=== PATIENT | male | born 1950 | race African-American/Black ===

== ENCOUNTER 2018-10-28 11:03 | Emergency (ER) | payer MEDICARE, BC, MEDICAID ==
[2018-10-28 11:58] LABS: #Basophils 0.1 thou/uL (0.0-0.2); #Eosinphils 0.1 thou/uL (0.0-0.7); #Lymphocytes 2.2 thou/uL (1.20-3.40); #Monocytes 0.4 thou/uL (0.11-0.59); #Neutrophils 2.5 thou/uL (1.40-6.50); %Basophils 1.1 % (0.0-1.0); %Lymphocytes 41.9 % (21.0-51.0); %Monocytes 8.1 % (0.0-10.0); %Neutrophils 46.8 % (42.0-75.0); Hemoglobin 15.1 g/dL (14.0-18.0); Mean Corpuscular HGB CONC 31.4 g/dL (32.0-36.0); Mean Corpuscular Hemoglobin 28.8 pg (27.0-31.0); Mean Corpuscular Volume 91.7 fL (78.0-98.0); Mean Platelet Volume 10.7 fL (7.4-10.4); Platelet Count 100 thou/uL (130-400); RBC Distribution Width 14.4 % (11.5-14.5); Red Blood Cell (RBC) Count 5.25 mill/uL (4.70-6.10); White Blood Cell (WBC) Count 5.3 thou/uL (4.8-10.8)
[2018-10-28 12:16] LABS: Blood, Urine Large (Negative); Glucose, Urine (Dipstick) Negative (Negative); Leukocyte Negative (Negative); Protein, Urine (Dipstick) > or equal to 300 mg/dL (Neg-Trace)
[2018-10-28 12:19] LABS: Bilirubin Unable to Interpret (Negative); Clarity Turbid (Clear); Nitrite Unable to Interpret (Negative); Urobilinogen UNABLE TO INTERPRET mg/dL (Less than 2)
[2018-10-28 12:21] LABS: ALT (SGPT) Less than 7 U/L (8-55); AST (SGOT) 11 U/L (5-34); Alkaline Phosphatase 90 U/L (40-150); Anion Gap 10 mmol/L (10-20); BUN (Urea Nitrogen) 12 mg/dL (8.4-25.7); Bilirubin, Total 0.5 mg/dL (0.2-1.2); Calc. Creatinine Clearance 0 mL/min (70-130); Calcium 8.4 mg/dL (7.8-10.44); Carbon Dioxide 25 mmol/L (23-31); Chloride 106 mmol/L (98-107); Estimated GFR-MDRD Greater than 90; Globulin 4.2 g/dL (2.4-3.5); Glucose 90 mg/dL (80-115); Potassium 3.5 mmol/L (3.5-5.1); Protein, Total 7.2 g/dL (5.8-8.1); Sodium 137 mmol/L (136-145)
[2018-10-28 12:37] LABS: Bacteria/HPF None Seen HPF (None Seen); RBC/HPF Greater than 50 HPF (0-3); Squamous Epithelial None Seen HPF (0-3)
== END 2018-10-28 15:00 | disposition home or self-care (01) ==
LOC: ERS 11:03
DX: R31.9 Hematuria, unspecified (principal); I48.91 Unspecified atrial fibrillation; I10 Essential (primary) hypertension; Z86.73 Personal history of transient ischemic attack (TIA), and cerebral infarction without residual deficits
CPT/HCPCS: 36415; 80053; 81003; 81015; 83605; 85025; 87077; 87086; 87186; 99283

== ENCOUNTER 2019-03-07 01:57 | Emergency (ER) | payer MEDICARE, BC, MEDICAID ==
--- NOTE | 2019-03-07 08:08 | RAD ---
CHEST 1 VIEW: INDICATION: Difficulty breathing. IMPRESSION: There is cardiomegaly and pulmonary vascular congestion. There is left infrahilar airspace edema. T here is a small left pleural effusion. Tracheostomy tube is in place. No pneumothorax is evident. POS: [facility]
== END 2019-03-07 04:37 | disposition home or self-care (01) ==
LOC: ERS 01:57
DX: J95.09 Other tracheostomy complication (principal); R06.02 Shortness of breath
CPT/HCPCS: 31502; 71045

== ENCOUNTER 2020-04-22 09:35 | Inpatient (IN) | payer MEDICARE, BC, MEDICAID ==
--- NOTE | 2020-04-22 10:57 | RAD ---
XR Chest 1 View Portable History: Dyspnea Comparison: Radiograph March 2020 Findings: Tracheostomy tube tip at the clavicular level. Moderate pleural effusions. Mild compressive atelectasis. Pulmonary arteries are enlarged. Aortic contour is ectatic. Impression: 1. Cardiomegaly and large pleural effusions. 2. Pulmonary hypertension and aortic ectasia.
[2020-04-22 11:09] LABS: ALT (SGPT) 11 U/L (8-55); AST (SGOT) 15 U/L (5-34); Albumin 3.3 g/dL (3.4-4.8); Alkaline Phosphatase 85 U/L (40-110); Anion Gap 23 mmol/L (10-20); BUN (Urea Nitrogen) 31 mg/dL (8.4-25.7); Bilirubin, Total 0.9 mg/dL (0.2-1.2); CK (CPK) 105 U/L (30-200); Calc. Creatinine Clearance 0 mL/min (70-130); Calcium 7.8 mg/dL (7.8-10.44); Carbon Dioxide 22 mmol/L (23-31); Chloride 96 mmol/L (98-107); Globulin 3.9 g/dL (2.4-3.5); Glucose 79 mg/dL (80-115); Lipase 30 U/L (8-78); Potassium 4.8 mmol/L (3.5-5.1); Protein, Total 7.2 g/dL (5.8-8.1); Sodium 136 mmol/L (136-145)
--- NOTE | 2020-04-22 11:45 | CT ---
CT Chest WO Con History: Shortness of breath Comparison: Chest radiograph same day Findings: Moderate left and small-moderate right pleural effusion. No pneumothorax. Heart size is enl arged. No significant pericardial effusion. Renal calculi on the left. Incomplete evaluation with appears to be a mass along the pancreatic tail measuring up to 3.8 cm. Moderate third spacing of fluid. No acute displaced rib fracture. Impression: 1. Moderate left and small-moderate right pleural effusions. 2. Moderate cardiomegaly with right atrial and right ventricular dilatation. 3. Pulmonary hypertension. 4. Left-sided renal calculi. 5. 3.8 cm mass centered at the pancreatic tail concerning for malignancy. Dedicated pancreatic protoc ol CT or MRI is recommended if renal function allows. 6. Cholel[address]iasis. Dr. Stephenson notified of findings via telephone at 11:40 AM.
[2020-04-22] MEDS ORDERED: Azithromycin 500 MG VIAL ONE (11:55)
[2020-04-22] MEDS ORDERED: Dexamethasone 10 MG/ML VIAL ONE (11:55)
--- NOTE | 2020-04-22 12:31 | PDOC.HHP ---
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 Patient also appears to have a history of chronic atrial fibrillation and fairly severe pulmonary hypertension. He is in chronic hypoxic respiratory failure requiring ventilator support 8 hours/day (according to Dr. Ang his banking services advisor) via a chronic trach. Patient reports that he saw Dr. Ang his banking services advisor a couple of days ago. He said since that time he has had worsening shortness of breath and ultimately presented to the emergency department. He does report that he has had some cough. Denies having any fever. Patient's only other concerns is that he says he has been having some difficulty urinating. When pressed he says he basically has not been peeing. Does not n ecessarily have dysuria or urgency. ED Course: Patient's initial chest x-ray appeared to show cardiomegaly with bilateral pleural effusions. ED physician was concerned that the patient had Covid. He gave him a dose of 10 mg of IV Decadron and azithromycin. He also received 1 L of IV fluids. Of note the patient presented initially normotensive but is subsequently been in the upper 80s systolic. Hospitalist ROS - Review of Systems Constitutional: denies: fever, chills Respiratory: reports: cough, shortness of breath. denies: pleuritic pain Cardiovascular: denies: chest pain, palpitations Gastrointestinal: denies: nausea, vomiting, abdominal pain Genitourinary: reports: other (Reduced urine output). denies: dysuria, frequency All other systems reviewed; all pertinent +/- noted in HPI/Subj - Medication Medications: Patient does not know his medications. He appears to be taking warfarin, Lasix, diltiazem, Lipitor, carvedilol Hospitalist History - Past Medical History Source: patient, old records Cardiac: reports: AFIB, HTN, Hyperlipidemia Pulmonary: reports: Other (Pulmonary hypertension) TECHNICAL SUPERVISOR: reports: Other (Incomplete quadriplegia) - Past Surgical History Other Surgical History: Cervical spinal fusion 1996 Lumbar spine surgery x2 Knee surgery Tracheostomy - Family History Family History: reports: no pertinent history - Social History Smoking Status: Never smoker Alcohol: reports: None Living Situation: With Family Other Social History: Patient lives with his who appears to be taking excellent care of him. He is full code. - Exam General Appearance: NAD General - other findings: Trach with trach collar. Slightly lethargic at times Eye: PERRL Heart: no murmur, no gallops, no rubs, irregular Respiratory: no ronchi, rales (Diffuse), wheezes (Occasional, mild.) Respiratory - other findings: Very diminished in general. Gastrointestinal: soft, non-tender, non-distended, normal bowel sounds, no palpable masses Extremities - other findings: Trace edema. Significant atrophy of the lower extremities. Skin: normal turgor Neurological - other findings: Quadriplegia Musculoskeletal: diffuse muscle atrophy Psychiatric: normal affect, lethargic Hospitalist Results - Labs Result Diagrams: 04/22/20 10:34 Lab results: Sodium 136 mmol/L (136-145) 04/22/20 10:34 Potassium 4.8 mmol/L (3.5-5.1) 04/22/20 10:34 Chloride 96 mmol/L (98-107) L 04/22/20 10:34 Carbon Dioxide 22 mmol/L (23-31) L 04/22/20 10:34 BUN 31 mg/dL (8.4-25.7) H 04/22/20 10:34 Creatinine 2.98 mg/dL (0.7-1.3) H 04/22/20 10:34 Glucose 79 mg/dL (80-115) L 04/22/20 10:34 Lactic Acid 2.0 mmol/L (0.5-2.2) 04/22/20 10:34 Calcium 7.8 mg/dL (7.8-10.44) 04/22/20 10:34 Total Bilirubin 0.9 mg/dL (0.2-1.2) 04/22/20 10:34 AST 15 U/L (5-34) 04/22/20 10:34 ALT 11 U/L (8-55) 04/22/20 10:34 Alkaline Phosphatase 85 U/L (40-110) 04/22/20 10:34 Creatine Kinase 105 U/L (30-200) 04/22/20 10:34 Troponin I 0.023 ng/mL (< 0.028) 04/22/20 10:34 B-Natriuretic Peptide 667.5 pg/mL (0-100) H 04/22/20 10:34 Serum Total Protein 7.2 g/dL (5.8-8.1) 04/22/20 10:34 Albumin 3.3 g/dL (3.4-4.8) L 04/22/20 10:34 Lipase 30 U/L (8-78) 04/22/20 10:34 - EKG Interpretation EKG: Atrial fibrillation with good rate control, left bundle branch block. - Radiology Interpretation Chest x-ray Status: image reviewed by me (Pleural effusions with significant cardiomegaly), report reviewed by me CT scan - chest Status: image reviewed by me, report reviewed by me Additional Comment: Impression: 1. Moderate left and small-moderate right pleural effusions. 2. Moderate cardiomegaly with right atrial and right ventricular dilatation. 3. Pulmonary hypertension. 4. Left-sided renal calculi. 5. 3.8 cm mass centered at the pancreatic tail concerning for malignancy. Dedicated pancreatic protocol CT or MRI is recommended if renal function allows. 6. Cholelithiasis. Hospitalist H&P A/P - Problem (1) SOB (shortness of breath) Code(s): R06.02 - SHORTNESS OF BREATH Status: Acute (2) SWETHA (acute kidney injury) Code(s): N17.9 - ACUTE KIDNEY FAILURE, UNSPECIFIED Status: Acute (3) Pulmonary hypertension Code(s): I27.20 - PULMONARY HYPERTENSION, UNSPECIFIED Status: Acute (4) Quadriplegia Code(s): G82.50 - QUADRIPLEGIA, UNSPECIFIED Status: Acute (5) Pancreatic mass Status: Acute (6) Atrial fibrillation Code(s): I48.91 - UNSPECIFIED ATRIAL FIBRILLATION Status: Acute (7) Chronic diastolic (congestive) heart failure Code(s): I50.32 - CHRONIC DIASTOLIC (CONGESTIVE) HEART FAILURE Status: Acute (8) Pleural effusion Code(s): J90 - PLEURAL EFFUSION, NOT ELSEWHERE CLASSIFIED Status: Acute - Plan Plan: Patient is a 69-year-old male with a history of quadriplegia with a trach and chronic daily ventilator support. Patient presented to the emergency department with worsening shortness of breath. In the emergency department the patient was initially found to be mildly hypotensive at 84/45 with a heart rate ranging from 70-110. He was felt to possibly have Covid pneumonia and was given Decadron and azithromycin in the emergency department. Chest x-ray confirmed bilateral pleural effusions and cardiomegaly. CT of the chest was not consistent with Covid pneumonia but did reveal pleural effusions and a 3.8 cm mass in the tail of the pancreas. Shortness of breath: Patient has a history of severe pulmonary hypertension. Patient also has a history of mucous plugging. Has bilateral pleural effusions. Some history of prior effusions concerning for congestive heart failure with elevated BNP. Patient appears slightly encephalopathic at times. Discussed with Dr. Ang. We will try to get the patient back on a ventilator here in the emergency department. Bronchodilators as needed. Covid test is pending. Patient does have an elevated D-dimer although it is not severe. May need to consider pulmonary embolus. Patient cannot receive contrast to his acute kidney injury. Unsure a VQ scan would be helpful in light of his pleural effusions. Patient appears to be on anticoagulation already. Checking INR. Pancreatic mass: Patient has a new finding of a 3.8 cm mass in the tail of the pancreas concerning for possible malignancy. Patient needs dedicated imaging however his renal function precludes any contrast at this time. Will consider reimaging once we attempt to get his renal function improved. Acute kidney injury: Patient's normal GFR has been around 90. Currently it is at 25. We will obtain renal ultrasound. Consult nephrology. Patient reported some decreased urine output but bladder catheterization today revealed 200 cc of urine. Patient reports she has been taking what he believes is adequate amounts of oral intake. Patient is on diuretics and may be dehydrated but he has good skin turgor. His renal indices do not appear to be prerenal in nature. Will gently hydrate. Chronic congestive heart failure: Not entirely clear if this is systolic or diastolic. Appeared to have preserved ejection fraction on his last echo in 2012. Diastolic function could not be fully assessed because of his atrial fibrillation. Currently holding diuretics due to his acute kidney injury. Repeat echocardiogram. Patient's BNP is elevated but it is not significantly different than his previous baselines. Atrial fibrillation: Appears to be permanent: Patient appears to be on calcium channel chad, beta-chad, warfarin. Obtain INR. Holding his diltiazem in light of his blood pressure: Continue with the carvedilol. Chronic hypoxic respiratory failure: Likely secondary to severe pulmonary hypertension. We will attempt to get the patient back on some ventilator support here in the emergency department. Consult Dr. Ang. Pleural effusions: Patient has small to moderate pleural effusions: Possibly related to chronic heart failure. Appear to be more chronic in nature based on his previous imaging.
[2020-04-22 13:19] LABS: Bacteria/HPF 4+ HPF (None Seen); Bilirubin 1+ (Negative); Blood, Urine 1+ (Negative); Clarity Turbid (Clear); Glucose, Urine (Dipstick) Normal (Negative); Ketone, Urine Negative (Negative); Leukocyte 500 Leu/uL (Negative); Nitrite Negative (Negative); Protein, Urine (Dipstick) 70 mg/dL (Neg-Trace); Squamous Epithelial 0-3 HPF (0-3); WBC/HPF Greater than 50 HPF (0-3)
[2020-04-22 13:24] LABS: INR-International Normal Ratio 1.7; PTT 40.2 sec (22.9-36.1); Prothrombin Time 20.3 sec (12.0-14.7)
[2020-04-22 13:49] LABS: Hemoglobin 15.4 g/dL (14.0-18.0); Mean Corpuscular HGB CONC 32.3 g/dL (32.0-36.0); Mean Corpuscular Hemoglobin 30.5 pg (27.0-31.0); Mean Corpuscular Volume 94.3 fL (78.0-98.0); Platelet Count 109 thou/uL (130-400); RBC Distribution Width 15.5 % (11.5-14.5); Red Blood Cell (RBC) Count 5.04 mill/uL (4.70-6.10); White Blood Cell (WBC) Count 6.2 thou/uL (4.8-10.8)
[2020-04-22 13:52] LABS: Band 8 % (5-11); Eosinophils 1 % (0-10); Large Platelets SLIGHT; Lymphocytes 8 % (21-51); MDiff Complete? YES; Monocytes 6 % (0-10); Neutrophil 68 % (42-75); Platelet Morphology Comment Appears Decreased; Polychromasia SLIGHT = 2-3 cells (100X) (0-2/hpf); Reactive Lymphocytes 9 % (0-10); Target Cells SLIGHT = 2-5 cells (100X) (0-1/hpf)
[2020-04-22 13:56] LABS: SARS-CoV-2 NAA Rapid Test Not Detected (NotDetected)
[2020-04-22] MEDS: Sodium Chloride 0.9% 1,000 ML IV SCH (15:02)
[2020-04-22] MEDS ORDERED: Piperacillin/Tazobactam 3.375 GM VIAL ONE (17:00)
[2020-04-22] MEDS: Piperacillin/Tazobactam 3.375 GM in Sodium Chloride 0.9% 100 ML IVPB SCH ×2 (17:00→22:25)
--- NOTE | 2020-04-22 17:23 | CON ---
DATE OF CONSULTATION: 04/22/2020 CONSULTING PHYSICIAN: Irvin Wong MD. REASON FOR CONSULTATION: Respiratory failure. HISTORY OF PRESENT ILLNESS: Mr. Lam is a 69-year-old male whom I know from office visits in the past. He has a history of quadriplegia, requiring nocturnal ventilation via trach. He has been having increasing difficulty with shortness of breath over the last month. He has come to the office twice. His takes excellent care of him and changes out the tracheostomy. He receives most of his care through [facility]. I am not sure what the events were led to him coming to the hospital today. His was not here when I arrived in the emergency room. It looks like he was having difficulty ventilating through his trach. I was able to obtain a bronchoscope and looked in the trach and found a huge mucus plug at the distal portion of the trach, which I was able to remove. The patient is saying that his might have COVID. PAST MEDICAL HISTORY: See above. Additionally, the patient has atrial fibrillation, hypertension, and hyperlipidemia. PAST SURGICAL HISTORY: Cervical spinal fusion, lumbar spine surgery, knee surgery, and tracheostomy. SOCIAL HISTORY: Does not smoke. Does not consume alcohol. Does not use illicit drugs. REVIEW OF SYSTEMS: He has had some weight loss, difficulty coughing last several months. PHYSICAL EXAMINATION: VITAL SIGNS: Heart rate in the 80s, blood pressure 130/70, respiratory rate 18, O2 saturation 91% on mechanical ventilation. GENERAL: He is a chronically ill-appearing male, in no acute distress. HEENT: Pupils are reactive. Sclerae anicteric. Oropharynx clear. NECK: Trach in good position. LUNGS: Poor air movement. CARDIOVASCULAR: S1 and S2. Regular. ABDOMEN: Soft and nontender. EXTREMITIES: Severe muscle wasting. LABORATORY DATA: White blood cell count 6.2, hematocrit 47.5, and platelet count 109. INR is 1.7, PTT 40.2. Sodium 136, potassium 4.8, chloride 96, CO2 of 22, BUN 31, creatinine 2.9, glucose 79. BNP 667. Urinalysis shows proteinuria. His COVID test is negative. CT of the chest was obtained and demonstrates bilateral small pleural effusions. He has cardiomegaly. He has pulmonary events, pulmonary hypertension. He has a 3.8-cm mass in the tail of pancreas, concerning for malignancy. ASSESSMENT: 1. Acute respiratory failure - probably from congestive heart failure, probably exacerbated by mucus plugging distally in his trach. 2. Quadriplegia. 3. Pancreatic mass. PLAN: He will be placed in the ICU on mechanical ventilation. I will start antibiotics and steroids. His heart failure is being addressed by the Hospitalist Service. Further disposition to follow. Job ID: [id number]
[2020-04-22] MEDS: Warfarin Sodium 5 MG TAB PO SCH (18:51)
[2020-04-22] MEDS: methylPREDNISolone Sod Succ 40 MG VIAL IVP SCH (18:52)
--- NOTE | 2020-04-22 19:29 | OP ---
DATE OF PROCEDURE: 04/22/2020 PROCEDURE PERFORMED: Bronchoscopy. PREOPERATIVE DIAGNOSIS: Possible tracheal obstruction. POSTOPERATIVE DIAGNOSIS: Distal tracheal mucous plugging. ANESTHESIA: None. DESCRIPTION OF PROCEDURE: This was done with the patient's verbal consent. The patient had the procedure performed at bedside in the ER. His alarms on the ventilator were showing high peak pressure prior to the procedure. Using an adapter, the bronchoscope was placed into the tracheostomy tube while on volume-cycled ventilation. The patient had a huge mucus plug just distally in the trachea. I had removed this with a large suction catheter. I inspected the rest of the airways and of concern was swelling in the left mainstem bronchus, which could be suction trauma, but also malignancy would have to be in the differential. This will have to be surveyed again later. Job ID: [id number]
[2020-04-22] MEDS: Carvedilol 3.125 MG TAB PO SCH (20:42)
[2020-04-22] MEDS: Atorvastatin Calcium 20 MG TAB PO SCH (20:43)
[2020-04-22] MEDS ORDERED: Famotidine/PF 20 mg/2ml Vial SLOW IVP SCH (21:00)
[2020-04-23] MEDS: methylPREDNISolone Sod Succ 40 MG VIAL IVP SCH ×4 (00:05→17:10)
--- NOTE | 2020-04-23 03:50 | PDOC.BPN ---
- Brief Progress Note Encounter Date: 04/23/20 I was informed of patient being anuric in spite of having IV fluids running. He has history of heart failure and pleural effusion noted on imaging earlier. Echocardiogram ordered for this morning. Given oxygen saturation currently decreasing and given his history of heart failure and severe oliguria with will hold IV fluids. Stat chest x-ray to assess for pulmonary edema
[2020-04-23] MEDS: Sodium Chloride 0.9% 1,000 ML IV SCH ×2 (03:54→16:35)
[2020-04-23 04:13] LABS: INR-International Normal Ratio 2.3; PTT 43.5 sec (22.9-36.1); Prothrombin Time 25.9 sec (12.0-14.7)
[2020-04-23] MEDS: Piperacillin/Tazobactam 3.375 GM in Sodium Chloride 0.9% 100 ML IVPB SCH (04:19)
[2020-04-23 04:20] LABS: Anion Gap 21 mmol/L (10-20); BUN (Urea Nitrogen) 38 mg/dL (8.4-25.7); Calc. Creatinine Clearance 36 mL/min (70-130); Carbon Dioxide 21 mmol/L (23-31); Chloride 99 mmol/L (98-107); Potassium 4.3 mmol/L (3.5-5.1); Sodium 137 mmol/L (136-145)
[2020-04-23 04:21] LABS: Calcium 7.3 mg/dL (7.8-10.44); Glucose 109 mg/dL (80-115)
[2020-04-23 05:48] LABS: Hemoglobin 14.5 g/dL (14.0-18.0); Mean Corpuscular HGB CONC 32.3 g/dL (32.0-36.0); Mean Corpuscular Hemoglobin 30.2 pg (27.0-31.0); Mean Corpuscular Volume 93.4 fL (78.0-98.0); Mean Platelet Volume 11.7 fL (7.4-10.4); Platelet Count 112 thou/uL (130-400); RBC Distribution Width 15.6 % (11.5-14.5); Red Blood Cell (RBC) Count 4.79 mill/uL (4.70-6.10); White Blood Cell (WBC) Count 4.3 thou/uL (4.8-10.8)
[2020-04-23 05:52] LABS: #Monocytes 0.1 thou/uL (0.11-0.59); %Basophils 0.2 % (0.0-1.0); %Eosinophils 0.2 % (0.0-10.0); %Lymphocytes 28.1 % (21.0-51.0); %Monocytes 1.9 % (0.0-10.0); %Neutrophils 69.6 % (42.0-75.0)
[2020-04-23 05:53] LABS: Burr Cells SLIGHT = 2-5 cells (100X) (0-1/hpf); MDiff Complete? YES; Platelet Morphology Comment Appears Decreased; Target Cells SLIGHT = 2-5 cells (100X) (0-1/hpf)
[2020-04-23] MEDS ORDERED: Sodium Chloride 0.9% 500 ML IV SCH (07:45)
--- NOTE | 2020-04-23 08:12 | PRG ---
DATE OF SERVICE: 04/23/2020 Thirty five minutes critical care time. SUBJECTIVE: The patient remains on mechanical ventilation through a tracheostomy. Main issue last night was diminished urine output. I was not called about that. OBJECTIVE: VITAL SIGNS: Temperature 98.6, pulse 115, blood pressure 105/75, O2 saturation 92%. He is on SIMV rate 18, tidal volume 400, PEEP 5, pressure support 20, FiO2 of 60%. 24-hour intake 1446, output 70. HEENT: Unremarkable. NECK: No adenopathy or JVD. LUNGS: Coarse breath sounds. He is leaking air around his tracheostomy tube. ABDOMEN: Soft and nontender. I cannot palpate the bladder. EXTREMITIES: No clubbing, cyanosis, or edema. LABORATORY DATA: White blood cell count 4.3, hematocrit 44.8, and platelet count 112. INR 2.3. Sodium 137, potassium 4.3, chloride 99, CO2 of 21, BUN 38, creatinine 3.2, glucose 109. COVID test was negative. Chest x-ray shows that he turned mostly to the right side, he has bilateral effusions. ASSESSMENT: 1. Chronic respiratory failure requiring mechanical ventilation. 2. Diminished urine output, indicating possible problem with heart failure versus acute renal dysfunction. 3. Pancreatic mass. 4. Spastic quadriplegia. PLAN: 1. We will bladder scan and probably give a fluid challenge. 2. Continue antibiotics, but need to be adjusted for his diminished renal function. 3. Follow culture results. 4. We will continue steroids for now. 5. We will speak with this patient's . Job ID: [id number]
--- NOTE | 2020-04-23 08:59 | RAD ---
CHEST 1 VIEW: HISTORY: Pneumonia. COMPARISON: Radiograph prior day. FINDINGS: Heart size is enlarged. Pleural effusions are present. Tracheostomy is in place with tip in a similar location. No acute osseous abnormality. IMPRESSION: Given the extensive rightward patient rotation, similar examination of the chest with moderate left a nd small to moderate pleural effusion and passive atelectasis. POS: [facility]
[2020-04-23] MEDS ORDERED: Famotidine/PF 20 mg/2ml Vial SLOW IVP SCH (09:00)
[2020-04-23] MEDS: Carvedilol 3.125 MG TAB PO SCH ×2 (10:10→20:03)
[2020-04-23] MEDS: Aspirin Chewable 81 MG TAB PO SCH (10:10)
--- NOTE | 2020-04-23 12:00 | PDOC.HOSPP ---
- Subjective Encounter Date: 04/23/20 Subjective: Patient is more encephalopathic today. He is not able to effectively verbalize. - Objective Vital Signs & Weight: Vital Signs (12 hours) Temp Pulse Resp BP Pulse Ox 04/23/20 11:15 105 H 04/23/20 09:00 21 H 04/23/20 08:00 100.2 F H 21 H 04/23/20 07:20 106 H 105/75 04/23/20 07:00 32 H 04/23/20 05:00 22 H 04/23/20 04:00 98.6 F 109 H 21 H 90 L 04/23/20 03:00 23 H 04/23/20 02:40 113 H 90/69 04/23/20 01:00 24 H 04/23/20 00:00 98.1 F 23 H 95 Weight Admit Weight 265 lb 14.04 oz Weight 265 lb 14.04 oz Most Recent Monitor Data Heart Rate from ECG 113 NIBP 131/80 NIBP BP-Mean 97 Respiration from ECG 2 SpO2 97 I&O: 04/22/20 04/23/20 04/24/20 06:59 06:59 06:59 Intake Total 1446 500 Output Total 70 70 Balance 1376 430 Result Diagrams: 04/23/20 03:50 04/23/20 03:50 Hospitalist ROS - Medication Medications: Active Medications Generic Name Dose Route Start Last Admin Trade Name Freq PRN Reason Stop Dose Admin Aspirin 81 mg 04/23/20 09:00 04/23/20 10:10 Aspirin Chewable 81 Mg Tab PO 81 mg DAILY CHAPARRITA Administration Atorvastatin Calcium 20 mg 04/22/20 21:00 04/22/20 20:43 Atorvastatin Calcium 20 Mg Tab PO 20 mg HS CHAPARRITA Administration Carvedilol 3.125 mg 04/22/20 21:00 04/23/20 10:10 Carvedilol 3.125 Mg Tab PO 3.125 mg BID CHAPARRITA Administration Famotidine 20 mg 04/23/20 09:00 04/23/20 10:10 Famotidine/Pf 20 Mg/2ml Vial SLOW IVP 20 mg DAILY CHAPARRITA Administration Sodium Chloride 1,000 mls @ 75 mls/hr 04/22/20 12:30 04/23/20 03:54 Normal Saline 0.9% IV Not Given .[id number] CHAPARRITA Methylprednisolone Sodium Succinate 20 mg 04/22/20 18:00 04/23/20 06:12 Methylprednisolone Sod Succ 40 Mg Vial IVP 20 mg Q6HR CHAPARRITA Administration Warfarin Sodium 5 mg 04/22/20 17:00 04/22/20 18:51 Warfarin Sodium 5 Mg Tab PO 5 mg 1700 CHAPARRITA Administration - Exam General - other findings: Appears encephalopathic, lethargic. Ventilated via trach. Neck - other findings: Healthy appearing tracheostomy. Heart: RRR, no murmur, no gallops, no rubs, normal peripheral pulses Respiratory: no wheezes, no ronchi Respiratory - other findings: Very diminished at bases. Scattered rales. Gastrointestinal: soft, non-tender, non-distended, normal bowel sounds, no hepatomegaly, no splenomegaly Extremities: no cyanosis, no clubbing Extremities - other findings: Trace edema Skin: normal turgor Neurological - other findings: Incomplete quadriplegia with some proximal muscle movement of the UEs Musculoskeletal: diffuse muscle atrophy Psychiatric: somnolent, lethargic Hosp A/P (1) SOB (shortness of breath) Code(s): R06.02 - SHORTNESS OF BREATH Status: Acute (2) SWETHA (acute kidney injury) Code(s): N17.9 - ACUTE KIDNEY FAILURE, UNSPECIFIED Status: Acute (3) Pulmonary hypertension Code(s): I27.20 - PULMONARY HYPERTENSION, UNSPECIFIED Status: Acute (4) Quadriplegia Code(s): G82.50 - QUADRIPLEGIA, UNSPECIFIED Status: Acute (5) Pancreatic mass Status: Acute (6) Atrial fibrillation Code(s): I48.91 - UNSPECIFIED ATRIAL FIBRILLATION Status: Acute (7) Chronic diastolic (congestive) heart failure Code(s): I50.32 - CHRONIC DIASTOLIC (CONGESTIVE) HEART FAILURE Status: Acute (8) Pleural effusion Code(s): J90 - PLEURAL EFFUSION, NOT ELSEWHERE CLASSIFIED Status: Acute (9) Acute metabolic encephalopathy Code(s): G93.41 - METABOLIC ENCEPHALOPATHY Status: Acute - Plan Patient is a 69-year-old male with a history of quadriplegia with a trach and chronic daily ventilator support. Patient presented to the emergency department with worsening shortness of breath. In the emergency department the patient was initially found to be mildly hypotensive at 84/45 with a heart rate ranging from 70-110. He was felt to possibly have Covid pneumonia and was given Decadron and azithromycin in the emergency department. Chest x-ray confirmed bilateral pleural effusions and cardiomegaly. CT of the chest was not consistent with Covid pneumonia but did reveal pleural effusions and a 3.8 cm mass in the tail of the pancreas. Shortness of breath: Patient has a history of severe pulmonary hypertension. Patient also has a history of mucous plugging. Has bilateral pleural effusions. Some history of prior effusions concerning for congestive heart failure with elevated BNP. Discussed with Dr. Ang. Patient was placed back on the ventilator in the emergency department. Dr. Ang did an initial exam via scope and found a large mucous plug just distal to the trach. This was evacuated. He also noted some inflammatory changes distal to that area. Bronchodilators as needed. Covid test is negative. Patient does have an elevated D-dimer although it is not severe. May need to consider pulmonary embolus. Patient cannot receive contrast to his acute kidney injury. Unsure a VQ scan would be helpful in light of his pleural effusions. Patient appears to be on anticoagulation already. INR is therapeutic Pancreatic mass: Patient has a new finding of a 3.8 cm mass in the tail of the pancreas concerning for possible malignancy. Patient needs dedicated imaging, however his renal function precludes any contrast at this time. Will consider re-imaging once we attempt to get his renal function improved. Acute kidney injury: Patient's normal GFR has been around 90. Currently it is at 23, down from 25 at admission. He has been extremely oliguric. We will obtain renal ultrasound. Consult nephrology. Discussed with Dr. Jimenez. Patient reported some decreased urine output but bladder catheterization in the emergency department revealed 200 cc of urine. Patient reports she has been taking what he believes is adequate amounts of oral intake. Patient is on diuretics and may be dehydrated but he has good skin turgor. His renal indices do not appear to be prerenal in nature. Will gently hydrate. Chronic congestive heart failure: Not entirely clear if this is systolic or diastolic. Appeared to have preserved ejection fraction on his last echo in 2012. Diastolic function could not be fully assessed because of his atrial fibrillation. Currently holding diuretics due to his acute kidney injury. Repeat echocardiogram. Patient's BNP is elevated but it is not significantly different than his previous baselines. Atrial fibrillation: Appears to be permanent: Patient appears to be on calcium channel chad, beta-chad, warfarin. INR was therapeutic Holding his diltiazem in light of his blood pressure: Continue with the carvedilol. Chronic hypoxic respiratory failure: Likely secondary to severe pulmonary hypertension. We will attempt to get the patient back on some ventilator support here in the emergency department. Consult from Dr. Ang appreciated. Pleural effusions: Patient has small to moderate pleural effusions: Possibly related to chronic heart failure. Appear to be more chronic in nature based on his previous imaging. Acute metabolic encephalopathy: Patient appeared slightly encephalopathic on admission. He appears more encephalopathic on 04/23/2020. Etiology is unclear. Would be unlikely that he would have CO2 retention being back on the ventilator. ABGs are in very short supply therefore holding off on obtaining 1 of those now. We will obtain an ammonia level. BUN is not such that you would suspect uremia. May need head CT.
--- NOTE | 2020-04-23 13:24 | CT ---
CT BRAIN WITHOUT CONTRAST: Date: 04/23/2020 HISTORY: Acute encephalopathy. Change in mental status. COMPARISON: 08/12/2011 and 08/28/2010. FINDINGS: No evidence of acute infarct, hemorrhage, midline shift, or abnormal extra-axial fluid collections ar e seen. The ventricular size is normal and the basilar cisterns are patent. Changes of mild chronic s mall vessel ischemic disease are present. The bony calvarium is intact. There is mucosal disease in t he left sphenoid sinus. 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 IMPRESSION: No CT evidence of acute intracranial process. POS: [facility]
--- NOTE | 2020-04-23 13:55 | ULT ---
ADRENAL ULTRASOUND: HISTORY: Acute renal insufficiency with severe oliguria. FINDINGS: The patient is unresponsive and cannot move to be able to see and evaluate the right kidney. The left kidney measures 11.2 cm in length without definite mass or hydronephrosis. There is a Garcia catheter in the urinary bladder which is not satisfactorily distended. IMPRESSION: Limited exam. POS: [facility]
[2020-04-23] MEDS: Albumin 25% 25 GM/100 ML BOT IVPB SCH ×2 (14:15→20:03)
[2020-04-23] MEDS: Warfarin Sodium 5 MG TAB PO SCH (16:35)
[2020-04-23] MEDS: Piperacillin/Tazobactam 2.25 GM in Sodium Chloride 0.9% 100 ML IVPB SCH (16:35)
--- NOTE | 2020-04-23 19:41 | CON ---
DATE OF CONSULTATION: 04/23/2020 CONSULTING PHYSICIAN: Irvin Wong MD REASON FOR CONSULTATION: Acute kidney injury. REASON FOR ADMISSION: Shortness of breath, altered mentation. HISTORY OF PRESENT ILLNESS: A 69-year-old male with history of quadriplegia, AFib, severe pulmonary hypertension, chronic hypoxic respiratory failure, came to the hospital with shortness of breath and was found to have elevated creatinine. His baseline creatinine is around 0.9 and the last one was on 10/28/2018. Per the records here, but he was found to have creatinine of 2.9 and up to 3.2 this morning. Nephrology consulted. The patient got progressively worse with his mentation and this morning he was having altered mentation, not able to give a good history and is being titrated in ICU. He also had a mucus plug, which was cleared by Pulmonology earlier. He is on for chronic follow with Pulmonology. PAST MEDICAL HISTORY: Positive for AFib, hypertension, hyperlipidemia, chronic respiratory failure, pulmonary hypertension. PAST SURGICAL HISTORY: Cervical surgery, lumbar spine surgery, knee surgery, tracheostomy. HOME MEDICATIONS: Reviewed. ALLERGIES: NO KNOWN DRUG ALLERGIES. SOCIAL HISTORY: No smoking, alcohol, or illicit drugs. FAMILY HISTORY: No history of kidney disease. REVIEW OF SYSTEMS: Could not be obtained. PHYSICAL EXAMINATION: GENERAL: Well-built male is unknown and with altered mentation. VITAL SIGNS: Temperature 98.9, pulse 101, respiratory rate 18, blood pressure 134/93. HEENT: Atraumatic and normocephalic. NECK: With trach. CVS: S1, S2 heard. RESPIRATORY: Clear. GI: Abdomen is obese. MUSCULOSKELETAL: 1+ edema. NEUROLOGIC: With altered mentation not oriented. LABORATORY DATA: Potassium 4.3, BUN is 38, creatinine is 3.2. ASSESSMENT AND PLAN: 1. Acute kidney injury, seems to be hypovolemic. But the presentation is complex, given his history of pulmonary hypertension. Plan is to give gentle hydration with albumin if tolerated and monitor renal function, monitor urine output. The patient remains oligoanuric, which is concerning. Plan is to maintain fine fluid balance. 2. No acute indication for dialysis. 3. Acidosis. 4. Cardiorenal syndrome. 5. History of pulmonary hypertension. 6. Chronic hypoxic respiratory failure. 7. Altered mentation. 8. Hypovolemia. 9. Obesity. 10. Prognosis is guarded. Plan is to have gentle hydration as tolerated with close monitor and renal function. Continue supportive care including antibiotics. We will follow the case along with you. Job ID: [id number] MTDD
[2020-04-23] MEDS ORDERED: Vancomycin 1.5 GRAM/300 ML BAG 1.5 GM in Premix Bag 1 BAG IVPB SCH (20:00)
[2020-04-23] MEDS: Atorvastatin Calcium 20 MG TAB PO SCH (20:03)
[2020-04-24] MEDS: methylPREDNISolone Sod Succ 40 MG VIAL IVP SCH ×4 (01:04→17:42)
[2020-04-24] MEDS: Albumin 25% 25 GM/100 ML BOT IVPB SCH ×2 (02:23→08:39)
[2020-04-24] MEDS: Piperacillin/Tazobactam 2.25 GM in Sodium Chloride 0.9% 100 ML IVPB SCH ×2 (04:09→17:42)
[2020-04-24] MEDS: Sodium Chloride 0.9% 1,000 ML IV SCH (04:15)
--- NOTE | 2020-04-24 07:52 | PRG ---
DATE OF SERVICE: 04/24/2020 35 minutes of critical care time. SUBJECTIVE: The patient remains on mechanical ventilation through a tracheostomy. He is more verbal than yesterday. OBJECTIVE: VITAL SIGNS: His temperature is 98.6, pulse 109, blood pressure 136/86, O2 saturation 97%. 24-hour intake 1555, output 635. HEENT: Unremarkable. Trach in good position. LUNGS: Fairly clear anteriorly. CARDIOVASCULAR: S1, S2. Regular. ABDOMEN: Slightly distended. Bowel sounds diminished. EXTREMITIES: Edematous. LABORATORY DATA: Chemistry and CBC are pending. Chest x-ray shows a turned patient probably bilateral small effusions. ASSESSMENT: 1. Acute hypoxic respiratory failure requiring mechanical ventilation. 2. Chronic respiratory failure requiring daily nighttime ventilation. 3. Acute renal failure. 4. Quadriplegia. 5. History of atrial fibrillation. PLAN: 1. Await today's labs to make a further decision about whether to restrict fluids or continue fluids. 2. I have turned down the respiratory rate on his ventilator as well as his FiO2. Job ID: [id number]
[2020-04-24 07:55] LABS: #Lymphocytes 0.8 thou/uL (1.20-3.40); #Monocytes 0.3 thou/uL (0.11-0.59); #Neutrophils 4.9 thou/uL (1.40-6.50); %Basophils 0.3 % (0.0-1.0); %Eosinophils 0.1 % (0.0-10.0); %Lymphocytes 13.2 % (21.0-51.0); %Monocytes 5.7 % (0.0-10.0); %Neutrophils 80.6 % (42.0-75.0); Hemoglobin 14.1 g/dL (14.0-18.0); Mean Corpuscular HGB CONC 32.5 g/dL (32.0-36.0); Mean Corpuscular Volume 92.5 fL (78.0-98.0); Mean Platelet Volume 10.5 fL (7.4-10.4); Platelet Count 102 thou/uL (130-400); RBC Distribution Width 15.2 % (11.5-14.5); Red Blood Cell (RBC) Count 4.68 mill/uL (4.70-6.10)
[2020-04-24 08:10] LABS: Anion Gap 24 mmol/L (10-20); BUN (Urea Nitrogen) 47 mg/dL (8.4-25.7); Calc. Creatinine Clearance 32 mL/min (70-130); Calcium 7.6 mg/dL (7.8-10.44); Carbon Dioxide 18 mmol/L (23-31); Chloride 100 mmol/L (98-107); Glucose 121 mg/dL (80-115); Potassium 4.4 mmol/L (3.5-5.1); Sodium 138 mmol/L (136-145)
--- NOTE | 2020-04-24 08:10 | RAD ---
Portable frontal chest radiograph: 04/24/2020 COMPARISON: 04/23/2020 HISTORY: Pneumonia FINDINGS: Stable tracheostomy tube. The patient is rotated to the right. Cardiac silhouette is marked ly enlarged and deviated to the right. There is dense opacity in the perihilar regions and both lung bases suggesting bibasilar consolidation/collapse and bilateral pleural effusions. The lung base s are not fully imaged on this exam. IMPRESSION: No significant interval change.
[2020-04-24 08:12] LABS: INR-International Normal Ratio 4.7
[2020-04-24] MEDS: Pantoprazole 40 MG VIAL IVP SCH (08:39)
[2020-04-24] MEDS: Aspirin Chewable 81 MG TAB PO SCH (08:39)
[2020-04-24] MEDS: Carvedilol 3.125 MG TAB PO SCH ×2 (08:39→19:52)
--- NOTE | 2020-04-24 10:09 | PDOC.HOSPP ---
- Subjective Encounter Date: 04/24/20 Encounter Time: 08:45 Subjective: awake, is on vent via trach moves upper extremities left upper better than right upper, not much of his lower extr - Objective Vital Signs & Weight: Vital Signs (12 hours) Temp Pulse Resp BP Pulse Ox 04/24/20 09:00 97.9 F 04/24/20 08:00 19 04/24/20 07:30 99 04/24/20 07:00 18 04/24/20 05:00 18 04/24/20 03:00 18 04/24/20 02:13 100 04/24/20 01:00 18 04/24/20 00:38 98.6 F 98 18 147/74 H 97 04/23/20 23:00 18 04/23/20 22:16 112 H Weight Admit Weight 265 lb 14.04 oz Weight 265 lb 14.04 oz Most Recent Monitor Data Heart Rate from ECG 103 NIBP 118/85 NIBP BP-Mean 96 Respiration from ECG 1 SpO2 91 I&O: 04/23/20 04/24/20 04/25/20 06:59 06:59 06:59 Intake Total 1446 1555 315 Output Total 70 635 175 Balance 1376 920 140 Result Diagrams: 04/24/20 07:39 04/24/20 07:39 Additional Labs: Accuchecks 04/23/20 12:12 POC Glucose 115 H Hospitalist ROS - Medication Medications: Active Medications Generic Name Dose Route Start Last Admin Trade Name Freq PRN Reason Stop Dose Admin Aspirin 81 mg 04/23/20 09:00 04/24/20 08:39 Aspirin Chewable 81 Mg Tab PO 81 mg DAILY CHAPARRITA Administration Atorvastatin Calcium 20 mg 04/22/20 21:00 04/23/20 20:03 Atorvastatin Calcium 20 Mg Tab PO 20 mg HS CHAPARRITA Administration Carvedilol 3.125 mg 04/22/20 21:00 04/24/20 08:39 Carvedilol 3.125 Mg Tab PO 3.125 mg BID CHAPARRITA Administration Sodium Chloride 1,000 mls @ 75 mls/hr 04/22/20 12:30 04/24/20 04:15 Normal Saline 0.9% IV Not Given .[id number] CHAPARRITA Piperacillin Sod/Tazobactam 100 mls @ 200 mls/hr 04/23/20 16:00 04/24/20 04:09 Sod 2.25 gm/ Sodium Chloride IVPB 100 mls 0400,1600 CHAPARRITA Administration Methylprednisolone Sodium Succinate 20 mg 04/22/20 18:00 04/24/20 06:45 Methylprednisolone Sod Succ 40 Mg Vial IVP 20 mg Q6HR CHAPARRITA Administration Pantoprazole Sodium 40 mg 04/24/20 09:00 04/24/20 08:39 Pantoprazole 40 Mg Vial IVP 40 mg DAILY CHAPARRITA Administration - Exam General Appearance: ill appearing Eye: PERRL, anicteric sclera ENT: no oropharyngeal lesions, moist mucosa Neck: no JVD Neck - other findings: trach+ Heart: RRR, no murmur Respiratory: no wheezes, rales, rhonchi Gastrointestinal: soft, non-tender, non-distended, normal bowel sounds Extremities: no cyanosis, 2+ LE edema Neurological - other findings: quadriparesis, dense paraplegia of LE Hosp A/P (1) Acute and chronic respiratory failure with hypoxia Code(s): J96.21 - ACUTE AND CHRONIC RESPIRATORY FAILURE WITH HYPOXIA Status: Acute (2) SWETHA (acute kidney injury) Code(s): N17.9 - ACUTE KIDNEY FAILURE, UNSPECIFIED Status: Acute (3) Acute metabolic encephalopathy Code(s): G93.41 - METABOLIC ENCEPHALOPATHY Status: Acute (4) Atrial fibrillation Code(s): I48.91 - UNSPECIFIED ATRIAL FIBRILLATION Status: Chronic Qualifiers: Atrial fibrillation type: paroxysmal Qualified Code(s): I48.0 - Paroxysmal atrial fibrillation (5) Chronic diastolic (congestive) heart failure Code(s): I50.32 - CHRONIC DIASTOLIC (CONGESTIVE) HEART FAILURE Status: Acute (6) Pancreatic mass Status: Acute (7) Pulmonary hypertension Code(s): I27.20 - PULMONARY HYPERTENSION, UNSPECIFIED Status: Chronic (8) Quadriplegia Code(s): G82.50 - QUADRIPLEGIA, UNSPECIFIED Status: Chronic - Plan has severe ansarca with fluid retention worse in lower extremities needs diuresis but has low intravascular volume, is on alb infusions, renal function is getting worse, may have to start HD continue asp, lipitor, coreg, steroids, zosyn. Hold coumadin inr is >4 today prognosis guarded weaning per pulm advice
[2020-04-24] MEDS ORDERED: Sodium Chloride 0.9% 1,000 ML IV SCH (12:32)
[2020-04-24] MEDS ORDERED: Warfarin Sodium 5 MG TAB PO SCH (17:00)
--- NOTE | 2020-04-24 17:51 | PRG ---
DATE OF SERVICE: 04/24/2020 SUBJECTIVE: The patient was seen and examined at bedside, son was at the bedside too. The patient is more alert today, but still not able to have good conversation. OBJECTIVE: GENERAL: An elderly obese male, in no apparent distress. VITAL SIGNS: Temperature 98.8, pulse 94, respiratory rate 18, and blood pressure 124/81. HEENT: Atraumatic and normocephalic. NECK: Trach present. CV: S1 and S2 heard. RESPIRATORY: Clear. GI: Abdomen is obese. MUSCULOSKELETAL: 1+ edema. NEUROLOGIC: Awake. LABORATORY DATA: Potassium is 4.4, BUN is 47, and creatinine is 3.7. ASSESSMENT AND PLAN: 1. Acute kidney injury on chronic kidney disease stage 3. Renal function getting worse. a. But urine output seems to be getting better. We will reduce IV fluids to 50 mL/h and monitor. Monitor cardiorespiratory status. 2. Chronic hypoxic respiratory failure. 3. Cardiorenal syndrome. 4. History of severe pulmonary hypertension. 5. Acidosis. 6. Altered mentation. 7. Obesity. Plan to reduce IV fluids to 50 mL/h. Continue on albumin with close monitor of cardiorespiratory status. Urine output seems to be slightly better. We will follow. Job ID: [id number]
[2020-04-24] MEDS: Atorvastatin Calcium 20 MG TAB PO SCH (19:52)
[2020-04-25] MEDS: methylPREDNISolone Sod Succ 40 MG VIAL IVP SCH ×3 (01:10→21:27)
[2020-04-25 04:09] LABS: Prothrombin Time 39.8 sec (12.0-14.7)
[2020-04-25] MEDS ORDERED: Furosemide 40 MG/4 ML VIAL ONE (04:50)
[2020-04-25] MEDS ORDERED: Furosemide 40 MG/4 ML VIAL SLOW IVP SCH (05:00)
[2020-04-25 05:06] LABS: Anion Gap 16 mmol/L (10-20); BUN (Urea Nitrogen) 51 mg/dL (8.4-25.7); Calc. Creatinine Clearance 33 mL/min (70-130); Calcium 7.5 mg/dL (7.8-10.44); Carbon Dioxide 22 mmol/L (23-31); Chloride 103 mmol/L (98-107); Glucose 191 mg/dL (80-115); Potassium 4.4 mmol/L (3.5-5.1); Sodium 137 mmol/L (136-145)
[2020-04-25 05:08] LABS: Band 6 % (5-11); Hemoglobin 14.4 g/dL (14.0-18.0); Lymphocytes 9 % (21-51); MDiff Complete? YES; Mean Corpuscular HGB CONC 31.7 g/dL (32.0-36.0); Mean Corpuscular Hemoglobin 28.8 pg (27.0-31.0); Mean Corpuscular Volume 90.7 fL (78.0-98.0); Mean Platelet Volume 10.9 fL (7.4-10.4); Monocytes 1 % (0-10); Neutrophil 83 % (42-75); Platelet Count 111 thou/uL (130-400); Platelet Morphology Comment Appears Decreased; RBC Distribution Width 15.2 % (11.5-14.5); Reactive Lymphocytes 1 % (0-10); Red Blood Cell (RBC) Count 5.02 mill/uL (4.70-6.10); Target Cells SLIGHT = 2-5 cells (100X) (0-1/hpf); White Blood Cell (WBC) Count 7.3 thou/uL (4.8-10.8)
[2020-04-25] MEDS: Piperacillin/Tazobactam 2.25 GM in Sodium Chloride 0.9% 100 ML IVPB SCH ×2 (07:17→15:59)
--- NOTE | 2020-04-25 07:51 | PRG ---
DATE OF SERVICE: 04/25/2020 30 minutes of critical care time. SUBJECTIVE: The patient remains on mechanical ventilation through a tracheostomy. He indicates that he feels better today. OBJECTIVE: VITAL SIGNS: His temperature is 98.6, pulse 128, blood pressure 131/107, O2 saturation 93%. Total intake 1211, output 1435. HEENT: Unremarkable. NECK: No adenopathy or JVD. LUNGS: Diminished breath sounds anteriorly bilaterally. CARDIAC: S1, S2. Regular. ABDOMEN: Soft, nontender. EXTREMITIES: Edematous throughout. LABORATORY DATA: Sodium 137, potassium 4.4, chloride 103, CO2 of 22, BUN 51, creatinine 3.5, glucose 191. White blood cell count 7.3, hematocrit 45.5, platelet count 111. His cultures are negative today. ASSESSMENT: 1. Chronic respiratory failure requiring mechanical ventilation. 2. Acute renal failure. 3. History of quadriplegia. 4. History of atrial fibrillation. 5. Over anticoagulation. PLAN: 1. Anticoagulation is being held. 2. Continue antibiotics. 3. Decrease steroid dose. 4. Try him on CPAP pressure support mode and slowly wean pressure support as tolerated. The patient ordinarily does not need mechanical ventilation during the day at home. 5. The patient got a dose of diuretics last night. Job ID: [id number]
--- NOTE | 2020-04-25 08:45 | RAD ---
PORTABLE CHEST: INDICATION: Pneumonia. CCU followup. COMPARISON: 04/24/2020. FINDINGS/IMPRESSION: The patient is rotated starting in the chest. Bibasilar opacification is again seen consistent with bilateral effusions and bibasilar infiltrates and atelectasis. Chest findings do not appear signific antly changed from yesterday. POS: [facility]
[2020-04-25] MEDS: Aspirin Chewable 81 MG TAB PO SCH (10:24)
[2020-04-25] MEDS: Carvedilol 3.125 MG TAB PO SCH ×2 (10:25→21:27)
[2020-04-25] MEDS: Pantoprazole 40 MG VIAL IVP SCH (10:32)
--- NOTE | 2020-04-25 12:21 | PRG ---
DATE OF SERVICE: 04/25/2020 SUBJECTIVE: Patient was seen and examined at bedside. More awake today. was at the bedside. OBJECTIVE: General: This is an obese male, in no apparent distress. Vital Signs: Temperature 99.2, pulse 113, , blood pressure 157/108. HEENT: Atraumatic, normocephalic. Neck: Trach present. Cardiovascular: S1, S2 heard. Respiratory: Clear. Gastrointestinal: Abdomen is soft. Musculoskeletal: 2+ edema. Neurologic: Awake. Psychiatric: Mood and affect normal. LABORATORY DATA: Potassium 4.4, BUN is 51, creatinine 3.5. ASSESSMENT AND PLAN: 1. Acute kidney injury on chronic kidney disease. Labs are slightly stable. Creatinine is stable. BUN went up. He was given a dose of Lasix for pink frothy sputum overnight. 2. Chronic hypoxic respiratory failure. 3. Cardiorenal syndrome. 4. Severe pulmonary hypertension. 5. Acidosis. 6. Altered mentation, better. 7. Obesity. Labs are stable. Making more urine. Okay with using Lasix p.r.n. with close monitoring of labs. We will follow. Prognosis is poor. Discussed findings with at bedside and the patient. Job ID: [id number]
--- NOTE | 2020-04-25 14:26 | PDOC.HOSPP ---
- Subjective Encounter Date: 04/25/20 Subjective: Patient report he is feeling a bit better. He was able to eat some lunch. Denies any specific complaints. His did clarify that he was actually taking Eliquis at home rather than warfarin. - Objective Vital Signs & Weight: Vital Signs (12 hours) Temp Pulse Resp Pulse Ox 04/25/20 11:18 102 H 04/25/20 09:00 20 04/25/20 08:00 99.2 F 95 04/25/20 07:07 113 H 04/25/20 07:00 20 04/25/20 05:00 20 04/25/20 04:00 20 95 04/25/20 03:00 20 Weight Admit Weight 265 lb 14.04 oz Weight 265 lb 14.04 oz Most Recent Monitor Data Heart Rate from ECG 113 NIBP 157/108 NIBP BP-Mean 124 Respiration from ECG 22 SpO2 96 I&O: 04/24/20 04/25/20 04/26/20 06:59 06:59 06:59 Intake Total 1555 1211 240 Output Total 607 9953 920 Balance 920 -224 -162 Result Diagrams: 04/25/20 03:55 04/25/20 03:55 Hospitalist ROS - Medication Medications: Active Medications Generic Name Dose Route Start Last Admin Trade Name Freq PRN Reason Stop Dose Admin Aspirin 81 mg 04/23/20 09:00 04/25/20 10:24 Aspirin Chewable 81 Mg Tab PO 81 mg DAILY CHAPARRITA Administration Atorvastatin Calcium 20 mg 04/22/20 21:00 04/24/20 19:52 Atorvastatin Calcium 20 Mg Tab PO 20 mg HS CHAPARRITA Administration Carvedilol 3.125 mg 04/22/20 21:00 04/25/20 10:25 Carvedilol 3.125 Mg Tab PO 3.125 mg BID CHAPARRITA Administration Piperacillin Sod/Tazobactam 100 mls @ 200 mls/hr 04/23/20 16:00 04/25/20 07:17 Sod 2.25 gm/ Sodium Chloride IVPB Not Given 0400,1600 CHAPARRITA Pantoprazole Sodium 40 mg 04/24/20 09:00 04/25/20 10:32 Pantoprazole 40 Mg Vial IVP 40 mg DAILY CHAPARRITA Administration - Exam General Appearance: NAD General - other findings: Much more awake and alert. Heart: RRR, no murmur, no gallops, no rubs, normal peripheral pulses Respiratory: no wheezes, no ronchi, rales (Mild scattered rales) Gastrointestinal: soft, non-tender, non-distended, normal bowel sounds Extremities: 2+ LE edema Skin: normal turgor Neurological: no focal deficits Musculoskeletal - other findings: Incomplete quadriplegia with some modest movement of the upper extremities Psychiatric: flat affect Hosp A/P (1) SOB (shortness of breath) Code(s): R06.02 - SHORTNESS OF BREATH Status: Acute (2) SWETHA (acute kidney injury) Code(s): N17.9 - ACUTE KIDNEY FAILURE, UNSPECIFIED Status: Acute (3) Pulmonary hypertension Code(s): I27.20 - PULMONARY HYPERTENSION, UNSPECIFIED Status: Chronic (4) Quadriplegia Code(s): G82.50 - QUADRIPLEGIA, UNSPECIFIED Status: Chronic (5) Pancreatic mass Status: Acute (6) Atrial fibrillation Code(s): I48.91 - UNSPECIFIED ATRIAL FIBRILLATION Status: Chronic Qualifiers: Atrial fibrillation type: paroxysmal Qualified Code(s): I48.0 - Paroxysmal atrial fibrillation (7) Chronic diastolic (congestive) heart failure Code(s): I50.32 - CHRONIC DIASTOLIC (CONGESTIVE) HEART FAILURE Status: Acute (8) Pleural effusion Code(s): J90 - PLEURAL EFFUSION, NOT ELSEWHERE CLASSIFIED Status: Acute (9) Acute metabolic encephalopathy Code(s): G93.41 - METABOLIC ENCEPHALOPATHY Status: Acute - Plan Patient is a 69-year-old male with a history of quadriplegia with a trach and chronic daily ventilator support. Patient presented to the emergency department with worsening shortness of breath. In the emergency department the patient was initially found to be mildly hypotensive at 84/45 with a heart rate ranging from 70-110. He was felt to possibly have Covid pneumonia and was given Decadron and azithromycin in the emergency department. Chest x-ray confirmed bilateral pleural effusions and cardiomegaly. CT of the chest was not consistent with Covid pneumonia but did reveal pleural effusions and a 3.8 cm mass in the tail of the pancreas. Shortness of breath: Patient has a history of severe pulmonary hypertension. Patient also has a history of mucous plugging. Has bilateral pleural effusions. Some history of prior effusions concerning for congestive heart failure with elevated BNP. Discussed with Dr. Ang. Patient was placed back on the ventilator in the emergency department. Dr. Ang did an initial exam via scope and found a large mucous plug just distal to the trach. This was evacuated. He also noted some inflammatory changes distal to that area. Bronchodilators as needed. Covid test is negative. Continues with ventilator support under the care of pulmonology. Attempting to wean as tolerated. Seems to be slightly better after some diuresis on the evening of 04/24/2020. Pancreatic mass: Patient has a new finding of a 3.8 cm mass in the tail of the pancreas concerning for possible malignancy. Patient needs dedicated imaging, however his renal function precludes any contrast at this time. Will consider re-imaging once we attempt to get his renal function improved. Acute kidney injury: Patient's normal GFR has been around 90. Presented with a GFR of 23 and severe oliguria. Renal ultrasound has not been adequate to fully assess the kidneys because of positioning. Consulted nephrology. No indications for acute dialysis. Patient reported some decreased urine output but bladder catheterization in the emergency department revealed 200 cc of urine. His renal indices did not appear to be prerenal in nature. Hydrated. Ultimately patient appeared to have some volume overload but responded well to Lasix. Has had decent urine output since that time. Chronic congestive heart failure: Not entirely clear if this is systolic or diastolic. Appeared to have preserved ejection fraction on his last echo in 2012. Diastolic function could not be fully assessed because of his atrial fibrillation. Currently holding diuretics due to his acute kidney injury. Repeat echocardiogram. Patient's BNP is elevated but it is not significantly different than his previous baselines. Did have some pink frothy sputum noted on 04/24/2020. He received a dose of Lasix and had significant urine output and improvement of his respiratory status. Atrial fibrillation: Appears to be permanent: Patient appears to be on calcium channel chad, beta-chad, warfarin. INR was therapeutic Holding his diltiazem in light of his blood pressure: Continue with the carvedilol. 04/25/2020 patient's reported the patient was not actually on warfarin but was taking Eliquis at home. On that date his INR continued to be elevated at 4.0. We will continue to monitor. If it should come down to a subtherapeutic range would consider his renal function at that time to make a decision regarding the treatment Chronic hypoxic respiratory failure: Likely secondary to severe pulmonary hypertension. We will attempt to get the patient back on some ventilator support here in the emergency department. Consult from Dr. Ang appreciated. Pleural effusions: Patient has small to moderate pleural effusions: Possibly related to chronic heart failure. Appear to be more chronic in nature based on his previous imaging. Acute metabolic encephalopathy: Patient appeared slightly encephalopathic on admission. He appears more encephalopathic on 04/23/2020. Had a normal ammonia level. CT head was negative. Subsequently improved with the patient was essentially back to his baseline mental status on 04/25/2020.
[2020-04-25] MEDS: Atorvastatin Calcium 20 MG TAB PO SCH (21:27)
[2020-04-26 04:11] LABS: INR-International Normal Ratio 2.6; Prothrombin Time 28.1 sec (12.0-14.7)
[2020-04-26] MEDS: Piperacillin/Tazobactam 2.25 GM in Sodium Chloride 0.9% 100 ML IVPB SCH ×2 (04:15→17:15)
[2020-04-26 04:35] LABS: Anion Gap 16 mmol/L (10-20); BUN (Urea Nitrogen) 53 mg/dL (8.4-25.7); Calc. Creatinine Clearance 41 mL/min (70-130); Calcium 7.4 mg/dL (7.8-10.44); Carbon Dioxide 22 mmol/L (23-31); Chloride 104 mmol/L (98-107); Glucose 160 mg/dL (80-115); Sodium 138 mmol/L (136-145)
[2020-04-26 06:43] LABS: Hemoglobin 15.5 g/dL (14.0-18.0); Mean Corpuscular HGB CONC 32.3 g/dL (32.0-36.0); Mean Corpuscular Hemoglobin 29.3 pg (27.0-31.0); Mean Corpuscular Volume 90.7 fL (78.0-98.0); Mean Platelet Volume 11.1 fL (7.4-10.4); Platelet Count 126 thou/uL (130-400); RBC Distribution Width 15.6 % (11.5-14.5); Red Blood Cell (RBC) Count 5.28 mill/uL (4.70-6.10); White Blood Cell (WBC) Count 9.5 thou/uL (4.8-10.8)
[2020-04-26] MEDS ORDERED: Furosemide 40 MG/4 ML VIAL SLOW IVP SCH (08:00)
[2020-04-26 08:14] LABS: Band 8 % (5-11); Lymphocytes 2 % (21-51); MDiff Complete? YES; Monocytes 2 % (0-10); Neutrophil 77 % (42-75); Nucleated RBC 1 % (0); Platelet Morphology Comment Appears Decreased; Polychromasia SLIGHT = 2-3 cells (100X) (0-2/hpf); Reactive Lymphocytes 11 % (0-10)
--- NOTE | 2020-04-26 08:17 | RAD ---
Exam: Chest one view HISTORY:Pneumonia. Follow-up exam. Comparison: 04/25/2020 FINDINGS: Lines and tubes: Stable tracheostomy Cardiac silhouette:Persistent cardiomegaly Aorta: Unremarkable Pulmonary vessels: Normal Costophrenic angles: Worsening bilateral pleural effusions. LUNGS: Worsening opacification of the lung parenchyma. Pneumothorax: No obvious pneumothorax. Patient positioning limits evaluation. Osseous abnormalities: None IMPRESSION: Worsening pleural and parenchymal changes. Worsening multi lobar pneumonia. Component of congestive heart failure cannot be excluded given marked cardiomegaly.
--- NOTE | 2020-04-26 08:25 | PRG ---
DATE OF SERVICE: 04/26/2020 SUBJECTIVE: The patient remains on mechanical ventilation through tracheostomy. There have been no acute changes overnight. OBJECTIVE: VITAL SIGNS: Temperature is 99.1, pulse 120, blood pressure 98/74, O2 saturation in the mid 90s. 24-hour intake 1060, output 2325. HEENT: Unremarkable. NECK: No adenopathy or JVD. LUNGS: Fairly clear anteriorly. CARDIAC: S1 and S2. Regular. ABDOMEN: Slightly distended. EXTREMITIES: Trace edema. DIAGNOSTIC STUDIES: Chest x-ray demonstrates grossly rotated patient probable layering of pleural effusions, difficult to tell what was going on the right side. LABORATORY DATA: White blood cell count 9.5, hematocrit 47.9, and platelet count 126. INR 2.6. Sodium 138, potassium 4, chloride 104, CO2 of 22, BUN 53, creatinine 2.8, and glucose 160. ASSESSMENT: 1. Chronic respiratory failure requiring mechanical ventilation. 2. History of quadriplegia. 3. Acute renal failure with slightly improved BUN and creatinine. 4. Atrial fibrillation. 5. Better PT and INR. PLAN: 1. Restart anticoagulation at a lower dose. 2. Continue steroids and antibiotics. 3. Trial trach collar during the day as he does this at home. 4. Given the appearance of his x-ray, I will give him another dose of diuretic today. Job ID: [id number]
[2020-04-26] MEDS: methylPREDNISolone Sod Succ 40 MG VIAL IVP SCH ×2 (09:00→20:04)
[2020-04-26] MEDS: Aspirin Chewable 81 MG TAB PO SCH (09:13)
[2020-04-26] MEDS: Carvedilol 3.125 MG TAB PO SCH ×2 (09:13→20:03)
[2020-04-26] MEDS: Pantoprazole 40 MG VIAL IVP SCH (09:14)
--- NOTE | 2020-04-26 12:04 | PRG ---
DATE OF SERVICE: 04/26/2020 SUBJECTIVE: Patient was seen and examined at bedside and overnight events noted. Patient denies any shortness of breath or chest pain or palpitation. No history of nausea or vomiting or diarrhea or fever or chills or cramps. OBJECTIVE: General: This is a well-built male, in no apparent distress Vital Signs: Temperature 98.7. Heart Rate 118. Respiratory rate 15. Blood pressure 107/79. HEENT: Atraumatic, normocephalic. Oral mucosa is moist. Neck: Trach present. Cardiovascular: S1, S2 heard. Rate and rhythm regular. Respiratory: Clear to auscultation. Gastrointestinal: Abdomen is soft. Musculoskeletal: No tenderness. No edema. Dermatologic: No skin rash. Neurologic: Alert and awake and oriented x3. No focal neurologic deficits. Moving all the extremities. Psychiatric: Mood and affect normal. LABORATORY DATA: Potassium 4.0, BUN is 53, creatinine is 2.8. ASSESSMENT AND PLAN: 1. Acute kidney injury on chronic kidney disease stage 3. Renal function with improvement despite the use of diuretics, most likely cardiorenal syndrome. 2. Cardiorenal syndrome, responding to diuretics and creatinine getting better. 3. Chronic hypoxic respiratory failure. 4. Severe pulmonary hypertension and acidosis. 5. Altered mentation. 6. Obesity. The patient is responding to Lasix with good urine output and improvement in renal labs. Continue current management with close monitoring of labs. We will follow. Job ID: [id number]
--- NOTE | 2020-04-26 12:17 | PDOC.HOSPP ---
- Subjective Encounter Date: 04/26/20 Subjective: Feels well. Says he is breathing comfortably. Request and mask for his eyes - Objective Vital Signs & Weight: Vital Signs (12 hours) Temp Pulse Resp BP 04/26/20 08:00 98.7 F 04/26/20 07:24 112 H 132/86 04/26/20 05:00 20 04/26/20 03:00 20 04/26/20 02:20 128 H 04/26/20 01:00 20 Weight Admit Weight 265 lb 14.04 oz Weight 265 lb 14.04 oz Most Recent Monitor Data Heart Rate from ECG 123 NIBP 101/57 NIBP BP-Mean 71 Respiration from ECG 15 SpO2 82 I&O: 04/25/20 04/26/20 04/27/20 06:59 06:59 06:59 Intake Total 1211 1060 Output Total 7189 0351 289 Balance -224 -1265 -235 Result Diagrams: 04/26/20 05:33 04/26/20 03:47 Hospitalist ROS - Medication Medications: Active Medications Generic Name Dose Route Start Last Admin Trade Name Freq PRN Reason Stop Dose Admin Aspirin 81 mg 04/23/20 09:00 04/26/20 09:13 Aspirin Chewable 81 Mg Tab PO 81 mg DAILY CHAPARRITA Administration Atorvastatin Calcium 20 mg 04/22/20 21:00 04/25/20 21:27 Atorvastatin Calcium 20 Mg Tab PO 20 mg HS CHAPARRITA Administration Carvedilol 3.125 mg 04/22/20 21:00 04/26/20 09:13 Carvedilol 3.125 Mg Tab PO 3.125 mg BID CHAPARRITA Administration Piperacillin Sod/Tazobactam 100 mls @ 200 mls/hr 04/23/20 16:00 04/26/20 04:15 Sod 2.25 gm/ Sodium Chloride IVPB 100 mls 0400,1600 CHAPARRITA Administration Methylprednisolone Sodium Succinate 20 mg 04/25/20 21:00 04/26/20 09:00 Methylprednisolone Sod Succ 40 Mg Vial IVP 20 mg Q12HR CHAPARRITA Administration Pantoprazole Sodium 40 mg 04/24/20 09:00 04/26/20 09:14 Pantoprazole 40 Mg Vial IVP 40 mg DAILY CHAPARRITA Administration - Exam General Appearance: NAD, awake alert Heart: RRR, no murmur, no gallops, no rubs, normal peripheral pulses Respiratory: no wheezes, no ronchi, normal chest expansion, no tachypnea, normal percussion, rales (Diffuse, scattered) Gastrointestinal: soft, non-tender, non-distended, normal bowel sounds Extremities: 1+ LE edema Neurological - other findings: Incomplete quadriplegia with some movement of the UEs Psychiatric: normal affect, normal behavior Hosp A/P (1) SOB (shortness of breath) Code(s): R06.02 - SHORTNESS OF BREATH Status: Acute (2) SWETHA (acute kidney injury) Code(s): N17.9 - ACUTE KIDNEY FAILURE, UNSPECIFIED Status: Acute (3) Pulmonary hypertension Code(s): I27.20 - PULMONARY HYPERTENSION, UNSPECIFIED Status: Chronic (4) Quadriplegia Code(s): G82.50 - QUADRIPLEGIA, UNSPECIFIED Status: Chronic (5) Pancreatic mass Status: Acute (6) Atrial fibrillation Code(s): I48.91 - UNSPECIFIED ATRIAL FIBRILLATION Status: Chronic Qualifiers: Atrial fibrillation type: paroxysmal Qualified Code(s): I48.0 - Paroxysmal atrial fibrillation (7) Chronic diastolic (congestive) heart failure Code(s): I50.32 - CHRONIC DIASTOLIC (CONGESTIVE) HEART FAILURE Status: Acute (8) Pleural effusion Code(s): J90 - PLEURAL EFFUSION, NOT ELSEWHERE CLASSIFIED Status: Acute (9) Acute metabolic encephalopathy Code(s): G93.41 - METABOLIC ENCEPHALOPATHY Status: Acute - Plan Patient is a 69-year-old male with a history of quadriplegia with a trach and chronic daily ventilator support. Patient presented to the emergency department with worsening shortness of breath. In the emergency department the patient was initially found to be mildly hypotensive at 84/45 with a heart rate ranging from 70-110. He was felt to possibly have Covid pneumonia and was given Decadron and azithromycin in the emergency department. Chest x-ray confirmed bilateral p leural effusions and cardiomegaly. CT of the chest was not consistent with Covid pneumonia but did reveal pleural effusions and a 3.8 cm mass in the tail of the pancreas. Shortness of breath: Patient has a history of severe pulmonary hypertension. Patient also has a history of mucous plugging. Has bilateral pleural effusions. Some history of prior effusions concerning for congestive heart failure with elevated BNP. Discussed with Dr. Ang. Patient was placed back on the ventilator in the emergency department. Dr. Ang did an initial exam via scope and found a large mucous plug just distal to the trach. This was evacuated. He also noted some inflammatory changes distal to that area. Bronchodilators as needed. Covid test is negative. Continues with ventilator support under the care of pulmonology. Attempting to wean as tolerated. On some persistent evidence of pulmonary edema and required ongoing diuresis. Pancreatic mass: Patient has a new finding of a 3.8 cm mass in the tail of the pancreas concerning for possible malignancy. Patient needs dedicated imaging, however his renal function precludes any contrast at this time. He needs a biopsy. Currently his renal function does not appear to be on track to substantially improve. May need to consider alternative modes of imaging or biopsy. Acute kidney injury: Patient's normal GFR has been around 90. Presented with a GFR of 23 and severe oliguria. Renal ultrasound has not been adequate to fully assess the kidneys because of positioning. Consulted nephrology. No indications for acute dialysis. Patient reported some decreased urine output but bladder catheterization in the emergency department revealed 200 cc of urine. His renal indices did not appear to be prerenal in nature. He was given some IV fluids. Ultimately patient appeared to have some volume overload but responded well to Lasix. Has had decent urine output since that time. Chronic congestive heart failure: Not entirely clear if this is systolic or diastolic. Appeared to have preserved ejection fraction on his last echo in 2012. Diastolic function could not be fully assessed because of his atrial fibrillation. Currently holding diuretics due to his acute kidney injury. Repeat echocardiogram could not give good information due to the inability to h ave the patient properly positioned. Patient's BNP is elevated but it is not significantly different than his previous baselines. Did have some pink frothy sputum noted on 04/24/2020. He received a dose of Lasix and had significant urine output and improvement of his respiratory status. Atrial fibrillation: Appears to be permanent: Patient appears to be on calcium channel chad, beta-chad, warfarin. INR was therapeutic Holding his diltiazem in light of his blood pressure: Continue with the carvedilol. 04/25/2020 patient's reported the patient was not actually on warfarin but was taking Eliquis at home. On that date his INR continued to be elevated at 4.0. We will continue to monitor. On 04/26/2020 his INR was back in the therapeutic range. We will reinitiate Eliquis on 04/27/2020 at a lower dose given his renal function. Chronic hypoxic respiratory failure: Likely secondary to severe pulmonary hypertension. We will attempt to get the patient back on some ventilator support here in the emergency department. Consult from Dr. Ang appreciated. Pleural effusions: Patient has small to moderate pleural effusions: Possibly related to chronic heart failure. Appear to be more chronic in nature based on his previous imaging. Acute metabolic encephalopathy: Patient appeared slightly encephalopathic on admission. He appears more encephalopathic on 04/23/2020. Had a normal ammonia level. CT head was negative. Subsequently improved with the patient was essentially back to his baseline mental status on 04/25/2020.
[2020-04-26] MEDS ORDERED: Warfarin Sodium 2.5 MG TAB PO SCH (17:00)
[2020-04-26] MEDS: Atorvastatin Calcium 20 MG TAB PO SCH (20:03)
[2020-04-27 04:15] LABS: INR-International Normal Ratio 1.8; Prothrombin Time 21.6 sec (12.0-14.7)
[2020-04-27 04:18] LABS: #Lymphocytes 0.9 thou/uL (1.20-3.40); #Monocytes 0.6 thou/uL (0.11-0.59); #Neutrophils 6.9 thou/uL (1.40-6.50); %Basophils 0.3 % (0.0-1.0); %Eosinophils 0.1 % (0.0-10.0); %Lymphocytes 11.1 % (21.0-51.0); %Neutrophils 81.6 % (42.0-75.0); Hemoglobin 15.8 g/dL (14.0-18.0); Mean Corpuscular HGB CONC 32.1 g/dL (32.0-36.0); Mean Corpuscular Hemoglobin 29.9 pg (27.0-31.0); Mean Corpuscular Volume 93.2 fL (78.0-98.0); Mean Platelet Volume 11.7 fL (7.4-10.4); Platelet Count 98 thou/uL (130-400); RBC Distribution Width 15.7 % (11.5-14.5); Red Blood Cell (RBC) Count 5.27 mill/uL (4.70-6.10); White Blood Cell (WBC) Count 8.5 thou/uL (4.8-10.8)
[2020-04-27 04:21] LABS: Anion Gap 15 mmol/L (10-20); BUN (Urea Nitrogen) 53 mg/dL (8.4-25.7); Calc. Creatinine Clearance 41 mL/min (70-130); Calcium 7.6 mg/dL (7.8-10.44); Carbon Dioxide 23 mmol/L (23-31); Chloride 104 mmol/L (98-107); Glucose 160 mg/dL (80-115); Sodium 138 mmol/L (136-145)
[2020-04-27] MEDS: Piperacillin/Tazobactam 2.25 GM in Sodium Chloride 0.9% 100 ML IVPB SCH ×2 (05:13→15:38)
--- NOTE | 2020-04-27 08:08 | RAD ---
EXAM: Single view of the chest HISTORY: Pneumonia COMPARISON: 04/26/2020 FINDINGS: Single view of the chest shows an enlarged cardiomediastinal silhouette. There appear to be bilateral pleural effusions with adjacent atelectasis versus infiltrates. The tracheostomy is unchanged in position. No acute osseous abnormality. IMPRESSION: Cardiomegaly and bilateral pleural effusions with adjacent atelectasis versus infiltrates .
[2020-04-27] MEDS: Apixaban 2.5 MG TAB PO SCH ×2 (09:54→19:51)
[2020-04-27] MEDS: Aspirin Chewable 81 MG TAB PO SCH (09:55)
[2020-04-27] MEDS: Carvedilol 3.125 MG TAB PO SCH ×2 (09:55→19:51)
[2020-04-27] MEDS: Pantoprazole 40 MG VIAL IVP SCH (09:58)
[2020-04-27] MEDS: methylPREDNISolone Sod Succ 40 MG VIAL IVP SCH ×2 (10:01→20:36)
[2020-04-27] MEDS: Albumin 25% 25 GM/100 ML BOT IVPB SCH ×3 (11:11→23:42)
--- NOTE | 2020-04-27 11:44 | PRG ---
DATE OF SERVICE: 04/27/2020 SUBJECTIVE: The patient is seen and examined at bedside. Family member at the bedside and no complaints reported. OBJECTIVE: GENERAL: This is a well-built male, in no apparent distress. VITAL SIGNS: Temperature 98.1, pulse 111, respiratory rate 18, blood pressure 110/66. HEENT: Atraumatic and normocephalic. CV: S1 and S2, heard. RESPIRATORY: Coarse breath sounds. GI: Abdomen is soft. MUSCULOSKELETAL: 2+ edema. DERMATOLOGIC: No skin rash. NEUROLOGIC: Awake. LABORATORY DATA: Potassium 4.0, BUN is 53, and creatinine is 2.85. ASSESSMENT AND PLAN: 1. Acute kidney injury on chronic kidney disease, stage 3. Labs are stable. The patient with some hypotension this morning. Agree with albumin. 2. Cardiorenal syndrome. 3. Chronic hypoxic respiratory failure. 4. Severe pulmonary hypertension and acidosis. 5. Altered mentation. 6. Obesity. No acute indication for dialysis. We will follow. Job ID: [id number]
--- NOTE | 2020-04-27 11:46 | PDOC.HOSPP ---
- Subjective Encounter Date: 04/27/20 Subjective: Patient reports he is feeling fine. Feels like he is breathing comfortably. - Objective Vital Signs & Weight: Vital Signs (12 hours) Temp Pulse Resp 04/27/20 06:00 21 H 04/27/20 04:00 98.1 F 15 04/27/20 02:05 112 H 04/27/20 02:00 11 L 04/27/20 00:00 97.8 F 10 L 04/26/20 23:45 106 H Weight Admit Weight 265 lb 14.04 oz Weight 265 lb 14.04 oz Most Recent Monitor Data Heart Rate from ECG 111 NIBP 110/66 NIBP BP-Mean 80 Respiration from ECG 13 SpO2 96 I&O: 04/26/20 04/27/20 04/28/20 06:59 06:59 06:59 Intake Total 1060 433.5 Output Total 2325 635 Balance -1265 -201.5 Result Diagrams: 04/27/20 03:46 04/27/20 03:46 Hospitalist ROS - Medication Medications: Active Medications Generic Name Dose Route Start Last Admin Trade Name Freq PRN Reason Stop Dose Admin Albumin Human 25 gm 04/27/20 12:00 04/27/20 11:11 Albumin 25% 25 Gm/100 Ml Bot IVPB 04/28/20 12:01 25 gm Q6HR CHAPARRITA Administration Apixaban 2.5 mg 04/27/20 09:00 04/27/20 09:54 Apixaban 2.5 Mg Tab PO 2.5 mg BID CHAPARRITA Administration Aspirin 81 mg 04/23/20 09:00 04/27/20 09:55 Aspirin Chewable 81 Mg Tab PO 81 mg DAILY CHAPARRITA Administration Atorvastatin Calcium 20 mg 04/22/20 21:00 04/26/20 20:03 Atorvastatin Calcium 20 Mg Tab PO 20 mg HS CHAPARRITA Administration Carvedilol 3.125 mg 04/22/20 21:00 04/27/20 09:55 Carvedilol 3.125 Mg Tab PO 3.125 mg BID CHAPARRITA Administration Piperacillin Sod/Tazobactam 100 mls @ 200 mls/hr 04/23/20 16:00 04/27/20 05:13 Sod 2.25 gm/ Sodium Chloride IVPB 100 mls 0400,1600 CHAPARRITA Administration Methylprednisolone Sodium Succinate 20 mg 04/25/20 21:00 04/27/20 10:01 Methylprednisolone Sod Succ 40 Mg Vial IVP 20 mg Q12HR CHAPARRITA Administration Pantoprazole Sodium 40 mg 04/24/20 09:00 04/27/20 09:58 Pantoprazole 40 Mg Vial IVP 40 mg DAILY CHAPARRITA Administration - Exam General Appearance: NAD, awake alert General - other findings: Trach collar. Obese. Heart: RRR, no murmur, no gallops, no rubs, normal peripheral pulses Heart - other findings: Tachycardia Respiratory: no wheezes, rales, rhonchi Gastrointestinal: soft, non-tender, non-distended, normal bowel sounds, no palpable masses, no hepatomegaly, no splenomegaly, no bruit Extremities: 1+ LE edema Neurological - other findings: Incomplete quadriplegia with some movement of the upper extremities Musculoskeletal: normal tone, normal strength Psychiatric: normal affect, normal behavior, A&O x 3 Hosp A/P (1) SOB (shortness of breath) Code(s): R06.02 - SHORTNESS OF BREATH Status: Acute (2) SWETHA (acute kidney injury) Code(s): N17.9 - ACUTE KIDNEY FAILURE, UNSPECIFIED Status: Acute (3) Pulmonary hypertension Code(s): I27.20 - PULMONARY HYPERTENSION, UNSPECIFIED Status: Chronic (4) Quadriplegia Code(s): G82.50 - QUADRIPLEGIA, UNSPECIFIED Status: Chronic (5) Pancreatic mass Status: Acute (6) Atrial fibrillation Code(s): I48.91 - UNSPECIFIED ATRIAL FIBRILLATION Status: Chronic Qualifiers: Atrial fibrillation type: paroxysmal Qualified Code(s): I48.0 - Paroxysmal atrial fibrillation (7) Chronic diastolic (congestive) heart failure Code(s): I50.32 - CHRONIC DIASTOLIC (CONGESTIVE) HEART FAILURE Status: Acute (8) Pleural effusion Code(s): J90 - PLEURAL EFFUSION, NOT ELSEWHERE CLASSIFIED Status: Acute (9) Acute metabolic encephalopathy Code(s): G93.41 - METABOLIC ENCEPHALOPATHY Status: Acute - Plan Patient is a 69-year-old male with a history of quadriplegia with a trach and chronic daily ventilator support. Patient presented to the emergency department with worsening shortness of breath. In the emergency department the patient was initially found to be mildly hypotensive at 84/45 with a heart rate ranging from 70-110. He was felt to possibly have Covid pneumonia and was given Decadron and azithromycin in the emergency department. Chest x-ray confirmed bilateral pleural effusions and cardiomegaly. CT of the chest was not consistent with Covid pneumonia but did reveal pleural effusions and a 3.8 cm mass in the tail of the pancreas. Shortness of breath, acute on chronic hypoxic respiratory failure: Patient has a history of severe pulmonary hypertension. Patient also has a history of mucous plugging. Combination of the severe pulmonary hypertension along with the mucous plugging is the likely source of his acute on chronic respiratory failure with hypoxia. Has bilateral pleural effusions. Some history of prior effusions concerning for congestive heart failure with elevated BNP. Discussed with Dr. Ang. Patient was placed back on the ventilator in the emergency department. Dr. Ang did an initial exam via scope and found a large mucous plug just distal to the trach. This was evacuated. He also noted some inflammatory changes distal to that area. Bronchodilators as needed. Covid test is negative. Continues with ventilator support under the care of pulmonology. Attempting to wean as tolerated. On some persistent evidence of pulmonary edema and required ongoing diuresis. Pancreatic mass: Patient has a new finding of a 3.8 cm mass in the tail of the pancreas concerning for possible malignancy. Patient needs dedicated imaging, however his renal function precludes any contrast at this time. He needs a biopsy. Currently his renal function does not appear to be on track to substantially improve. May need to consider alternative modes of imaging or biopsy. Acute kidney injury: Patient's normal GFR has been around 90. Presented with a GFR of 23 and severe oliguria. Renal ultrasound has not been adequate to fully assess the kidneys because of positioning. Consulted nephrology. No indications for acute dialysis. Patient reported some decreased urine output but bladder catheterization in the emergency department revealed 200 cc of urine. His renal indices did not appear to be prerenal in nature. He was given some IV fluids. Ultimately patient appeared to have some volume overload but responded well to Lasix. Has had decent urine output since that time. On 04/27/2020 the patient developed some hypotension and required some albumin infusion. Chronic congestive heart failure: Not entirely clear if this is systolic or diastolic. Appeared to have preserved ejection fraction on his last echo in 2012. Diastolic function could not be fully assessed because of his atrial fibrillation. Currently holding diuretics due to his acute kidney injury. Repeat echocardiogram could not give good information due to the inability to have the patient properly positioned. Patient's BNP is elevated but it is not significantly different than his previous baselines. Did have some pink frothy sputum noted on 04/24/2020. He received a dose of Lasix and had significant urine output and improvement of his respiratory status. Atrial fibrillation: Appears to be permanent: Patient appears to be on calcium channel chad, beta-chad, warfarin. INR was therapeutic Holding his diltiazem in light of his blood pressure: Continue with the carvedilol. 04/25/2020 patient's reported the patient was not actually on warfarin but was taking Eliquis at home. On that date his INR continued to be elevated at 4.0. We will continue to monitor. On 04/26/2020 his INR was back in the therapeutic range. We will reinitiate Eliquis on 04/27/2020 at a lower dose given his renal function. Chronic hypoxic respiratory failure: Likely secondary to severe pulmonary hypertension. We will attempt to get the patient back on some ventilator support here in the emergency department. Consult from Dr. Ang appreciated. Pleural effusions: Patient has small to moderate pleural effusions: Possibly related to chronic heart failure. Appear to be more chronic in nature based on his previous imaging. Acute metabolic encephalopathy: Patient appeared slightly encephalopathic on admission. He appears more encephalopathic on 04/23/2020. Had a normal ammonia level. CT head was negative. Subsequently improved with the patient was essentially back to his baseline mental status on 04/25/2020.
[2020-04-27] MEDS: Sodium Chloride 0.9% 1,000 ML IV SCH (16:47)
--- NOTE | 2020-04-27 17:31 | PRG ---
DATE OF SERVICE: 04/27/2020 SUBJECTIVE: Mr. Lam is stable and says that he is comfortable. He is able to talk around his tracheostomy as in the past. Heart rate is 102, respiratory rates in the teens, blood pressure is in the 80s to low 90s. He has been started on some albumin and we have actually given a little more IV fluids starting today. OBJECTIVE: LUNGS: Coarse and clear. HEART: Regular rhythm. ABDOMEN: Soft. VITAL SIGNS: Intake and output are negative 201, today. DIAGNOSTIC STUDIES: Chest x-ray suggestive of bilateral effusions. His ejection fraction on echocardiogram 2 days ago was felt to be normal. The quality of the echo was suboptimal. LABORATORY DATA: White count 8.5, hemoglobin 15.8, platelets 98,000. Electrolytes are normal. BUN 53, creatinine 2.85. Urinalysis on admission did not show significant amount of protein. IMPRESSION: 1. Acute on chronic respiratory failure with quadriplegia, tracheostomy. 2. Acute renal failure on top of chronic kidney disease. I suspect a lot of this is secondary to chronic intravascular volume depletion. 3. History of atrial fibrillation. 4. Probable normal systolic function. PLAN: Continue supportive care. Job ID: [id number]
[2020-04-27] MEDS: Atorvastatin Calcium 20 MG TAB PO SCH (19:51)
[2020-04-28 04:20] LABS: #Lymphocytes 0.8 thou/uL (1.20-3.40); #Monocytes 0.5 thou/uL (0.11-0.59); #Neutrophils 6.7 thou/uL (1.40-6.50); %Eosinophils 0.2 % (0.0-10.0); %Lymphocytes 9.9 % (21.0-51.0); %Monocytes 5.8 % (0.0-10.0); %Neutrophils 84.1 % (42.0-75.0); Hemoglobin 14.7 g/dL (14.0-18.0); Mean Corpuscular HGB CONC 32.4 g/dL (32.0-36.0); Mean Corpuscular Hemoglobin 30.5 pg (27.0-31.0); Mean Corpuscular Volume 94.2 fL (78.0-98.0); Mean Platelet Volume 11.5 fL (7.4-10.4); Platelet Count 78 thou/uL (130-400); RBC Distribution Width 15.6 % (11.5-14.5); Red Blood Cell (RBC) Count 4.83 mill/uL (4.70-6.10)
[2020-04-28] MEDS: Piperacillin/Tazobactam 2.25 GM in Sodium Chloride 0.9% 100 ML IVPB SCH ×2 (04:20→15:40)
[2020-04-28 04:21] LABS: INR-International Normal Ratio 1.9; Prothrombin Time 22.5 sec (12.0-14.7)
[2020-04-28 04:28] LABS: Anion Gap 15 mmol/L (10-20); BUN (Urea Nitrogen) 60 mg/dL (8.4-25.7); Calc. Creatinine Clearance 39 mL/min (70-130); Calcium 7.6 mg/dL (7.8-10.44); Carbon Dioxide 26 mmol/L (23-31); Chloride 104 mmol/L (98-107); Glucose 162 mg/dL (80-115); Potassium 4.1 mmol/L (3.5-5.1); Sodium 141 mmol/L (136-145)
[2020-04-28] MEDS: Albumin 25% 25 GM/100 ML BOT IVPB SCH ×2 (05:05→10:59)
--- NOTE | 2020-04-28 08:20 | RAD ---
Portable frontal chest radiograph: 04/28/2020 COMPARISON: 04/27/2020 HISTORY: Pneumonia FINDINGS: There is worsening opacification of the right hemithorax with now completely opacified righ t hemithorax, markedly worsened when compared to 04/27/2020 examination. The right mainstem bronchus is no longer visualized. Findings may be on the basis of mucous plugging within the right mainstem br onchus. There is a stable tracheostomy tube. There is persistent dense nonspecific opacification of the mid and lower third of the left hemithorax. IMPRESSION: Interval development of complete opacification of the right hemithorax. Findings are susp icious for possible mucous plugging. Follow-up advised.
[2020-04-28] MEDS: methylPREDNISolone Sod Succ 40 MG VIAL IVP SCH ×2 (09:56→20:09)
[2020-04-28] MEDS: Aspirin Chewable 81 MG TAB PO SCH (09:57)
[2020-04-28] MEDS: Pantoprazole 40 MG VIAL IVP SCH (09:57)
[2020-04-28] MEDS: Apixaban 2.5 MG TAB PO SCH ×2 (09:57→20:09)
[2020-04-28] MEDS: Carvedilol 3.125 MG TAB PO SCH ×2 (15:33→20:09)
[2020-04-28] MEDS: Sodium Chloride 0.9% 1,000 ML IV SCH (15:40)
--- NOTE | 2020-04-28 16:25 | PRG ---
DATE OF SERVICE: 04/28/2020 SUBJECTIVE: Mr. Lam says he is feeling well. OBJECTIVE: VITAL SIGNS: Heart rates in the 90s, blood pressure 103/78, oximetry is 95% on trach collar. LUNGS: Remarkable for equal breath sounds. HEART: Regular rhythm. ABDOMEN: Soft. EXTREMITIES: Without asymmetry. Chest x-ray suggestive of mucus plugging on the right. We will see if this improves with overnight ventilation. If not, he will need bronchoscopy tomorrow with therapeutic suctioning. Just change his nebulizer treatments to scheduled. Continue to follow. Job ID: [id number]
--- NOTE | 2020-04-28 16:56 | PDOC.HOSPP ---
- Subjective Encounter Date: 04/28/20 Encounter Time: 09:30 Subjective: Patient seen for follow-up regarding acute kidney injury. No complaints. - Objective Vital Signs & Weight: Vital Signs (12 hours) Temp Pulse Resp Pulse Ox 04/28/20 12:00 98.7 F 04/28/20 11:26 92 L 04/28/20 08:00 98.3 F 95 04/28/20 07:02 113 H 04/28/20 06:00 16 Weight Admit Weight 265 lb 14.04 oz Weight 265 lb 14.04 oz Most Recent Monitor Data Heart Rate from ECG 111 NIBP 121/88 NIBP BP-Mean 99 Respiration from ECG 0 SpO2 95 I&O: 04/27/20 04/28/20 04/29/20 06:59 06:59 06:59 Intake Total 433.5 2272.4 620 Output Total 635 302 190 Balance -201.5 1970.4 430 Result Diagrams: 04/28/20 03:51 04/28/20 03:51 Additional Labs: I reviewed patient's labs and MAR Hospitalist ROS - Review of Systems Constitutional: denies: fever, chills, sweats, weakness, malaise Cardiovascular: denies: chest pain, palpitations, orthopnea, paroxysmal noc. dyspnea, edema, light headedness - Medication Medications: Active Medications Generic Name Dose Route Start Last Admin Trade Name Freq PRN Reason Stop Dose Admin Apixaban 2.5 mg 04/27/20 09:00 04/28/20 09:57 Apixaban 2.5 Mg Tab PO 2.5 mg BID CHAPARRITA Administration Aspirin 81 mg 04/23/20 09:00 04/28/20 09:57 Aspirin Chewable 81 Mg Tab PO 81 mg DAILY CHAPARRITA Administration Atorvastatin Calcium 20 mg 04/22/20 21:00 04/27/20 19:51 Atorvastatin Calcium 20 Mg Tab PO 20 mg HS CHAPARRITA Administration Carvedilol 3.125 mg 04/22/20 21:00 04/28/20 15:33 Carvedilol 3.125 Mg Tab PO Not Given BID CHAPARRITA Piperacillin Sod/Tazobactam 100 mls @ 200 mls/hr 04/23/20 16:00 04/28/20 15:40 Sod 2.25 gm/ Sodium Chloride IVPB 100 mls 0400,1600 CHAPARRITA Administration Sodium Chloride 1,000 mls @ 50 mls/hr 04/27/20 16:00 04/28/20 15:40 Normal Saline 0.9% IV 1,000 mls .Q20H CHAPARRITA Administration Methylprednisolone Sodium Succinate 20 mg 04/25/20 21:00 04/28/20 09:56 Methylprednisolone Sod Succ 40 Mg Vial IVP 20 mg Q12HR CHAPARRITA Administration Pantoprazole Sodium 40 mg 04/24/20 09:00 04/28/20 09:57 Pantoprazole 40 Mg Vial IVP 40 mg DAILY CHAPARRITA Administration - Exam General Appearance: awake alert Eye: anicteric sclera Heart: irregular Respiratory: CTAB Gastrointestinal: soft, non-tender Psychiatric: normal affect Hosp A/P - Plan Hosp A/P (1) SWETHA (acute kidney injury) Code(s): N17.9 - ACUTE KIDNEY FAILURE, UNSPECIFIED Status: Acute (2) SOB (shortness of breath) Code(s): R06.02 - SHORTNESS OF BREATH Status: Acute (3) Pulmonary hypertension Code(s): I27.20 - PULMONARY HYPERTENSION, UNSPECIFIED Status: Chronic (4) Quadriplegia Code(s): G82.50 - QUADRIPLEGIA, UNSPECIFIED Status: Chronic (5) Pancreatic mass Status: Acute (6) Atrial fibrillation Code(s): I48.91 - UNSPECIFIED ATRIAL FIBRILLATION Status: Chronic Qualifiers: Atrial fibrillation type: paroxysmal Qualified Code(s): I48.0 - Paroxysmal atrial fibrillation (7) Chronic diastolic (congestive) heart failure Code(s): I50.32 - CHRONIC DIASTOLIC (CONGESTIVE) HEART FAILURE Status: Acute (8) Pleural effusion Code(s): J90 - PLEURAL EFFUSION, NOT ELSEWHERE CLASSIFIED Status: Acute (9) Acute metabolic encephalopathy Code(s): G93.41 - METABOLIC ENCEPHALOPATHY Status: Acute - Plan Patient is a 69-year-old male with a history of quadriplegia with a trach and chronic daily ventilator support. Patient presented to the emergency department with worsening shortness of breath. In the emergency department the patient was initially found to be mildly hypotensive at 84/45 with a heart rate ranging from 70-110. He was felt to possibly have Covid pneumonia and was given Decadron and azithromycin in the emergency department. Chest x-ray confirmed bilateral pleural effusions and cardiomegaly. CT of the chest was not consistent with Covid pneumonia but did reveal pleural effusions and a 3.8 cm mass in the tail of the pancreas. Acute kidney injury: Stabilizing, nephrology following. Shortness of breath, acute on chronic hypoxic respiratory failure: Patient has a history of severe pulmonary hypertension. Patient also has a history of mucous plugging. Combination of the severe pulmonary hypertension along with the mucous plugging is the likely source of his acute on chronic respiratory failure with hypoxia. Pancreatic mass: Patient has a new finding of a 3.8 cm mass in the tail of the pancreas concerning for possible malignancy. Patient needs dedicated imaging, however his renal function precludes any contrast at this time. Chronic congestive heart failure: Not entirely clear if this is systolic or diastolic. Appeared to have preserved ejection fraction on his last echo in 2012. Diastolic function could not be fully assessed because of his atrial fibrillation. Atrial fibrillation: continue Eliquis. Acute metabolic encephalopathy: Improved
[2020-04-28] MEDS ORDERED: Albumin 25% 25 GM/100 ML BOT IVPB SCH (18:00)
--- NOTE | 2020-04-28 18:59 | PRG ---
DATE OF SERVICE: 04/28/2020 SUBJECTIVE: Patient is seen and examined at bedside. No nausea or vomiting. No chest pain. OBJECTIVE: General: This is a well-built male, in no apparent distress. Vital Signs: Temperature 97, pulse 111, respirations 18, blood pressure 112/71. HEENT: Atraumatic, normocephalic. Neck: Supple. Cardiovascular: S1, S2 heard. Respiratory: Equal breath sounds. Gastrointestinal: Abdomen is soft. Musculoskeletal: No tenderness. No edema. Dermatologic: No skin rash. Neurologic: Awake. Psychiatric: Mood and affect normal. LABORATORY DATA: Potassium 4.1, BUN of 60, creatinine is 3.08. ASSESSMENT AND PLAN: 1. Acute kidney injury on chronic kidney disease, stage 3. Labs are stable. Urine output might be improving. Monitor urine output. Continue supportive care. 2. Cardiorenal syndrome. 3. Chronic hypoxic respiratory failure. 4. Severe pulmonary hypertension. 5. Acidosis. 6. Altered mentation. 7. Obesity. Overall, labs are stable. We will monitor. Monitor urine output. Job ID: [id number]
[2020-04-28] MEDS: Atorvastatin Calcium 20 MG TAB PO SCH (20:09)
[2020-04-29 03:51] LABS: INR-International Normal Ratio 1.6; Prothrombin Time 19.3 sec (12.0-14.7)
[2020-04-29 03:54] LABS: #Lymphocytes 0.9 thou/uL (1.20-3.40); #Monocytes 0.6 thou/uL (0.11-0.59); %Eosinophils 0.2 % (0.0-10.0); %Monocytes 5.9 % (0.0-10.0); %Neutrophils 84.9 % (42.0-75.0); Hemoglobin 15.7 g/dL (14.0-18.0); Mean Corpuscular HGB CONC 32.1 g/dL (32.0-36.0); Mean Corpuscular Hemoglobin 30.5 pg (27.0-31.0); Mean Corpuscular Volume 95.1 fL (78.0-98.0); Mean Platelet Volume 11.6 fL (7.4-10.4); Platelet Count 81 thou/uL (130-400); RBC Distribution Width 15.9 % (11.5-14.5); Red Blood Cell (RBC) Count 5.14 mill/uL (4.70-6.10); White Blood Cell (WBC) Count 9.4 thou/uL (4.8-10.8)
[2020-04-29 04:05] LABS: Anion Gap 14 mmol/L (10-20); BUN (Urea Nitrogen) 65 mg/dL (8.4-25.7); Calc. Creatinine Clearance 40 mL/min (70-130); Calcium 7.7 mg/dL (7.8-10.44); Carbon Dioxide 25 mmol/L (23-31); Chloride 103 mmol/L (98-107); Glucose 144 mg/dL (80-115); Sodium 138 mmol/L (136-145)
[2020-04-29] MEDS: Piperacillin/Tazobactam 2.25 GM in Sodium Chloride 0.9% 100 ML IVPB SCH ×2 (04:28→16:19)
[2020-04-29] MEDS ORDERED: Aspirin Chewable 81 MG TAB ONE (08:10)
[2020-04-29] MEDS ORDERED: Carvedilol 3.125 MG TAB ONE ×2 (08:10→20:59)
--- NOTE | 2020-04-29 09:06 | RAD ---
PORTABLE CHEST: 04/29/20 PROVIDED CLINICAL HISTORY: Pneumonia. COMPARISON: 04/28/2020 FINDINGS: Opacification of the entire right hemithorax with shift of the mediastinal contents rightward redemon strated, suggesting a component of lobar atelectasis. Tracheostomy appliance is again seen. No eviden ce for pneumothorax. Left basilar pleural parenchymal opacity appears similar. IMPRESSION: Similar radiographic appearance of the chest. POS: CAROLE
[2020-04-29] MEDS: Apixaban 2.5 MG TAB PO SCH ×2 (09:31→21:35)
[2020-04-29] MEDS: Aspirin Chewable 81 MG TAB PO SCH (09:31)
[2020-04-29] MEDS: Pantoprazole 40 MG VIAL IVP SCH (09:31)
[2020-04-29] MEDS: methylPREDNISolone Sod Succ 40 MG VIAL IVP SCH ×2 (09:31→21:35)
[2020-04-29] MEDS: Carvedilol 3.125 MG TAB PO SCH ×2 (09:31→21:35)
[2020-04-29] MEDS ORDERED: Mineral Oil ENEMA PR SCH (10:45)
--- NOTE | 2020-04-29 14:57 | PDOC.HOSPP ---
- Subjective Encounter Date: 04/29/20 Encounter Time: 10:00 Subjective: Patient seen for follow-up regarding acute renal failure. He reports constipation. - Objective Vital Signs & Weight: Vital Signs (12 hours) Temp Pulse Resp BP Pulse Ox 04/29/20 10:35 107 H 22 H 95 04/29/20 10:12 97.2 F L 04/29/20 09:00 95 04/29/20 08:14 97.0 F L 97 04/29/20 08:00 23 H 04/29/20 06:46 102 H 99/74 04/29/20 06:00 24 H 04/29/20 04:00 97.6 F 28 H 04/29/20 03:44 102 H Weight Admit Weight 265 lb 14.04 oz Weight 265 lb 14.04 oz Most Recent Monitor Data Heart Rate from ECG 110 NIBP 132/92 NIBP BP-Mean 105 Respiration from ECG 24 SpO2 94 I&O: 04/28/20 04/29/20 04/30/20 06:59 06:59 06:59 Intake Total 2272.4 1351 1010 Output Total 302 498 216 Balance 1970.4 853 794 Result Diagrams: 04/29/20 03:35 04/29/20 03:35 Additional Labs: Labs and MAR reviewed by in Hospitalist ROS - Review of Systems Cardiovascular: denies: chest pain, palpitations, orthopnea, paroxysmal noc. dyspnea, edema, light headedness Gastrointestinal: reports: constipation. denies: nausea, vomiting, abdominal pain, diarrhea, melena, hematochezia - Medication Medications: Active Medications Generic Name Dose Route Start Last Admin Trade Name Raulq PRN Reason Stop Dose Admin Albuterol/Ipratropium 3 ml 04/28/20 18:30 04/29/20 10:35 Ipratropium/Albuterol Sulfate 3 Ml Neb NEB 3 ml [id number] CHAPARRITA Administration Apixaban 2.5 mg 04/27/20 09:00 04/29/20 09:31 Apixaban 2.5 Mg Tab PO 2.5 mg BID CHAPARRITA Administration Aspirin 81 mg 04/23/20 09:00 04/29/20 09:31 Aspirin Chewable 81 Mg Tab PO 81 mg DAILY CHAPARRITA Administration Atorvastatin Calcium 20 mg 04/22/20 21:00 04/28/20 20:09 Atorvastatin Calcium 20 Mg Tab PO 20 mg HS CHAPARRITA Administration Carvedilol 3.125 mg 04/22/20 21:00 04/29/20 09:31 Carvedilol 3.125 Mg Tab PO 3.125 mg BID CHAPARRITA Administration Piperacillin Sod/Tazobactam 100 mls @ 200 mls/hr 04/23/20 16:00 04/29/20 04:28 Sod 2.25 gm/ Sodium Chloride IVPB 100 mls 0400,1600 CHAPARRITA Administration Sodium Chloride 1,000 mls @ 50 mls/hr 04/27/20 16:00 04/28/20 15:40 Normal Saline 0.9% IV 1,000 mls .Q20H CHAPARRITA Administration Methylprednisolone Sodium Succinate 20 mg 04/25/20 21:00 04/29/20 09:31 Methylprednisolone Sod Succ 40 Mg Vial IVP 20 mg Q12HR CHAPARRITA Administration Pantoprazole Sodium 40 mg 04/24/20 09:00 04/29/20 09:31 Pantoprazole 40 Mg Vial IVP 40 mg DAILY CHAPARRITA Administration - Exam General Appearance: awake alert ENT: moist mucosa ENT - other findings: Tracheostomy Neck: supple Heart: RRR Respiratory: CTAB Gastrointestinal: soft, non-tender Skin: no rashes Psychiatric: normal affect, normal behavior Hosp A/P - Plan Hosp A/P (1) SWETHA (acute kidney injury) Code(s): N17.9 - ACUTE KIDNEY FAILURE, UNSPECIFIED Status: Acute (2) SOB (shortness of breath) Code(s): R06.02 - SHORTNESS OF BREATH Status: Acute (3) Pulmonary hypertension Code(s): I27.20 - PULMONARY HYPERTENSION, UNSPECIFIED Status: Chronic (4) Quadriplegia Code(s): G82.50 - QUADRIPLEGIA, UNSPECIFIED Status: Chronic (5) Pancreatic mass Status: Acute (6) Atrial fibrillation Code(s): I48.91 - UNSPECIFIED ATRIAL FIBRILLATION Status: Chronic Qualifiers: Atrial fibrillation type: paroxysmal Qualified Code(s): I48.0 - Paroxysmal atrial fibrillation (7) Chronic diastolic (congestive) heart failure Code(s): I50.32 - CHRONIC DIASTOLIC (CONGESTIVE) HEART FAILURE Status: Acute (8) Pleural effusion Code(s): J90 - PLEURAL EFFUSION, NOT ELSEWHERE CLASSIFIED Status: Acute (9) Acute metabolic encephalopathy Code(s): G93.41 - METABOLIC ENCEPHALOPATHY Status: Acute - Plan Patient is a 69-year-old male with a history of quadriplegia with a trach and chronic daily ventilator support. Patient presented to the emergency department with worsening shortness of breath. In the emergency department the patient was initially found to be mildly hypotensive at 84/45 with a heart rate ranging from 70-110. He was felt to possibly have Covid pneumonia and was given Decadron and azithromycin in the emergency department. Chest x-ray confirmed bilateral pleural effusions and cardiomegaly. CT of the chest was not consistent with Covid pneumonia but did reveal pleural effusions and a 3.8 cm mass in the tail of the pancreas. Acute kidney injury: Mild improvement in creatinine to 2.96 today. Shortness of breath, acute on chronic hypoxic respiratory failure: Secondary to pulmonary hypertension and mucous plugging. Pancreatic mass: Patient has a new finding of a 3.8 cm mass in the tail of the pancreas concerning for possible malignancy. Patient needs dedicated imaging, however his renal function precludes any c ontrast at this time. Chronic congestive heart failure: Not entirely clear if this is systolic or diastolic. Appeared to have preserved ejection fraction on his last echo in 2012. Diastolic function could not be fully assessed because of his atrial fibrillation. Atrial fibrillation: Patient is on Eliquis. Acute metabolic encephalopathy: Improved
--- NOTE | 2020-04-29 15:06 | PRG ---
DATE OF SERVICE: 04/29/2020 SUBJECTIVE: The patient was seen and examined at bedside. No nausea or vomiting. No shortness of breath. OBJECTIVE: GENERAL: This is a well-built male, in no apparent distress. VITAL SIGNS: Temperature 97.3, pulse 107, respirations 22, blood pressure 102/86. HEENT: Atraumatic, normocephalic. CVS: S1 and S2. RESPIRATORY: Coarse breath sounds. MUSCULOSKELETAL: 1+ edema. NEUROLOGIC: Awake. LABORATORY DATA: Potassium 4.0, BUN is 65, and creatinine is 2.9. ASSESSMENT AND PLAN: 1. Acute kidney injury on chronic kidney disease, stage 3. Labs are stable. 2. Cardiorenal syndrome. 3. Chronic hypoxic respiratory failure. 4. Severe pulmonary hypertension. 5. Acidosis. 6. Altered mentation. 7. Obesity. Overall, labs are better. Continue gentle hydration if tolerated with close monitoring of the respiratory status. We will follow. Job ID: [id number]
[2020-04-29] MEDS: Sodium Chloride 0.9% 1,000 ML IV SCH (16:20)
--- NOTE | 2020-04-29 16:57 | PRG ---
DATE OF SERVICE: 04/29/2020 OBJECTIVE: VITAL SIGNS: Mr. Lam is heart rate is 108 blood pressure 132/92, respiratory rate is in the 20s. GENERAL: He says he is comfortable. LUNGS: Clear. HEART: Regular rhythm. ABDOMEN: Soft. LABORATORY DATA: White count 9.4, hemoglobin 15.7, platelets 81,000. Electrolytes are unchanged. BUN 65, creatinine 2.96, down from 3.02. IMPRESSION: Chronic respiratory failure with tracheostomy. His home ventilator apparently is malfunctioning according to the . We will continue to ventilate him at night using our equipment, but he should do well with a simpler device. Continue supportive care. Job ID: [id number]
[2020-04-29] MEDS ORDERED: Furosemide 20 MG/2 ML VIAL ONE (18:25)
[2020-04-29] MEDS ORDERED: Furosemide 20 MG/2 ML VIAL SLOW IVP SCH ×2 (18:45)
[2020-04-29] MEDS ORDERED: Atorvastatin Calcium 40 MG TAB ONE (20:59)
[2020-04-29] MEDS ORDERED: Albumin 25% 25 GM/100 ML BOT IVPB SCH (21:00)
[2020-04-29] MEDS ORDERED: Atorvastatin Calcium 20 MG TAB ONE (21:01)
[2020-04-29] MEDS: Atorvastatin Calcium 20 MG TAB PO SCH (21:35)
[2020-04-30] MEDS ORDERED: Sodium Chloride 0.9% 10 ML ONE ×4 (03:48→16:38)
[2020-04-30] MEDS: Sodium Chloride 0.9% 1,000 ML IV SCH (04:19)
[2020-04-30] MEDS: Piperacillin/Tazobactam 2.25 GM in Sodium Chloride 0.9% 100 ML IVPB SCH (04:19)
[2020-04-30 07:47] LABS: INR-International Normal Ratio 1.5; Prothrombin Time 18.6 sec (12.0-14.7)
[2020-04-30 08:02] LABS: #Lymphocytes 0.6 thou/uL (1.20-3.40); #Monocytes 0.4 thou/uL (0.11-0.59); %Eosinophils 0.1 % (0.0-10.0); %Lymphocytes 6.6 % (21.0-51.0); %Monocytes 4.8 % (0.0-10.0); %Neutrophils 88.5 % (42.0-75.0); Hemoglobin 15.3 g/dL (14.0-18.0); Mean Corpuscular HGB CONC 31.8 g/dL (32.0-36.0); Mean Corpuscular Volume 94.4 fL (78.0-98.0); Mean Platelet Volume 11.4 fL (7.4-10.4); Platelet Count 79 thou/uL (130-400); RBC Distribution Width 15.8 % (11.5-14.5); Red Blood Cell (RBC) Count 5.09 mill/uL (4.70-6.10)
[2020-04-30] MEDS: Carvedilol 3.125 MG TAB PO SCH ×2 (09:04→20:14)
[2020-04-30] MEDS: Apixaban 2.5 MG TAB PO SCH ×2 (09:04→20:14)
[2020-04-30] MEDS: Aspirin Chewable 81 MG TAB PO SCH (09:04)
[2020-04-30] MEDS: Pantoprazole 40 MG VIAL IVP SCH (09:18)
[2020-04-30] MEDS: methylPREDNISolone Sod Succ 40 MG VIAL IVP SCH (09:18)
[2020-04-30 09:21] LABS: Anion Gap 21 mmol/L (10-20); BUN (Urea Nitrogen) 68 mg/dL (8.4-25.7); Calc. Creatinine Clearance 39 mL/min (70-130); Calcium 7.6 mg/dL (7.8-10.44); Carbon Dioxide 13 mmol/L (23-31); Chloride 108 mmol/L (98-107); Glucose 129 mg/dL (80-115); Sodium 136 mmol/L (136-145)
--- NOTE | 2020-04-30 09:28 | RAD ---
CHEST 1 VIEW PORTABLE: HISTORY: Followup pneumonia. COMPARISON: 04/29/2020. FINDINGS: Again noted is total abnormal opacification of the right hemithorax with what appears to be some righ t-sided volume loss, evidence for some underlying atelectasis. Left-sided congestion and pleural eff usions and possible lower lobe parenchymal change. The overall appearance is little changed. Trache ostomy tube in place. IMPRESSION: Overall stable exam. POS: OFF
[2020-04-30] MEDS ORDERED: Sodium Chloride For Inhalation 0.9% 3 ML NEB ONE (11:17)
[2020-04-30] MEDS ORDERED: Sodium Bicarb 50 MEQ/50 ML Abboject 8.4% SYRINGE ONE (11:40)
[2020-04-30] MEDS ORDERED: Sodium Bicarb 50 MEQ/50 ML Abboject 8.4% SYRINGE IVP SCH (12:15)
[2020-04-30] MEDS ORDERED: Sodium Bicarbonate 100 MEQ in Dextrose 5% in Water 1,000 ML IV SCH (13:15)
--- NOTE | 2020-04-30 13:49 | PRG ---
DATE OF SERVICE: 04/30/2020 SUBJECTIVE: Mr. Lam is about at his baseline. His x-ray did show pretty significant right-sided mucus plug today, which was removed by bronchoscopy. OBJECTIVE: GENERAL: He is currently on a trach collar. He is able to verbalize. VITAL SIGNS: His temperature 97.5, O2 saturation running in the high 80s to low 90s, blood pressure 102/76. HEENT: Unremarkable. NECK: No adenopathy or JVD. Trach in good position. LUNGS: Diminished breath sounds on the right compared to left. CARDIAC: S1 and S2. Regular. ABDOMEN: Soft. EXTREMITIES: No edema. LABORATORY DATA: White blood cell count 9, hematocrit 48, platelet count 79. INR 1.5. Sodium 136, potassium 6, chloride 108, CO2 of 30, BUN 68, creatinine 3.0, and glucose 129. ASSESSMENT: 1. Acute renal failure. 2. Hyperkalemia. 3. Acute hypoxic respiratory failure requiring mechanical ventilation on top of chronic respiratory failure. PLAN: I will go ahead and stop his piperacillin/tazobactam because of his kidney situation. This may help with thrombocytopenia also. I will also stop his steroids. He underwent bronchoscopy with successful removal of mucus plugging. Nephrology has put him on bicarbonate for his metabolic acidosis. Job ID: [id number]
--- NOTE | 2020-04-30 14:15 | OP ---
DATE OF PROCEDURE: 04/30/2020 PROCEDURE PERFORMED: Bronchoscopy. INDICATION: The patient has an opaque right hemithorax. POSTOPERATIVE DIAGNOSIS: Right mainstem bronchus mucus plug. ANESTHESIA: None. DESCRIPTION OF PROCEDURE: Using an Ambu 2.2 bronchoscope, the scope was placed down the patient's tracheostomy tube. A large mucus plug was located in right mainstem bronchus. This was lavaged with normal saline and aspirated. airways were clear. He tolerated the procedure well. Job ID: [id number]
[2020-04-30 14:55] LABS: Anion Gap 17 mmol/L (10-20); BUN (Urea Nitrogen) 70 mg/dL (8.4-25.7); Calc. Creatinine Clearance 39 mL/min (70-130); Calcium 7.6 mg/dL (7.8-10.44); Carbon Dioxide 22 mmol/L (23-31); Chloride 108 mmol/L (98-107); Glucose 154 mg/dL (80-115); Potassium 4.5 mmol/L (3.5-5.1); Sodium 142 mmol/L (136-145)
--- NOTE | 2020-04-30 17:45 | PDOC.HOSPP ---
- Subjective Encounter Date: 04/30/20 Encounter Time: 07:30 Subjective: Patient seen in follow-up for acute kidney injury. Denies nausea or vomiting. - Objective Vital Signs & Weight: Vital Signs (12 hours) Temp Pulse Resp Pulse Ox 04/30/20 16:51 97.9 F 04/30/20 15:50 97.9 F 04/30/20 14:43 97.5 F L 04/30/20 14:10 88 28 H 98 04/30/20 13:55 97.5 F L 04/30/20 13:00 97.5 F L 04/30/20 11:59 97.5 F L 92 L 04/30/20 11:00 97.7 F 04/30/20 10:28 104 H 24 H 98 04/30/20 10:00 97.7 F 04/30/20 09:00 96.8 F L 04/30/20 08:00 96.8 F L 93 L 04/30/20 07:48 96 04/30/20 07:35 109 H 28 H 95 04/30/20 05:51 20 Weight Admit Weight 265 lb 14.04 oz Weight 265 lb 14.04 oz Most Recent Monitor Data Heart Rate from ECG 102 NIBP 102/73 NIBP BP-Mean 82 Respiration from ECG 21 SpO2 91 I&O: 04/29/20 04/30/20 05/01/20 06:59 06:59 06:59 Intake Total 1351 2190 44487 Output Total 498 589 244 Balance 853 1601 74934 Result Diagrams: 04/30/20 07:24 04/30/20 14:22 Additional Labs: I reviewed patient's labs and [facility] Hospitalist ROS - Review of Systems Gastrointestinal: denies: nausea, vomiting, abdominal pain, diarrhea, constipation, melena, hematochezia Genitourinary: denies: dysuria, frequency, incontinence, hematuria, retention - Medication Medications: Active Medications Generic Name Dose Route Start Last Admin Trade Name Freq PRN Reason Stop Dose Admin Albuterol/Ipratropium 3 ml 04/28/20 18:30 04/30/20 14:10 Ipratropium/Albuterol Sulfate 3 Ml Neb NEB 3 ml [id number] CHAPARRITA Administration Apixaban 2.5 mg 04/27/20 09:00 04/30/20 09:04 Apixaban 2.5 Mg Tab PO 2.5 mg BID CHAPARRITA Administration Aspirin 81 mg 04/23/20 09:00 04/30/20 09:04 Aspirin Chewable 81 Mg Tab PO 81 mg DAILY CHAPARRITA Administration Atorvastatin Calcium 20 mg 04/22/20 21:00 04/29/20 21:35 Atorvastatin Calcium 20 Mg Tab PO 20 mg HS CHAPARRITA Administration Carvedilol 3.125 mg 04/22/20 21:00 04/30/20 09:04 Carvedilol 3.125 Mg Tab PO 3.125 mg BID CHAPARRITA Administration Pantoprazole Sodium 40 mg 04/24/20 09:00 04/30/20 09:18 Pantoprazole 40 Mg Vial IVP 40 mg DAILY CHAPARRITA Administration - Exam General Appearance: awake alert Eye: anicteric sclera ENT: normocephalic atraumatic ENT - other findings: Tracheostomy Neck: no thyromegaly Heart: RRR Respiratory: CTAB Gastrointestinal: soft Skin: no rashes Psychiatric: normal affect Hosp A/P - Plan Hosp A/P (1) SWETHA (acute kidney injury) Code(s): N17.9 - ACUTE KIDNEY FAILURE, UNSPECIFIED Status: Acute (2) SOB (shortness of breath) Code(s): R06.02 - SHORTNESS OF BREATH Status: Acute (3) Pulmonary hypertension Code(s): I27.20 - PULMONARY HYPERTENSION, UNSPECIFIED Status: Chronic (4) Quadriplegia Code(s): G82.50 - QUADRIPLEGIA, UNSPECIFIED Status: Chronic (5) Pancreatic mass Status: Acute (6) Atrial fibrillation Code(s): I48.91 - UNSPECIFIED ATRIAL FIBRILLATION Status: Chronic Qualifiers: Atrial fibrillation type: paroxysmal Qualified Code(s): I48.0 - Paroxysmal atrial fibrillation (7) Chronic diastolic (congestive) heart failure Code(s): I50.32 - CHRONIC DIASTOLIC (CONGESTIVE) HEART FAILURE Status: Acute (8) Pleural effusion Code(s): J90 - PLEURAL EFFUSION, NOT ELSEWHERE CLASSIFIED Status: Acute (9) Acute metabolic encephalopathy Code(s): G93.41 - METABOLIC ENCEPHALOPATHY Status: Acute - Plan Patient is a 69-year-old male with a history of quadriplegia with a trach and chronic daily ventilator support. Patient presented to the emergency department with worsening shortness of breath. In the emergency department the patient was initially found to be mildly hypotensive at 84/45 with a heart rate ranging from 70-110. He was felt to possibly have Covid pneumonia and was given Decadron and azithromycin in the emergency department. Chest x-ray confirmed bilateral pleural effusions and cardiomegaly. CT of the chest was not consistent with Covid pneumonia but did reveal pleural effusions and a 3.8 cm mass in the tail of the pancreas. Acute kidney injury: Stabilizing, creatinine is 2.98 today. Shortness of breath, acute on chronic hypoxic respiratory failure: Secondary to pulmonary hypertension and mucous plugging. Patient had bronchoscopy today with extraction of mucous plug. Pancreatic mass: Patient has a new finding of a 3.8 cm mass in the tail of the pancreas concerning for possible malignancy. Patient needs dedicated imaging, however his renal function precludes any contrast at this time. Chronic congestive heart failure: Stable Atrial fibrillation: Patient is on Eliquis. Acute metabolic encephalopathy: Improved Patient had pseudohyperkalemia. Repeat potassium check was normal without any intervention.
[2020-04-30] MEDS ORDERED: Acetaminophen 325 MG TAB ONE (18:10)
[2020-04-30] MEDS: Acetaminophen 325 MG TAB PO PRN (18:24)
--- NOTE | 2020-04-30 19:08 | PRG ---
DATE OF SERVICE: 04/30/2020 SUBJECTIVE: A 69-year-old gentleman, being seen for acute kidney injury. OBJECTIVE: GENERAL: The patient is awake and alert. VITAL SIGNS: Afebrile, pulse 75, breathing 16, blood pressure 102/70. HEENT: Head normocephalic and atraumatic. Eyes intact, no ulcers. Nose intact, no ulcers. Ears intact, no ulcers. NECK: Supple. No JVD. CHEST: Symmetrical and clear. CARDIOVASCULAR: Shows S1 and S2, no rub, no murmur. GASTROINTESTINAL: Abdomen is soft, bowel sounds positive. EXTREMITIES: Show no edema or ulcers. SKIN: Shows no rash or petechiae. MUSCULOSKELETAL: Shows no joint swelling or stiffness. GENITOURINARY: Shows no Garcia or CVA tenderness. NEUROLOGIC: Motor intact. Cranial nerves intact. LABORATORY DATA: , potassium 4.5. ASSESSMENT AND PLAN: 1. Acute kidney injury on chronic kidney disease, improved. 2. Hypertension, stable. 3. Anemia, stable. 4. Medication based on GFR, appropriate. 5. Hyperkalemia, improved. 6. Metabolic acidosis, improved. Job ID: [id number]
[2020-04-30] MEDS: Atorvastatin Calcium 20 MG TAB PO SCH (20:14)
[2020-04-30] MEDS ORDERED: Sodium Chloride 0.9% 20 ML ONE (23:24)
[2020-05-01] MEDS ORDERED: Sodium Chloride 0.9% 20 ML ONE (06:20)
[2020-05-01 06:50] LABS: #Lymphocytes 1.3 thou/uL (1.20-3.40); #Neutrophils 8.5 thou/uL (1.40-6.50); %Basophils 0.1 % (0.0-1.0); %Eosinophils 0.3 % (0.0-10.0); %Lymphocytes 11.7 % (21.0-51.0); %Neutrophils 78.9 % (42.0-75.0); Hemoglobin 15.2 g/dL (14.0-18.0); Mean Corpuscular HGB CONC 32.3 g/dL (32.0-36.0); Mean Corpuscular Hemoglobin 30.6 pg (27.0-31.0); Mean Corpuscular Volume 94.9 fL (78.0-98.0); Mean Platelet Volume 11.3 fL (7.4-10.4); Platelet Count 82 thou/uL (130-400); RBC Distribution Width 15.8 % (11.5-14.5); Red Blood Cell (RBC) Count 4.96 mill/uL (4.70-6.10); White Blood Cell (WBC) Count 10.8 thou/uL (4.8-10.8)
[2020-05-01 07:05] LABS: Anion Gap 12 mmol/L (10-20); BUN (Urea Nitrogen) 69 mg/dL (8.4-25.7); Calc. Creatinine Clearance 42 mL/min (70-130); Calcium 7.7 mg/dL (7.8-10.44); Carbon Dioxide 31 mmol/L (23-31); Chloride 101 mmol/L (98-107); Glucose 105 mg/dL (80-115); Potassium 3.8 mmol/L (3.5-5.1); Sodium 140 mmol/L (136-145)
--- NOTE | 2020-05-01 07:35 | RAD ---
Chest one view HISTORY: Pneumonia. Follow-up. COMPARISON: 04/30/2020. FINDINGS: A portion of the right upper lobe is now seen to contain air. Extensive pleural and parench ymal opacity at the right base persists. Mediastinum is shifted rightward with rotation and volume loss. Pleural and parenchymal opacity at the left base and pulmonary vascular congestion are stable. Tracheostomy appliance is in place. No evidence of pneumothorax. IMPRESSION : Slight improvement with partial aeration of the right upper lobe. Large right and moderate to large l eft pleural effusions remain.
[2020-05-01 07:56] LABS: MDiff Complete? YES; Platelet Morphology Comment Appears Decreased; Polychromasia SLIGHT = 2-3 cells (100X) (0-2/hpf); Target Cells SLIGHT = 2-5 cells (100X) (0-1/hpf)
[2020-05-01] MEDS ORDERED: Carvedilol 3.125 MG TAB ONE (08:37)
[2020-05-01] MEDS ORDERED: Aspirin Chewable 81 MG TAB ONE (08:38)
--- NOTE | 2020-05-01 09:37 | PRG ---
DATE OF SERVICE: 05/01/2020 SUBJECTIVE: The patient does not feel very well. Had no specific complaints. OBJECTIVE: VITAL SIGNS: His temperature is 98.4, pulse 97, blood pressure 110/86, O2 saturation 96%. HEENT: Unchanged. NECK: Trach clear. CARDIAC: S1 and S2. Regular. LUNGS: Clear. ABDOMEN: Soft. EXTREMITIES: Edematous. LABORATORY DATA: White blood cell count 10.8, hematocrit 47.1, and platelet count 82. INR yesterday was 1.5. Sodium 140, potassium 3.8, chloride 101, CO2 31, BUN 69, creatinine 2.7, and glucose 105. ASSESSMENT: 1. Quadriplegia. 2. Chronic respiratory failure. 3. Right lung atelectasis-better after bronchoscopy yesterday. 4. Hyperkalemia. 5. Acute renal failure. 6. Thrombocytopenia. PLAN: Yesterday, Zosyn was stopped. I have also stopped his IV fluids. He is getting near his baseline from respiratory status, but I think his kidney function is still concerning. Job ID: [id number]
[2020-05-01] MEDS: Apixaban 2.5 MG TAB PO SCH ×2 (09:50→21:12)
[2020-05-01] MEDS: Pantoprazole 40 MG VIAL IVP SCH (09:50)
[2020-05-01] MEDS: Aspirin Chewable 81 MG TAB PO SCH (09:50)
[2020-05-01] MEDS: Carvedilol 3.125 MG TAB PO SCH ×2 (09:50→21:11)
[2020-05-01] MEDS ORDERED: Sodium Chloride 0.9% 10 ML ONE ×2 (10:28→19:44)
--- NOTE | 2020-05-01 12:42 | PRG ---
DATE OF SERVICE: 05/01/2020 SUBJECTIVE: A 69-year-old gentleman, being seen for acute kidney injury. The patient is resting. PHYSICAL EXAMINATION: General: The patient is awake and alert. Vital Signs: Afebrile, pulse 75, breathing at , blood pressure 104/68. HEENT: Head normocephalic and atraumatic. Eyes intact, no ulcers. Nose intact, no ulcers. Ears intact, no ulcers. Neck: Supple. No JVD. Chest: Symmetrical and clear. Cardiovascular: Shows S1 and S2, no rub, no murmur. Gastrointestinal: Abdomen is soft, bowel sounds positive. Extremities: Show no edema or ulcers. Skin: Shows no rash or petechiae. Musculoskeletal: Shows no joint swelling or stiffness. Genitourinary: Shows no Garcia or CVA tenderness. Neurologic: Motor intact. Cranial nerves intact. LABORATORY DATA: Reviewed. ASSESSMENT AND PLAN: 1. Chronic kidney disease, stage 4, stable. 2. Hypertension, stable. 3. Acute kidney injury, stable. 4. Hyperkalemia, improved. 5. Metabolic acidosis, improved. 6. No indication for dialysis. Job ID: [id number]
--- NOTE | 2020-05-01 17:49 | PDOC.HOSPP ---
- Subjective Encounter Date: 05/01/20 Encounter Time: 14:30 Subjective: Patient seen for follow-up regarding acute renal failure. He denies chest pain or shortness of breath. - Objective Vital Signs & Weight: Vital Signs (12 hours) Pulse Resp Pulse Ox 05/01/20 15:03 94 28 H 94 L 05/01/20 10:59 108 H 28 H 100 05/01/20 07:37 103 H 20 96 05/01/20 07:36 96 05/01/20 06:00 21 H Weight Admit Weight 265 lb 14.04 oz Weight 282 lb 3.067 oz Most Recent Monitor Data Heart Rate from ECG 104 NIBP 107/86 NIBP BP-Mean 99 Respiration from ECG 20 SpO2 90 I&O: 04/30/20 05/01/20 05/02/20 06:59 06:59 06:59 Intake Total 2190 19761 480 Output Total 589 592 30 Balance 1601 00555 450 Result Diagrams: 05/01/20 06:17 05/01/20 06:17 Additional Labs: Labs and MAR reviewed by co Hospitalist ROS - Review of Systems Cardiovascular: denies: chest pain, palpitations, orthopnea, paroxysmal noc. dyspnea, edema, light headedness Gastrointestinal: denies: nausea, vomiting, abdominal pain, diarrhea, constipation, melena, hematochezia - Medication Medications: Active Medications Generic Name Dose Route Start Last Admin Trade Name Freq PRN Reason Stop Dose Admin Acetaminophen 650 mg 04/22/20 12:19 04/30/20 18:24 Acetaminophen 325 Mg Tab PO 650 mg Q4H PRN Administration Headache/Fever/Mild Pain (1-3) Albuterol/Ipratropium 3 ml 04/28/20 18:30 05/01/20 15:03 Ipratropium/Albuterol Sulfate 3 Ml Neb NEB 3 ml [id number] CHAPARRITA Administration Apixaban 2.5 mg 04/27/20 09:00 05/01/20 09:50 Apixaban 2.5 Mg Tab PO 2.5 mg BID CHAPARRITA Administration Aspirin 81 mg 04/23/20 09:00 05/01/20 09:50 Aspirin Chewable 81 Mg Tab PO 81 mg DAILY CHAPARRITA Administration Atorvastatin Calcium 20 mg 04/22/20 21:00 04/30/20 20:14 Atorvastatin Calcium 20 Mg Tab PO 20 mg HS CHAPARRITA Administration Carvedilol 3.125 mg 04/22/20 21:00 05/01/20 09:50 Carvedilol 3.125 Mg Tab PO 3.125 mg BID CHAPARRITA Administration Pantoprazole Sodium 40 mg 04/24/20 09:00 05/01/20 09:50 Pantoprazole 40 Mg Vial IVP 40 mg DAILY CHAPARRITA Administration Hospitalist Exam Vitals: Vital Signs (12 hours) Pulse Resp Pulse Ox 05/01/20 15:03 94 28 H 94 L 05/01/20 10:59 108 H 28 H 100 05/01/20 07:37 103 H 20 96 05/01/20 07:36 96 05/01/20 06:00 21 H Weight Admit Weight 265 lb 14.04 oz Weight 282 lb 3.067 oz Most Recent Monitor Data Heart Rate from ECG 104 NIBP 107/86 NIBP BP-Mean 99 Respiration from ECG 20 SpO2 90 General Appearance: awake alert ENT - other findings: Tracheostomy Heart: RRR Respiratory: CTAB Gastrointestinal: soft, non-tender, normal bowel sounds Skin: no rashes Neurological - other findings: Quadriplegia Psychiatric: normal affect Hosp A/P - Plan Hosp A/P (1) SWETHA (acute kidney injury) Code(s): N17.9 - ACUTE KIDNEY FAILURE, UNSPECIFIED Status: Acute (2) SOB (shortness of breath) Code(s): R06.02 - SHORTNESS OF BREATH Status: Acute (3) Pulmonary hypertension Code(s): I27.20 - PULMONARY HYPERTENSION, UNSPECIFIED Status: Chronic (4) Quadriplegia Code(s): G82.50 - QUADRIPLEGIA, UNSPECIFIED Status: Chronic (5) Pancreatic mass Status: Acute (6) Atrial fibrillation Code(s): I48.91 - UNSPECIFIED ATRIAL FIBRILLATION Status: Chronic Qualifiers: Atrial fibrillation type: paroxysmal Qualified Code(s): I48.0 - Paroxysmal atrial fibrillation (7) Chronic diastolic (congestive) heart failure Code(s): I50.32 - CHRONIC DIASTOLIC (CONGESTIVE) HEART FAILURE Status: Acute (8) Pleural effusion Code(s): J90 - PLEURAL EFFUSION, NOT ELSEWHERE CLASSIFIED Status: Acute (9) Acute metabolic encephalopathy Code(s): G93.41 - METABOLIC ENCEPHALOPATHY Status: Acute - Plan Patient is a 69-year-old male with a history of quadriplegia with a trach and chronic daily ventilator support. Patient presented to the emergency department with worsening shortness of breath. In the emergency department the patient was initially found to be mildly hypotensive at 84/45 with a heart rate ranging from 70-110. He was felt to possibly have Covid pneumonia and was given Decadron and azithromycin in the emergency department. Chest x-ray confirmed bilateral pleural effusions and cardiomegaly. CT of the chest was not consistent with Covid pneumonia but did reveal pleural effusions and a 3.8 cm mass in the tail of the pancreas. Acute kidney injury: Creatinine improved to 2.77 today. Shortness of breath, acute on chronic hypoxic respiratory failure: Secondary to pulmonary hypertension and mucous plugging. Patient had bronchoscopy yesterday with extraction of mucous plug. Clinically improving. Pancreatic mass: Patient has a new finding of a 3.8 cm mass in the tail of the pancreas concerning for possible malignancy. Patient needs dedicated imaging, however his renal function precludes any contrast at this time. Chronic congestive heart failure: Stable Atrial fibrillation: Continue Eliquis. Acute metabolic encephalopathy: Resolved
[2020-05-01] MEDS ORDERED: Sodium Chloride For Inhalation 0.9% 3 ML NEB ONE (19:52)
[2020-05-01] MEDS ORDERED: Sodium Chloride 0.9% 40 ML ONE (19:53)
[2020-05-01] MEDS ORDERED: Fleet Enema 133 ML BOT FS SCH (20:15)
[2020-05-01] MEDS: Atorvastatin Calcium 20 MG TAB PO SCH (21:11)
[2020-05-02 07:05] LABS: Anion Gap 17 mmol/L (10-20); BUN (Urea Nitrogen) 67 mg/dL (8.4-25.7); Calc. Creatinine Clearance 0 mL/min (70-130); Calcium 7.7 mg/dL (7.8-10.44); Carbon Dioxide 22 mmol/L (23-31); Chloride 104 mmol/L (98-107); Glucose 88 mg/dL (80-115); Sodium 139 mmol/L (136-145)
[2020-05-02] MEDS ORDERED: Albumin 5% 0 ML ONE (07:30)
--- NOTE | 2020-05-02 07:58 | PRG ---
DATE OF SERVICE: 05/02/2020 SUBJECTIVE: The patient remains on mechanical ventilation at night and on trach collar during the day. OBJECTIVE: VITAL SIGNS: Temperature 96.8, pulse 97, blood pressure 131/92, O2 saturation 97%. 24-hour intake 550, output 615. HEENT: Unremarkable. NECK: Trach in good position. LUNGS: Slightly diminished breath sounds on the right compared to left. CARDIAC: S1 and S2 regular. ABDOMEN: Soft. EXTREMITIES: Trace edema. LABORATORY DATA: Sodium 139, potassium 4, chloride 104, CO2 of 22, BUN 67, creatinine 2.6, glucose 88. ASSESSMENT: 1. Chronic respiratory failure secondary to quadriplegia. 2. Acute kidney injury, slowly improving. 3. Recent right lung atelectasis from mucus plugging. 4. Thrombocytopenia-today's CBC has not resulted yet. PLAN: He is actually nearing his baseline. Ultimately, he will go home on his home ventilator. We will continue to follow. Job ID: [id number]
--- NOTE | 2020-05-02 08:13 | RAD ---
Portable semiupright frontal chest radiograph: 05/02/2020 COMPARISON: 05/01/2020 HISTORY: Pneumonia FINDINGS: Body habitus and portable technique limits detailed assessment. There is dense opacity in b ilateral lung bases, right greater than left, suggesting nonspecific airspace disease, bilateral pleural effusions, and elevation of the right hemidiaphragm. Focal nonspecific right perihilar opacit y again noted. Stable tracheostomy tube. IMPRESSION: No significant interval change.
[2020-05-02] MEDS ORDERED: Aspirin Chewable 81 MG TAB ONE (09:44)
[2020-05-02] MEDS ORDERED: Carvedilol 3.125 MG TAB ONE ×2 (09:44→21:14)
[2020-05-02] MEDS: Docusate 100 MG CAP PO SCH (09:52)
[2020-05-02] MEDS: Aspirin Chewable 81 MG TAB PO SCH (09:52)
[2020-05-02] MEDS: Pantoprazole 40 MG VIAL IVP SCH (09:52)
[2020-05-02] MEDS: Carvedilol 3.125 MG TAB PO SCH ×2 (09:52→21:20)
[2020-05-02] MEDS: Apixaban 2.5 MG TAB PO SCH ×2 (09:53→21:21)
--- NOTE | 2020-05-02 10:01 | PRG ---
DATE OF SERVICE: 05/02/2020 SUBJECTIVE: A 69-year-old gentleman being seen for acute kidney injury. The patient denies any complaints. PHYSICAL EXAMINATION: GENERAL: The patient is resting. VITAL SIGNS: Pulse 97, breathing 16, blood pressure 131/92. HEENT: Head normocephalic and atraumatic. Eyes intact, no ulcers. Nose intact, no ulcers. Ears intact, no ulcers. Neck: Supple. No JVD. CHEST: Symmetrical and clear. CARDIOVASCULAR: Shows S1 and S2, no rub, no murmur. GASTROINTESTINAL: Abdomen is soft, bowel sounds positive. EXTREMITIES: Show no edema or ulcers. SKIN: Shows no rash or petechiae. MUSCULOSKELETAL: Shows no joint swelling or stiffness. GENITOURINARY: Shows no Garcia or CVA tenderness. NEUROLOGIC: Motor intact. Cranial nerves intact. LABORATORY DATA: Reviewed. ASSESSMENT AND PLAN: 1. Stage 4 chronic kidney disease, stable. 2. Hypertension. 3. Anemia, stable. 4. Medication based on GFR appropriate. 5. No indication for dialysis. Job ID: [id number]
[2020-05-02] MEDS ORDERED: Sodium Chloride 0.9% 20 ML ONE (12:01)
[2020-05-02 13:36] LABS: #Eosinphils 0.1 thou/uL (0.0-0.7); #Lymphocytes 1.4 thou/uL (1.20-3.40); %Eosinophils 1.1 % (0.0-10.0); %Lymphocytes 16.5 % (21.0-51.0); %Monocytes 11.4 % (0.0-10.0); Hemoglobin 15.6 g/dL (14.0-18.0); Mean Corpuscular HGB CONC 31.3 g/dL (32.0-36.0); Mean Corpuscular Volume 95.8 fL (78.0-98.0); Mean Platelet Volume 12.3 fL (7.4-10.4); Platelet Count 81 thou/uL (130-400); White Blood Cell (WBC) Count 8.4 thou/uL (4.8-10.8)
--- NOTE | 2020-05-02 18:31 | PDOC.HOSPP ---
- Subjective Encounter Date: 05/02/20 Encounter Time: 13:30 Subjective: Patient seen in follow-up for acute renal failure. He denies chest pain or shortness of breath. - Objective Vital Signs & Weight: Vital Signs (12 hours) Temp Pulse Resp Pulse Ox 05/02/20 16:00 97.6 F 05/02/20 15:08 104 H 23 H 95 05/02/20 11:25 101 H 95 05/02/20 08:00 18 98 05/02/20 07:00 97 F L 95 Weight Admit Weight 265 lb 14.04 oz Weight 287 lb 11.252 oz Most Recent Monitor Data Heart Rate from ECG 96 NIBP 119/80 NIBP BP-Mean 103 Respiration from ECG 24 SpO2 92 I&O: 05/01/20 05/02/20 05/03/20 06:59 06:59 06:59 Intake Total 09609 550 120 Output Total 592 615 310 Balance 27660 -65 -190 Result Diagrams: 05/02/20 06:36 05/02/20 06:36 Additional Labs: I reviewed patient's labs and MAR EKG Reviewed by me: Yes (Te guzman on telemetry) Hospitalist ROS - Review of Systems Cardiovascular: denies: chest pain, palpitations, orthopnea, paroxysmal noc. d yspnea, edema, light headedness Gastrointestinal: denies: nausea, vomiting, abdominal pain, diarrhea, constipation, melena, hematochezia - Medication Medications: Active Medications Generic Name Dose Route Start Last Admin Trade Name Freq PRN Reason Stop Dose Admin Acetaminophen 650 mg 04/22/20 12:19 04/30/20 18:24 Acetaminophen 325 Mg Tab PO 650 mg Q4H PRN Administration Headache/Fever/Mild Pain (1-3) Albuterol/Ipratropium 3 ml 04/28/20 18:30 05/02/20 15:08 Ipratropium/Albuterol Sulfate 3 Ml Neb NEB 3 ml [id number] CHAPARRITA Administration Apixaban 2.5 mg 04/27/20 09:00 05/02/20 09:53 Apixaban 2.5 Mg Tab PO 2.5 mg BID CHAPARRITA Administration Aspirin 81 mg 04/23/20 09:00 05/02/20 09:52 Aspirin Chewable 81 Mg Tab PO 81 mg DAILY CHAPARRITA Administration Atorvastatin Calcium 20 mg 04/22/20 21:00 05/01/20 21:11 Atorvastatin Calcium 20 Mg Tab PO 20 mg HS CHAPARRITA Administration Carvedilol 3.125 mg 04/22/20 21:00 05/02/20 09:52 Carvedilol 3.125 Mg Tab PO 3.125 mg BID CHAPARRITA Administration Docusate Sodium 100 mg 05/02/20 09:00 05/02/20 09:52 Docusate 100 Mg Cap PO 100 mg DAILY CHAPARRITA Administration Pantoprazole Sodium 40 mg 04/24/20 09:00 05/02/20 09:52 Pantoprazole 40 Mg Vial IVP 40 mg DAILY CHAPARRITA Administration Hospitalist Exam Vitals: Vital Signs (12 hours) Temp Pulse Resp Pulse Ox 05/02/20 16:00 97.6 F 05/02/20 15:08 104 H 23 H 95 05/02/20 11:25 101 H 95 05/02/20 08:00 18 98 05/02/20 07:00 97 F L 95 Weight Admit Weight 265 lb 14.04 oz Weight 287 lb 11.252 oz Most Recent Monitor Data Heart Rate from ECG 96 NIBP 119/80 NIBP BP-Mean 103 Respiration from ECG 24 SpO2 92 General - other findings: Quadriplegia ENT - other findings: Trach Heart: irregular Respiratory: rhonchi Skin: no rashes Psychiatric: normal affect Hosp A/P - Plan Hosp A/P (1) SWETHA (acute kidney injury) Code(s): N17.9 - ACUTE KIDNEY FAILURE, UNSPECIFIED Status: Acute (2) SOB (shortness of breath) Code(s): R06.02 - SHORTNESS OF BREATH Status: Acute (3) Pulmonary hypertension Code(s): I27.20 - PULMONARY HYPERTENSION, UNSPECIFIED Status: Chronic (4) Quadriplegia Code(s): G82.50 - QUADRIPLEGIA, UNSPECIFIED Status: Chronic (5) Pancreatic mass Status: Acute (6) Atrial fibrillation Code(s): I48.91 - UNSPECIFIED ATRIAL FIBRILLATION Status: Chronic Qualifiers: Atrial fibrillation type: paroxysmal Qualified Code(s): I48.0 - Paroxysmal atrial fibrillation (7) Chronic diastolic (congestive) heart failure Code(s): I50.32 - CHRONIC DIASTOLIC (CONGESTIVE) HEART FAILURE Status: Acute (8) Pleural effusion Code(s): J90 - PLEURAL EFFUSION, NOT ELSEWHERE CLASSIFIED Status: Acute (9) Acute metabolic encephalopathy Code(s): G93.41 - METABOLIC ENCEPHALOPATHY Status: Acute - Plan Patient is a 69-year-old male with a history of quadriplegia with a trach and ch ronic daily ventilator support. Patient presented to the emergency department with worsening shortness of breath. In the emergency department the patient was initially found to be mildly hypotensive at 84/45 with a heart rate ranging from 70-110. He was felt to possibly have Covid pneumonia and was given Decadron and azithromycin in the emergency department. Chest x-ray confirmed bilateral ple ural effusions and cardiomegaly. CT of the chest was not consistent with Covid pneumonia but did reveal pleural effusions and a 3.8 cm mass in the tail of the pancreas. Acute kidney injury: Creatinine improved to 2.67 today. Shortness of breath, acute on chronic hypoxic respiratory failure: Secondary to pulmonary hypertension and mucous plugging. Status post bronchoscopy with extraction of mucous plug. Clinically improving. Pancreatic mass: Patient has a new finding of a 3.8 cm mass in the tail of the pancreas con cerning for possible malignancy. I discussed with radiologist earlier today. He recommended repeating the CT scan in a few weeks time to evaluate for any increase in the size of the mass. This mass was not present on imaging done in 2013. MRI was considered. However, patient is too big to fit into the MRI tube. He can try to have MRI done as outpatient at [facility], since that MRI to will fit him, according to our MRI department. Chronic congestive heart failure: Stable Atrial fibrillation: Continue Eliquis. Acute metabolic encephalopathy: Resolved
[2020-05-02] MEDS ORDERED: Atorvastatin Calcium 20 MG TAB ONE (21:13)
[2020-05-02] MEDS: Atorvastatin Calcium 20 MG TAB PO SCH (21:20)
[2020-05-03 08:25] LABS: Anion Gap 16 mmol/L (10-20); BUN (Urea Nitrogen) 69 mg/dL (8.4-25.7); Calc. Creatinine Clearance 47 mL/min (70-130); Calcium 8.2 mg/dL (7.8-10.44); Carbon Dioxide 29 mmol/L (23-31); Chloride 102 mmol/L (98-107); Glucose 84 mg/dL (80-115); Potassium 3.7 mmol/L (3.5-5.1); Sodium 143 mmol/L (136-145)
--- NOTE | 2020-05-03 08:51 | RAD ---
Chest AP view INDICATION: Pneumonia COMPARISON: Prior exam dated May 02, 2020 FINDINGS: Lungs: Perihilar airspace disease, left greater than right persists. Cardiac silhouette: Moderate to prominent cardiomegaly is stable Pulmonary vasculature: Pulmonary vascular congestion persists Pleural spaces: Moderate right and small left pleural effusions are stable. Upper abdomen: No abnormality seen. Osseous structures: No acute osseous abnormality. Additional findings: Tracheostomy tube is unchanged. No pneumothorax is evident. IMPRESSION: Stable examination.
[2020-05-03] MEDS ORDERED: Carvedilol 6.25 MG TAB ONE ×2 (09:29→19:36)
[2020-05-03] MEDS ORDERED: Aspirin Chewable 81 MG TAB ONE (09:29)
[2020-05-03 09:30] LABS: #Eosinphils 0.1 thou/uL (0.0-0.7); #Lymphocytes 1.3 thou/uL (1.20-3.40); #Monocytes 0.8 thou/uL (0.11-0.59); #Neutrophils 5.8 thou/uL (1.40-6.50); %Basophils 0.1 % (0.0-1.0); %Eosinophils 0.8 % (0.0-10.0); %Lymphocytes 16.7 % (21.0-51.0); %Monocytes 9.9 % (0.0-10.0); %Neutrophils 72.5 % (42.0-75.0); Band 1 % (5-11); Eosinophils 1 % (0-10); Hemoglobin 15.4 g/dL (14.0-18.0); Lymphocytes 12 % (21-51); MDiff Complete? YES; Mean Corpuscular HGB CONC 31.3 g/dL (32.0-36.0); Mean Corpuscular Volume 95.7 fL (78.0-98.0); Mean Platelet Volume 11.9 fL (7.4-10.4); Monocytes 6 % (0-10); Neutrophil 74 % (42-75); Platelet Count 81 thou/uL (130-400); Platelet Morphology Comment Appears Decreased; Polychromasia SLIGHT = 2-3 cells (100X) (0-2/hpf); Reactive Lymphocytes 6 % (0-10); Red Blood Cell (RBC) Count 5.14 mill/uL (4.70-6.10); Schistocytes SLIGHT = 2-5 cells (100X) (0-1/hpf); Target Cells SLIGHT = 2-5 cells (100X) (0-1/hpf)
[2020-05-03] MEDS: Carvedilol 6.25 MG TAB PO SCH ×2 (09:34→20:04)
[2020-05-03] MEDS: Apixaban 2.5 MG TAB PO SCH ×2 (09:34→20:03)
[2020-05-03] MEDS: Aspirin Chewable 81 MG TAB PO SCH (09:34)
[2020-05-03] MEDS: Docusate 100 MG CAP PO SCH (09:34)
[2020-05-03] MEDS ORDERED: Sodium Chloride 0.9% 20 ML ONE ×2 (09:36→19:40)
[2020-05-03] MEDS: Pantoprazole 40 MG VIAL IVP SCH (09:38)
[2020-05-03] MEDS ORDERED: Sodium Chloride 0.9% 30 ML ONE (11:41)
--- NOTE | 2020-05-03 15:11 | PRG ---
DATE OF SERVICE: 05/03/2020 SUBJECTIVE: A 69-year-old gentleman being seen for acute kidney injury. PHYSICAL EXAMINATION: GENERAL: The patient is resting. VITAL SIGNS: Pulse 85, breathing 16, blood pressure 132/96. HEENT: Head normocephalic and atraumatic. Eyes intact, no ulcers. Nose intact, no ulcers. Ears intact, no ulcers. Neck: Supple. No JVD. Chest: Symmetrical and clear. Cardiovascular: Shows S1 and S2, no rub, no murmur. Gastrointestinal: Abdomen is soft, bowel sounds positive. Extremities: Show no edema or ulcers. Skin: Shows no rash or petechiae. Musculoskeletal: Shows no joint swelling or stiffness. Genitourinary: Shows no Garcia or CVA tenderness. Neurologic: Motor intact. Cranial nerves intact. LABORATORY DATA: Hemoglobin 15.4, creatinine 2.7. ASSESSMENT: 1. Chronic kidney disease, stage 4, stable. 2. Hypertension, stable. 3. Anemia, stable. No indication for dialysis. Hyperkalemia has resolved. Job ID: [id number]
--- NOTE | 2020-05-03 16:33 | PDOC.HOSPP ---
- Subjective Encounter Date: 05/03/20 Encounter Time: 10:00 Subjective: Patient seen for follow-up regarding acute renal failure. Reports feeling better. - Objective Vital Signs & Weight: Vital Signs (12 hours) Temp Pulse Resp BP Pulse Ox 05/03/20 16:00 98.1 F 24 H 05/03/20 15:09 106 H 24 H 92 L 05/03/20 14:00 97.2 F L 22 H 05/03/20 12:00 36.5 F L 22 H 05/03/20 11:20 110 H 23 H 96 05/03/20 10:00 96.8 F L 05/03/20 09:34 130/109 H 05/03/20 08:01 114 H 20 95 05/03/20 08:00 22 H 96 05/03/20 07:56 95 05/03/20 07:00 97.7 F 05/03/20 06:00 26 H Weight Admit Weight 265 lb 14.04 oz Weight 288 lb 12.889 oz Most Recent Monitor Data Heart Rate from ECG 111 NIBP 119/82 NIBP BP-Mean 94 Respiration from ECG 22 SpO2 97 I&O: 05/02/20 05/03/20 05/04/20 06:59 06:59 06:59 Intake Total 550 420 60 Output Total 615 645 290 Balance -65 -225 -230 Result Diagrams: 05/03/20 07:49 05/03/20 07:49 Additional Labs: Labs and MAR reviewed by me EKG Reviewed by me: Yes (Telemetry: A. fib) Hospitalist ROS - Review of Systems Cardiovascular: denies: chest pain, palpitations, orthopnea, paroxysmal noc. dyspnea, edema, light headedness Gastrointestinal: denies: nausea, vomiting, abdominal pain, diarrhea, constipation, melena, hematochezia - Medication Medications: Active Medications Generic Name Dose Route Start Last Admin Trade Name Freq PRN Reason Stop Dose Admin Acetaminophen 650 mg 04/22/20 12:19 04/30/20 18:24 Acetaminophen 325 Mg Tab PO 650 mg Q4H PRN Administration Headache/Fever/Mild Pain (1-3) Albuterol/Ipratropium 3 ml 04/28/20 18:30 05/03/20 15:09 Ipratropium/Albuterol Sulfate 3 Ml Neb NEB 3 ml [id number] CHAPARRITA Administration Apixaban 2.5 mg 04/27/20 09:00 05/03/20 09:34 Apixaban 2.5 Mg Tab PO 2.5 mg BID CHAPARRITA Administration Aspirin 81 mg 04/23/20 09:00 05/03/20 09:34 Aspirin Chewable 81 Mg Tab PO 81 mg DAILY CHAPARRITA Administration Atorvastatin Calcium 20 mg 04/22/20 21:00 05/02/20 21:20 Atorvastatin Calcium 20 Mg Tab PO 20 mg HS [facility] Administration Carvedilol 6.25 mg 05/03/20 09:00 05/03/20 09:34 Carvedilol 6.25 Mg Tab PO 6.25 mg BID [facility] Administration Docusate Sodium 100 mg 05/02/20 09:00 05/03/20 09:34 Docusate 100 Mg Cap PO 100 mg DAILY [facility] Administration Pantoprazole Sodium 40 mg 04/24/20 09:00 05/03/20 09:38 Pantoprazole 40 Mg Vial IVP 40 mg DAILY CHAPARRITA Administration Hospitalist Exam Vitals: Vital Signs (12 hours) Temp Pulse Resp BP Pulse Ox 05/03/20 16:00 98.1 F 24 H 05/03/20 15:09 106 H 24 H 92 L 05/03/20 14:00 97.2 F L 22 H 05/03/20 12:00 36.5 F L 22 H 05/03/20 11:20 110 H 23 H 96 05/03/20 10:00 96.8 F L 05/03/20 09:34 130/109 H 05/03/20 08:01 114 H 20 95 05/03/20 08:00 22 H 96 05/03/20 07:56 95 05/03/20 07:00 97.7 F 05/03/20 06:00 26 H Weight Admit Weight 265 lb 14.04 oz Weight 288 lb 12.889 oz Most Recent Monitor Data Heart Rate from ECG 111 NIBP 119/82 NIBP BP-Mean 94 Respiration from ECG 22 SpO2 97 General Appearance: awake alert General - other findings: Morbid obesity Eye: anicteric sclera ENT: normocephalic atraumatic ENT - other findings: Tracheostomy Neck: supple Heart: irregular Respiratory: CTAB Gastrointestinal: soft Extremities: no edema Skin: no rashes Neurological - other findings: Quadriplegia Psychiatric: normal affect Hosp A/P - Plan Hosp A/P (1) SWETHA (acute kidney injury) Code(s): N17.9 - ACUTE KIDNEY FAILURE, UNSPECIFIED Status: Acute (2) SOB (shortness of breath) Code(s): R06.02 - SHORTNESS OF BREATH Status: Acute (3) Pulmonary hypertension Code(s): I27.20 - PULMONARY HYPERTENSION, UNSPECIFIED Status: Chronic (4) Quadriplegia Code(s): G82.50 - QUADRIPLEGIA, UNSPECIFIED Status: Chronic (5) Pancreatic mass Status: Acute (6) Atrial fibrillation Code(s): I48.91 - UNSPECIFIED ATRIAL FIBRILLATION Status: Chronic Qualifiers: Atrial fibrillation type: paroxysmal Qualified Code(s): I48.0 - Paroxysmal atrial fibrillation (7) Chronic diastolic (congestive) heart failure Code(s): I50.32 - CHRONIC DIASTOLIC (CONGESTIVE) HEART FAILURE Status: Acute (8) Pleural effusion Code(s): J90 - PLEURAL EFFUSION, NOT ELSEWHERE CLASSIFIED Status: Acute (9) Acute metabolic encephalopathy Code(s): G93.41 - METABOLIC ENCEPHALOPATHY Status: Acute - Plan Patient is a 69-year-old male with a history of quadriplegia with a trach and chronic daily ventilator support. Patient presented to the emergency department with worsening shortness of breath. In the emergency department the patient was initially found to be mildly hypotensive at 84/45 with a heart rate ranging from 70-110. He was felt to possibly have Covid pneumonia and was given Decadron and azithromycin in the emergency department. Chest x-ray confirmed bilateral pleural effusions and cardiomegaly. CT of the chest was not consistent with Covid pneumonia but did reveal pleural effusions and a 3.8 cm mass in the tail of the pancreas. Acute kidney injury: Creatinine stabilized, nephrology following. Shortness of breath, acute on chronic hypoxic respiratory failure: Clinically improved. Pancreatic mass: Patient will need imaging as outpatient. Chronic congestive heart failure: Stable Atrial fibrillation: Continue Eliquis. Patient is tachycardic, increase Coreg to 6.25 mg twice daily. Acute metabolic encephalopathy: Resolved Monitor overnight, likely home in 24 to 48 hours.
[2020-05-03] MEDS ORDERED: Atorvastatin Calcium 20 MG TAB ONE (19:39)
[2020-05-03] MEDS: Atorvastatin Calcium 20 MG TAB PO SCH (20:03)
[2020-05-03] MEDS ORDERED: Acetaminophen 325 MG TAB ONE (21:39)
[2020-05-03] MEDS: Acetaminophen 325 MG TAB PO PRN (21:40)
[2020-05-03] MEDS ORDERED: Fleet Enema 133 ML BOT PR SCH (22:15)
[2020-05-04] MEDS ORDERED: Sodium Chloride 0.9% 10 ML ONE (01:05)
--- NOTE | 2020-05-04 06:30 | PRG ---
DATE OF SERVICE: 05/03/2020 Be Lam is in no distress. OBJECTIVE: VITAL SIGNS: Blood pressure has been stable 115/78, heart rate is 107, and respiratory rates in the high 20s. He continues to be nocturnally ventilated. LUNGS: Remarkable for equal breath sounds. HEART: Regular rhythm. ABDOMEN: Soft. EXTREMITIES: Without asymmetry. LABORATORY DATA: White count 8, hemoglobin 15.4, and platelets 81,000. Sodium 143, potassium 3.7, chloride 102, bicarb 29, BUN 69, and creatinine 2.7. IMPRESSION AND PLAN: Respiratory failure with tracheostomy and on ventilator. I have been told earlier that his said his ventilator was not working at home, but I had the nurses call her today and she says it works fine. She really should bring it up to use in the hospital. His renal insufficiency is stable for now. He appears comfortable off the ventilator during the day. Job ID: [id number]
[2020-05-04 06:39] LABS: Anion Gap 16 mmol/L (10-20); BUN (Urea Nitrogen) 72 mg/dL (8.4-25.7); Calc. Creatinine Clearance 0 mL/min (70-130); Calcium 8.1 mg/dL (7.8-10.44); Carbon Dioxide 29 mmol/L (23-31); Chloride 103 mmol/L (98-107); Glucose 92 mg/dL (80-115); Potassium 4.3 mmol/L (3.5-5.1); Sodium 144 mmol/L (136-145)
[2020-05-04 07:10] LABS: Band 1 % (5-11); Hemoglobin 15.1 g/dL (14.0-18.0); Lymphocytes 10 % (21-51); MDiff Complete? YES; Mean Corpuscular HGB CONC 30.8 g/dL (32.0-36.0); Mean Corpuscular Volume 94.4 fL (78.0-98.0); Mean Platelet Volume 12.1 fL (7.4-10.4); Monocytes 6 % (0-10); Neutrophil 83 % (42-75); Nucleated RBC 2 % (0); Platelet Count 82 thou/uL (130-400); Platelet Morphology Comment Appears Decreased; RBC Distribution Width 16.1 % (11.5-14.5); Red Blood Cell (RBC) Count 5.22 mill/uL (4.70-6.10); Target Cells SLIGHT = 2-5 cells (100X) (0-1/hpf); White Blood Cell (WBC) Count 12.4 thou/uL (4.8-10.8)
--- NOTE | 2020-05-04 08:04 | RAD ---
Chest AP view INDICATION: History of pneumonia COMPARISON: April 25, 2020 FINDINGS: Lungs: Bilateral airspace disease, right greater than left is stable. Cardiac silhouette: Cardiomegaly is stable. Pulmonary vasculature: Pulmonary vascular congestion persists. Pleural spaces: Bilateral pleural effusions, right greater than left persists. No pneumothorax is ev ident. Upper abdomen: No abnormality seen. Osseous structures: No acute osseous abnormality. Additional findings: Tracheostomy tube is unchanged. IMPRESSION: Stable exam.
[2020-05-04] MEDS: Pantoprazole 40 MG VIAL IVP SCH (09:18)
[2020-05-04] MEDS: Apixaban 2.5 MG TAB PO SCH ×2 (09:18→21:32)
[2020-05-04] MEDS: Docusate 100 MG CAP PO SCH (09:18)
[2020-05-04] MEDS ORDERED: Carvedilol 6.25 MG TAB ONE ×2 (09:21→21:12)
[2020-05-04] MEDS ORDERED: Aspirin Chewable 81 MG TAB ONE (09:21)
[2020-05-04] MEDS: Aspirin Chewable 81 MG TAB PO SCH (09:25)
[2020-05-04] MEDS: Carvedilol 6.25 MG TAB PO SCH ×2 (09:25→21:32)
[2020-05-04] MEDS ORDERED: Sodium Chloride 0.9% 20 ML ONE (09:26)
--- NOTE | 2020-05-04 10:34 | PRG ---
DATE OF SERVICE: 05/04/2020 SUBJECTIVE: A 69-year-old gentleman being seen for acute kidney injury. The patient denies any complaints. PHYSICAL EXAMINATION: GENERAL: The patient is resting. VITAL SIGNS: Afebrile, pulse 87, breathing at 16, blood pressure 147/87. HEENT: Head normocephalic and atraumatic. Eyes intact, no ulcers. Nose intact, no ulcers. Ears intact, no ulcers. NECK: Supple. No JVD. CHEST: Symmetrical and clear. CARDIOVASCULAR: Shows S1 and S2, no rub, no murmur. GASTROINTESTINAL: Abdomen is soft, bowel sounds positive. EXTREMITIES: Show no edema or ulcers. SKIN: Shows no rash or petechiae. MUSCULOSKELETAL: Shows no joint swelling or stiffness. GENITOURINARY: Shows no Garcia or CVA tenderness. NEUROLOGIC: Motor intact. Cranial nerves intact. LABORATORY DATA: creatinine is 2.6. Labs reviewed. ASSESSMENT AND PLAN: 1. Chronic kidney disease, stage 4, stable. 2. Hypertension, stable. 3. Anemia, stable. 4. Hyperkalemia, resolved. No indication for dialysis. We will follow this patient as an outpatient. I will sign off. Job ID: [id number]
--- NOTE | 2020-05-04 12:56 | PDOC.DS.DS ---
Provider Date of Admission: 04/22/20 13:46 Date of Discharge: 05/04/20 Admitting Provider: Irvin Wong MD Consultations: Nephrology (Dr. Jimenez), Pulmonary (Dr. Arboleda) Primary Care Physician: [facility] Course Hospital Course: Discharge diagnosis: 1. Acute kidney injury 2. Shortness of breath secondary to pulmonary hypertension and mucous plugging 3. Hyperkalemia 4. Influenza test negative 5. COVID-19 test negative Hospital course: Patient is a pleasant 69-year-old quadriplegic gentleman who was admitted to the hospital on April 22, 2020 for acute kidney injury and shortness of breath. Shortness of breath was most likely secondary to combination of pulmonary hypertension and mucous plugging. 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 He was seen by pulmonary and nephrology services. He had a tracheostomy prior to admission. He underwent bronchoscopy and was found to have distal tracheal mucous plugging. The mucous plug was removed. Renal ultrasound was limited but did not show mass or hydronephrosis. The right kidney was not evaluated on this exam. 2D echocardiogram was technically difficult examination but EF appeared to be normal. His renal function stabilized. He has been cleared for discharge by nephrology service. In terms of the pancreatic mass, he could not get CT scan with contrast because of renal insufficiency. I ordered MRI to evaluate the mass back the patient would not fit in the MRI machine at the [facility]. He will need to have the study done at [facility], since he will be able to fit in the machine there. I have asked him to follow-up with primary care provider and have the test done at [facility]. His respiratory status stabilized and he is being discharged home. Many thanks for allowing me to participate in your patient's care. Please feel free to contact me with any questions or concerns. Discharge destination: Home Total amount of time spent coordinating this discharge: 32 minutes Resuscitation Status: 04/22/20 12:19 Resuscitation Status Routine Resuscitation Status: FULL: Full Resuscitation Lab Results: 05/04/20 05:32 05/04/20 05:32 Abnormal Lab Results - Last 48 hrs 05/02/20 06:36: MCHC 31.3 L, RDW 16.0 H, Plt Count 81 L, MPV 12.3 H, Lymphocytes % 16.5 L, Monocytes % 11.4 H, Monocytes # 1.0 H 05/03/20 07:49: BUN 69 H, Creatinine 2.71 H 05/03/20 07:49: MCHC 31.3 L, RDW 16.0 H, Plt Count 81 L, MPV 11.9 H, Band Neuts % (Manual) 1 L, Lymphocytes % 16.7 L, Lymphocytes % (Manual) 12 L, Monocytes # 0.8 H, Plt Morphology Comment Appears Decreased L 05/04/20 05:32: BUN 72 H, Creatinine 2.63 H 05/04/20 05:32: WBC 12.4 H, MCHC 30.8 L, RDW 16.1 H, Plt Count 82 L, MPV 12.1 H, Neutrophils % (Manual) 83 H, Band Neuts % (Manual) 1 L, Lymphocytes % (Manual) 10 L, Nucleated RBCs # (Man) 2 H, Plt Morphology Comment Appears Decreased L Microbiology - Entire Visit 04/22/20 10:34 Venous blood - Left Hand Blood Culture - Final Presumptive Corynebacterium sp 04/22/20 11:03 Venous blood - Left Arm Blood Culture - Final NO GROWTH IN 5 DAYS Vitals: Vital Signs (12 hours) Temp Pulse Resp BP Pulse Ox 05/04/20 12:00 98.1 F 05/04/20 09:25 147/87 H 05/04/20 08:14 97 20 96 05/04/20 07:51 97.0 F L 23 H 96 05/04/20 07:00 96.8 F L 97 05/04/20 06:00 12 05/04/20 03:08 19 05/04/20 02:00 8 L 05/04/20 01:53 102 H 18 97 Weight Admit Weight 265 lb 14.04 oz Weight 288 lb 12.889 oz Most Recent Monitor Data Heart Rate from ECG 116 NIBP 107/77 NIBP BP-Mean 87 Respiration from ECG 21 SpO2 97 Physical Exam: The patient was seen and examined on the day of discharge. Patient denies chest pain or shortness of breath. Vital signs are stable. S1 and S2 are heard. Lungs are clear to auscultation bilaterally. Plan Home Medications: Medication Instructions Recorded Confirmed Type Aspir 81 81 mg PO DAILY 11/03/12 11/03/12 History Diltiazem HCl [Cardizem CD] 240 mg PO DAILY 11/03/12 11/03/12 History Fleet Enema PRN 11/03/12 11/03/12 History Lipitor 20 mg PO HS 11/03/12 11/03/12 History Ranitidine HCl 150 mg PO DAILY 11/03/12 11/03/12 History Warfarin Sodium 5 mg PO 11/03/12 11/03/12 History Cefepime [Maxipime] IVPB Q12HR 01/10/13 Rx Warfarin Sodium [Coumadin] 5 mg PO 1700 #0 tab 01/10/13 Rx Amlodipine Besylate [amLODIPine 10 mg PO DAILY 04/22/20 04/22/20 History Besylate] Apixaban [Eliquis] 5 mg PO BID 04/22/20 04/22/20 History Atorvastatin Calcium 20 mg PO HS 04/22/20 04/22/20 History Carvedilol [Coreg] 18.75 mg PO BID 04/22/20 04/22/20 History Docusate Sodium [Dok] 100 mg PO PRN 04/22/20 History Furosemide 20 mg PO HS 04/22/20 04/22/20 History Furosemide 40 mg PO DAILY 04/22/20 04/22/20 History Lisinopril [Prinivil] 10 mg PO BID 04/22/20 04/22/20 History Allergies: No Known Allergies Allergy (Verified 06/25/19 11:20) Referrals: JOHNATHON MORENO & [Primary Care Provider] - Disposition: HOME Quality CORE MEASURES:: N/A
--- NOTE | 2020-05-04 13:55 | PRG ---
DATE OF SERVICE: 05/04/2020 SUBJECTIVE: This patient remains on mechanical ventilation at night, on trach collar during the day. Unfortunately, he is requiring about 60% oxygen during the day. OBJECTIVE: VITAL SIGNS: On exam, temperature 98.1, pulse 116, and blood pressure 107/77. 24-hour intake not quantitated well, output not quantitated well. HEENT: Unremarkable. NECK: No adenopathy or JVD. LUNGS: Clear. ABDOMEN: Soft and nontender. EXTREMITIES: Trace edema. LABORATORY DATA: White blood cell count 12.4, hematocrit 49.2, and platelet count 82. Sodium 144, potassium 4.3, chloride 103, CO2 of 29, BUN 72, and creatinine 2.6. ASSESSMENT AND PLAN: The patient remains on mechanical ventilation. I myself do not think his oxygenation is good enough to go home as he does not have the proper equipment to go above probably 6 L/minute. The only alternative would be to keep him on mechanical ventilation 24 hours a day. I told the patient's spouse that he would benefit from an LTAC prior to discharge. Job ID: [id number]
--- NOTE | 2020-05-04 16:51 | PDOC.HOSPP ---
- Subjective Encounter Date: 05/04/20 Encounter Time: 10:00 Subjective: Pt seen for followup re: acute renal failure. Feels better. - Objective Vital Signs & Weight: Vital Signs (12 hours) Temp Pulse Resp BP Pulse Ox 05/04/20 16:00 97.7 F 05/04/20 15:53 103 H 19 96 05/04/20 12:00 98.1 F 05/04/20 09:25 147/87 H 05/04/20 08:14 97 20 96 05/04/20 07:51 97.0 F L 23 H 96 05/04/20 07:00 96.8 F L 97 05/04/20 06:00 12 Weight Admit Weight 265 lb 14.04 oz Weight 288 lb 12.889 oz Most Recent Monitor Data Heart Rate from ECG 106 NIBP 132/85 NIBP BP-Mean 100 Respiration from ECG 12 SpO2 95 I&O: 05/03/20 05/04/20 05/05/20 06:59 06:59 06:59 Intake Total 420 630 180 Output Total 645 664 255 Balance -225 -34 -75 Result Diagrams: 05/04/20 05:32 05/04/20 05:32 Additional Labs: Labs and MARs reviewed by dc Hospitalist ROS - Review of Systems Constitutional: denies: fever, chills, sweats, weakness, malaise Cardiovascular: denies: chest pain, palpitations, orthopnea, paroxysmal noc. dyspnea, edema, light headedness - Medication Medications: Active Medications Generic Name Dose Route Start Last Admin Trade Name Freq PRN Reason Stop Dose Admin Acetaminophen 650 mg 04/22/20 12:19 05/03/20 21:40 Acetaminophen 325 Mg Tab PO 650 mg Q4H PRN Administration Headache/Fever/Mild Pain (1-3) Albuterol/Ipratropium 3 ml 04/28/20 18:30 05/04/20 15:53 Ipratropium/Albuterol Sulfate 3 Ml Neb NEB 3 ml [id number] CHAPARRITA Administration Apixaban 2.5 mg 04/27/20 09:00 05/04/20 09:18 Apixaban 2.5 Mg Tab PO 2.5 mg BID CHAPARRITA Administration Aspirin 81 mg 04/23/20 09:00 05/04/20 09:25 Aspirin Chewable 81 Mg Tab PO 81 mg DAILY CHAPARRITA Administration Atorvastatin Calcium 20 mg 04/22/20 21:00 05/03/20 20:03 Atorvastatin Calcium 20 Mg Tab PO 20 mg HS CHAPARRITA Administration Carvedilol 6.25 mg 05/03/20 09:00 05/04/20 09:25 Carvedilol 6.25 Mg Tab PO 6.25 mg BID CHAPARRITA Administration Docusate Sodium 100 mg 05/02/20 09:00 05/04/20 09:18 Docusate 100 Mg Cap PO 100 mg DAILY CHAPARRITA Administration Pantoprazole Sodium 40 mg 04/24/20 09:00 05/04/20 09:18 Pantoprazole 40 Mg Vial IVP 40 mg DAILY CHAPARRITA Administration Sodium Chloride 10 ml 04/26/20 22:00 05/04/20 09:27 Flush - Normal Saline 10 Ml Syringe IVF 10 ml PRN PRN Administration Saline Flush Hospitalist Exam Vitals: Vital Signs (12 hours) Temp Pulse Resp BP Pulse Ox 05/04/20 16:00 97.7 F 05/04/20 15:53 103 H 19 96 05/04/20 12:00 98.1 F 05/04/20 09:25 147/87 H 05/04/20 08:14 97 20 96 05/04/20 07:51 97.0 F L 23 H 96 05/04/20 07:00 96.8 F L 97 05/04/20 06:00 12 Weight Admit Weight 265 lb 14.04 oz Weight 288 lb 12.889 oz Most Recent Monitor Data Heart Rate from ECG 106 NIBP 132/85 NIBP BP-Mean 100 Respiration from ECG 12 SpO2 95 General Appearance: awake alert ENT - other findings: trach Heart: RRR Respiratory: CTAB Gastrointestinal: soft Skin: no rashes Psychiatric: normal affect Hosp A/P - Plan Hosp A/P (1) SWETHA (acute kidney injury) Code(s): N17.9 - ACUTE KIDNEY FAILURE, UNSPECIFIED Status: Acute (2) SOB (shortness of breath) Code(s): R06.02 - SHORTNESS OF BREATH Status: Acute (3) Pulmonary hypertension Code(s): I27.20 - PULMONARY HYPERTENSION, UNSPECIFIED Status: Chronic (4) Quadriplegia Code(s): G82.50 - QUADRIPLEGIA, UNSPECIFIED Status: Chronic (5) Pancreatic mass Status: Acute (6) Atrial fibrillation Code(s): I48.91 - UNSPECIFIED ATRIAL FIBRILLATION Status: Chronic Qualifiers: Atrial fibrillation type: paroxysmal Qualified Code(s): I48.0 - Paroxysmal atrial fibrillation (7) Chronic diastolic (congestive) heart failure Code(s): I50.32 - CHRONIC DIASTOLIC (CONGESTIVE) HEART FAILURE Status: Acute (8) Pleural effusion Code(s): J90 - PLEURAL EFFUSION, NOT ELSEWHERE CLASSIFIED Status: Acute (9) Acute metabolic encephalopathy Code(s): G93.41 - METABOLIC ENCEPHALOPATHY Status: Acute - Plan Patient is a 69-year-old male with a history of quadriplegia with a trach and chronic daily ventilator support. Patient presented to the emergency department with worsening shortness of breath. In the emergency department the patient was initially found to be mildly hypotensive at 84/45 with a heart rate ranging from 70-110. He was felt to possibly have Covid pneumonia and was given Decadron and azithromycin in the emergency department. Chest x-ray confirmed bilateral pleural effusions and cardiomegaly. CT of the chest was not consistent with Covid pneumonia but did reveal pleural effusions and a 3.8 cm mass in the tail of the pancreas. Acute kidney injury: Creatinine stabilized. Shortness of breath, acute on chronic hypoxic respiratory failure: Clinically improved. Pancreatic mass: Patient will need imaging as outpatientMRI at ). Chronic congestive heart failure: Stable Atrial fibrillation: Continue Eliquis. Acute metabolic encephalopathy: Resolved LTAC eval.
[2020-05-04] MEDS ORDERED: Lidocaine 2% Viscous Solution 10 ML, Aluminum & Magnesium Hydroxide 30 ML SSW SCH (19:45)
[2020-05-04] MEDS ORDERED: Atorvastatin Calcium 20 MG TAB ONE (21:36)
[2020-05-04] MEDS: Atorvastatin Calcium 20 MG TAB PO SCH (21:37)
[2020-05-05 06:28] LABS: Anion Gap 16 mmol/L (10-20); BUN (Urea Nitrogen) 76 mg/dL (8.4-25.7); Calc. Creatinine Clearance 49 mL/min (70-130); Calcium 8.3 mg/dL (7.8-10.44); Carbon Dioxide 28 mmol/L (23-31); Chloride 104 mmol/L (98-107); Glucose 97 mg/dL (80-115); Potassium 4.3 mmol/L (3.5-5.1); Sodium 144 mmol/L (136-145)
[2020-05-05 09:22] LABS: Band 6 % (5-11); Hemoglobin 14.9 g/dL (14.0-18.0); Lymphocytes 21 % (21-51); MDiff Complete? YES; Mean Corpuscular HGB CONC 30.9 g/dL (32.0-36.0); Mean Corpuscular Hemoglobin 28.9 pg (27.0-31.0); Mean Corpuscular Volume 93.7 fL (78.0-98.0); Mean Platelet Volume 11.7 fL (7.4-10.4); Monocytes 5 % (0-10); Neutrophil 68 % (42-75); Platelet Count 96 thou/uL (130-400); RBC Distribution Width 16.3 % (11.5-14.5); Red Blood Cell (RBC) Count 5.14 mill/uL (4.70-6.10)
[2020-05-05] MEDS ORDERED: Sodium Chloride 0.9% 10 ML ONE (09:42)
[2020-05-05] MEDS: Apixaban 2.5 MG TAB PO SCH ×2 (09:52→21:57)
[2020-05-05] MEDS: Pantoprazole 40 MG VIAL IVP SCH (09:52)
[2020-05-05] MEDS: Aspirin Chewable 81 MG TAB PO SCH (10:20)
[2020-05-05] MEDS: Docusate 100 MG CAP PO SCH (10:21)
[2020-05-05] MEDS: Carvedilol 6.25 MG TAB PO SCH ×2 (10:21→21:59)
[2020-05-05] MEDS ORDERED: Carvedilol 3.125 MG TAB PO SCH (12:00)
--- NOTE | 2020-05-05 14:45 | PRG ---
DATE OF SERVICE: 05/05/2020 SUBJECTIVE: The patient remains on ventilator nightly, on trach collar during the day. He says he is feeling better. OBJECTIVE: VITAL SIGNS: Temperature 98.8, pulse 120, blood pressure 99/66. HEENT: Unremarkable. NECK: No adenopathy or JVD. Trach in good position. LUNGS: Poor air movement on the right compared to left. CARDIAC: S1 and S2. Regular. ABDOMEN: Soft. EXTREMITIES: No overt edema. LABORATORY DATA: White blood cell count 9, hematocrit 48.2, and platelet count 96. Sodium 144, potassium 4.3, chloride 104, CO2 of 28, BUN 76, creatinine 2.5, and glucose 97. ASSESSMENT: The patient has chronic respiratory failure secondary to quadriplegia. He still has very borderline oxygenation and I still think he needs some type of LTAC or rehab before going home as I do not think his can take care of him. I have conveyed this to the outpatient case manager. Further evaluation will be done on Thursday. Job ID: [id number]
--- NOTE | 2020-05-05 16:26 | PDOC.HOSPP ---
- Subjective Encounter Date: 05/05/20 Encounter Time: 10:00 Subjective: Patient seen in follow-up for acute renal failure. Patient denies any new complaints. - Objective Vital Signs & Weight: Vital Signs (12 hours) Temp Pulse Resp BP Pulse Ox 05/05/20 14:46 132 H 28 H 93 L 05/05/20 13:51 118 H 26 H 138/94 H 93 L 05/05/20 12:23 98.8 F 117 H 25 H 128/88 93 L 05/05/20 11:32 122 H 21 H 94 L 05/05/20 11:00 103 H 24 H 123/93 H 94 L 05/05/20 08:58 97.3 F L 05/05/20 08:00 20 98 05/05/20 07:25 98.4 F 05/05/20 06:06 123 H 16 94 L Weight Admit Weight 265 lb 14.04 oz Weight 289 lb 4.8 oz Most Recent Monitor Data Heart Rate from ECG 120 NIBP 99/66 NIBP BP-Mean 77 Respiration from ECG 25 SpO2 92 I&O: 05/04/20 05/05/20 05/06/20 06:59 06:59 06:59 Intake Total 630 300 310 Output Total 664 675 235 Balance -34 -375 75 Result Diagrams: 05/05/20 05:49 05/05/20 05:49 Additional Labs: I reviewed patient's labs and [facility] Hospitalist ROS - Review of Systems Cardiovascular: denies: chest pain, palpitations, orthopnea, paroxysmal noc. dyspnea, edema, light headedness Skin: denies: rash, lesions, kassandra, bruising - Medication Medications: Active Medications Generic Name Dose Route Start Last Admin Trade Name Freq PRN Reason Stop Dose Admin Acetaminophen 650 mg 04/22/20 12:19 05/03/20 21:40 Acetaminophen 325 Mg Tab PO 650 mg Q4H PRN Administration Headache/Fever/Mild Pain (1-3) Albuterol/Ipratropium 3 ml 04/28/20 18:30 05/05/20 14:46 Ipratropium/Albuterol Sulfate 3 Ml Neb NEB 3 ml [id number] CHAPARRITA Administration Apixaban 2.5 mg 04/27/20 09:00 05/05/20 09:52 Apixaban 2.5 Mg Tab PO 2.5 mg BID CHAPARRITA Administration Aspirin 81 mg 04/23/20 09:00 05/05/20 10:20 Aspirin Chewable 81 Mg Tab PO 81 mg DAILY CHAPARRITA Administration Atorvastatin Calcium 20 mg 04/22/20 21:00 05/04/20 21:37 Atorvastatin Calcium 20 Mg Tab PO 20 mg HS CHAPARRITA Administration Carvedilol 6.25 mg 05/03/20 09:00 05/05/20 10:21 Carvedilol 6.25 Mg Tab PO 6.25 mg BID CHAPARRITA Administration Docusate Sodium 100 mg 05/02/20 09:00 05/05/20 10:21 Docusate 100 Mg Cap PO 100 mg DAILY CHAPARRITA Administration Pantoprazole Sodium 40 mg 04/24/20 09:00 05/05/20 09:52 Pantoprazole 40 Mg Vial IVP 40 mg DAILY CHAPARRITA Administration Sodium Chloride 10 ml 04/26/20 22:00 05/04/20 09:27 Flush - Normal Saline 10 Ml Syringe IVF 10 ml PRN PRN Administration Saline Flush Hospitalist Exam Vitals: Vital Signs (12 hours) Temp Pulse Resp BP Pulse Ox 05/05/20 14:46 132 H 28 H 93 L 05/05/20 13:51 118 H 26 H 138/94 H 93 L 05/05/20 12:23 98.8 F 117 H 25 H 128/88 93 L 05/05/20 11:32 122 H 21 H 94 L 05/05/20 11:00 103 H 24 H 123/93 H 94 L 05/05/20 08:58 97.3 F L 05/05/20 08:00 20 98 05/05/20 07:25 98.4 F 05/05/20 06:06 123 H 16 94 L Weight Admit Weight 265 lb 14.04 oz Weight 289 lb 4.8 oz Most Recent Monitor Data Heart Rate from ECG 120 NIBP 99/66 NIBP BP-Mean 77 Respiration from ECG 25 SpO2 92 General Appearance: awake alert ENT - other findings: Tracheostomy Heart: irregular Heart - other findings: S1, S2, irregular and tachycardic Respiratory: CTAB Gastrointestinal: soft, non-tender Psychiatric: normal affect Hosp A/P - Plan 05/05/20: Patient is a pleasant 69-year-old quadriplegic gentleman who was admitted to the hospital on April 22, 2020 for acute kidney injury and shortness of breath. Shortness of breath was most likely secondary to combination of pulmonary hypertension and mucous plugging. 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 He was seen by pulmonary and nephrology services. He had a tracheostomy prior to admission. He underwent bronchoscopy and was found to have distal tracheal mucous plugging. The mucous plug was removed. Renal ultrasound was limited but did not show mass or hydronephrosis. The right kidney was not evaluated on this exam. 2D echocardiogram was technically difficult examination but EF appeared to be normal. His renal function stabilized. He has been cleared for discharge by nephrology service. In terms of the pancreatic mass, he could not get CT scan with contrast because of renal insufficiency. I ordered MRI to evaluate the mass back the patient would not fit in the MRI machine at the [facility]. He will need to have the study done at [facility], since he will be able to fit in the machine there. I have asked him to follow-up with primary care provider and have the test done at [facility]. He does continue to have high oxygen requirements and therefore he is being yajaira luated for LTAC versus rehab. Case management is involved in this process. Hosp A/P (1) SWETHA (acute kidney injury) Code(s): N17.9 - ACUTE KIDNEY FAILURE, UNSPECIFIED Status: Acute (2) SOB (shortness of breath) Code(s): R06.02 - SHORTNESS OF BREATH Status: Acute (3) Pulmonary hypertension Code(s): I27.20 - PULMONARY HYPERTENSION, UNSPECIFIED Status: Chronic (4) Quadriplegia Code(s): G82.50 - QUADRIPLEGIA, UNSPECIFIED Status: Chronic (5) Pancreatic mass Status: Acute (6) Atrial fibrillation Code(s): I48.91 - UNSPECIFIED ATRIAL FIBRILLATION Status: Chronic Qualifiers: Atrial fibrillation type: paroxysmal Qualified Code(s): I48.0 - Paroxysmal atrial fibrillation (7) Chronic diastolic (congestive) heart failure Code(s): I50.32 - CHRONIC DIASTOLIC (CONGESTIVE) HEART FAILURE Status: Acute (8) Pleural effusion Code(s): J90 - PLEURAL EFFUSION, NOT ELSEWHERE CLASSIFIED Status: Acute (9) Acute metabolic encephalopathy Code(s): G93.41 - METABOLIC ENCEPHALOPATHY Status: Acute - Plan Acute kidney injury: Creatinine stabilized. acute on chronic hypoxic respiratory failure: Clinically improved. Pancreatic mass: Patient will need MRI as outpatient. Chronic congestive heart failure: Stable Atrial fibrillation: Continue Eliquis. His heart rate has been high today, carvedilol dose increased today. Acute metabolic encephalopathy: Resolved LTAC/Rehab eval.
--- NOTE | 2020-05-05 21:20 | PDOC.BPN ---
- Brief Progress Note Encounter Date: 05/05/20 Encounter Time: 21:20 Subjective: Patient is seen and examined in the recovery unit. No acute overnight events. Review of systems Gen.: No fever, no chills All the 14 systems reviewed except for the ones mentioned above are negative Physical examination Vital Signs Temp 98.2 F 05/05/20 20:00 Pulse 112 H 05/05/20 19:22 Resp 25 H 05/05/20 20:00 BP 119/81 05/05/20 18:28 Pulse Ox 94 L 05/05/20 18:28 Intake & Output 05/05/20 05/05/20 05/06/20 06:59 18:59 06:59 Intake Total 60 360 Output Total 360 340 60 Balance -300 20 -60 Weight 289 lb 4.8 oz Intake: Oral 60 340 Tube Irrigant 20 Output: Output, Garcia 360 340 60 Other: Voiding Method Indwelling Catheter Constitutional: comfortable, not in pain HEENT: Mucous membranes moist, no icterus Neck: Tracheostomy noted Heart: Irregularly irregular, tachycardic, no murmurs Lungs: Air entry equal bilateral; no wheezes Abdomen: Soft; nontender; no guarding/tenderness/rebound Extremities: 2-3+ pitting edema bilaterally Neurological: Patient is awake, following commands Skin: No rash, no ulcers Psychological: Not agitated Labs and Imaging reviewed Laboratory Results - last 24 hr 05/05/20 05/05/20 05:49 05:49 WBC 9.0 RBC 5.14 Hgb 14.9 Hct 48.2 MCV 93.7 MCH 28.9 MCHC 30.9 L RDW 16.3 H Plt Count 96 L MPV 11.7 H Neutrophils % (Manual) 68 Band Neuts % (Manual) 6 Lymphocytes % (Manual) 21 Monocytes % (Manual) 5 Sodium 144 Potassium 4.3 Chloride 104 Carbon Dioxide 28 Anion Gap 16 BUN 76 H Creatinine 2.58 H Estimated GFR (MDRD) 30 Glucose 97 Calcium 8.3 Active Medications Generic Name Dose Route Start Last Admin Trade Name Freq PRN Reason Stop Dose Admin Acetaminophen 650 mg 04/22/20 12:19 05/03/20 21:40 Acetaminophen 325 Mg Tab PO 650 mg Q4H PRN Administration Headache/Fever/Mild Pain (1-3) Albuterol/Ipratropium 3 ml 04/28/20 18:30 05/05/20 19:22 Ipratropium/Albuterol Sulfate 3 Ml Neb NEB 3 ml [id number] CHAPARRITA Administration Apixaban 2.5 mg 04/27/20 09:00 05/05/20 09:52 Apixaban 2.5 Mg Tab PO 2.5 mg BID CHAPARRITA Administration Aspirin 81 mg 04/23/20 09:00 05/05/20 10:20 Aspirin Chewable 81 Mg Tab PO 81 mg DAILY CHAPARRITA Administration Atorvastatin Calcium 20 mg 04/22/20 21:00 05/04/20 21:37 Atorvastatin Calcium 20 Mg Tab PO 20 mg HS CHAPARRITA Administration Carvedilol 6.25 mg 05/03/20 09:00 05/05/20 10:21 Carvedilol 6.25 Mg Tab PO 6.25 mg BID CHAPARRITA Administration Diltiazem HCl 30 mg 05/05/20 21:00 Diltiazem Hcl 30 Mg Tablet PO ACHS CHAPARRITA Docusate Sodium 100 mg 05/02/20 09:00 05/05/20 10:21 Docusate 100 Mg Cap PO 100 mg DAILY CHAPARRITA Administration Sodium Bicarbonate 100 meq/ 1,100 mls @ 550 mls/hr 04/30/20 13:15 Dextrose/Water IV INF CHAPARRITA Pantoprazole Sodium 40 mg 04/24/20 09:00 05/05/20 09:52 Pantoprazole 40 Mg Vial IVP 40 mg DAILY CHAPARRITA Administration Sodium Chloride 10 ml 04/26/20 22:00 05/04/20 09:27 Flush - Normal Saline 10 Ml Syringe IVF 10 ml PRN PRN Administration Saline Flush Assessment and plan CKD stage IV Hypertension Anemia Hyperkalemia Patient renal function continues to improve with adequate urine output. Patient has significant volume overload, add diuretics if hemodynamics permit. Dose meds for eGFR~ 30 ml/mt. D/w RN
[2020-05-05] MEDS: Atorvastatin Calcium 20 MG TAB PO SCH (21:59)
[2020-05-06 07:02] LABS: Anion Gap 13 mmol/L (10-20); BUN (Urea Nitrogen) 69 mg/dL (8.4-25.7); Calc. Creatinine Clearance 53 mL/min (70-130); Calcium 8.1 mg/dL (7.8-10.44); Carbon Dioxide 30 mmol/L (23-31); Chloride 106 mmol/L (98-107); Glucose 104 mg/dL (80-115); Sodium 145 mmol/L (136-145)
--- NOTE | 2020-05-06 08:27 | PRG ---
DATE OF SERVICE: 05/06/2020 SUBJECTIVE: He had some problems with thick secretions, but he is awake, alert. OBJECTIVE: VITAL SIGNS: His temperature is 36.1 degree Celsius, pulse 105, blood pressure 142/102, O2 saturation 93%. Currently wearing a T-piece. GENERAL: He is in no distress. HEENT: Unremarkable. NECK: No adenopathy or JVD. LUNGS: Clear. CARDIAC: S1 and S2. Regular. ABDOMEN: Soft. EXTREMITIES: Less edema. LABORATORY DATA: Sodium 145, potassium 4, chloride 106, CO2 of 30, BUN 69, creatinine 2.4, and glucose 104. ASSESSMENT: 1. Chronic respiratory failure secondary to quadriplegia. 2. Slowly improving fluid balance. PLAN: I still think he needs some kind of intermediate step between here and home. I would focus on LTAC or rehab. He continues nocturnal ventilation. Job ID: [id number]
[2020-05-06 08:38] LABS: Band 6 % (5-11); Eosinophils 1 % (0-10); Hemoglobin 14.1 g/dL (14.0-18.0); Lymphocytes 22 % (21-51); MDiff Complete? YES; Mean Corpuscular HGB CONC 31.7 g/dL (32.0-36.0); Mean Corpuscular Hemoglobin 29.7 pg (27.0-31.0); Mean Corpuscular Volume 93.9 fL (78.0-98.0); Mean Platelet Volume 11.5 fL (7.4-10.4); Monocytes 3 % (0-10); Neutrophil 68 % (42-75); Nucleated RBC 5 % (0); Platelet Count 86 thou/uL (130-400); Polychromasia SLIGHT = 2-3 cells (100X) (0-2/hpf); RBC Distribution Width 16.2 % (11.5-14.5); Red Blood Cell (RBC) Count 4.75 mill/uL (4.70-6.10); Target Cells SLIGHT = 2-5 cells (100X) (0-1/hpf); White Blood Cell (WBC) Count 9.9 thou/uL (4.8-10.8)
[2020-05-06] MEDS: Apixaban 2.5 MG TAB PO SCH ×2 (09:15→21:23)
[2020-05-06] MEDS: Docusate 100 MG CAP PO SCH (09:15)
[2020-05-06] MEDS: Pantoprazole 40 MG VIAL IVP SCH (09:16)
[2020-05-06] MEDS ORDERED: Sodium Chloride 0.9% 50 ML ONE (09:21)
[2020-05-06] MEDS: Carvedilol 6.25 MG TAB PO SCH ×2 (10:32→21:23)
[2020-05-06] MEDS: Aspirin Chewable 81 MG TAB PO SCH (10:33)
--- NOTE | 2020-05-06 11:50 | PDOC.HOSPP ---
- Subjective Encounter Date: 05/06/20 Subjective: The patient denied any new complaints today. - Objective Vital Signs & Weight: Vital Signs (12 hours) Temp Pulse Resp BP Pulse Ox 05/06/20 11:12 114 H 28 H 92 L 05/06/20 10:32 141/80 H 05/06/20 07:13 110 H 20 98 05/06/20 07:11 98 05/06/20 06:00 36.1 F L 15 05/06/20 04:00 20 05/06/20 02:43 114 H 05/06/20 02:42 104 H 16 99 05/06/20 02:00 20 05/06/20 00:00 95 Weight Admit Weight 265 lb 14.04 oz Weight 292 lb 12.382 oz Most Recent Monitor Data Heart Rate from ECG 105 NIBP 142/102 NIBP BP-Mean 115 Respiration from ECG 22 SpO2 93 I&O: 05/05/20 05/06/20 05/07/20 06:59 06:59 06:59 Intake Total 300 420 10 Output Total 675 595 Balance -375 -175 10 Result Diagrams: 05/06/20 06:34 05/06/20 06:34 Hospitalist ROS - Medication Medications: Active Medications Generic Name Dose Route Start Last Admin Trade Name Freq PRN Reason Stop Dose Admin Acetaminophen 650 mg 04/22/20 12:19 05/03/20 21:40 Acetaminophen 325 Mg Tab PO 650 mg Q4H PRN Administration Headache/Fever/Mild Pain (1-3) Albuterol/Ipratropium 3 ml 04/28/20 18:30 05/06/20 11:12 Ipratropium/Albuterol Sulfate 3 Ml Neb NEB 3 ml [id number] CHAPARRITA Administration Apixaban 2.5 mg 04/27/20 09:00 05/06/20 09:15 Apixaban 2.5 Mg Tab PO 2.5 mg BID CHAPARRITA Administration Aspirin 81 mg 04/23/20 09:00 05/06/20 10:33 Aspirin Chewable 81 Mg Tab PO 81 mg DAILY CHAPARRITA Administration Atorvastatin Calcium 20 mg 04/22/20 21:00 05/05/20 21:59 Atorvastatin Calcium 20 Mg Tab PO 20 mg HS CHAPARRITA Administration Carvedilol 6.25 mg 05/03/20 09:00 05/06/20 10:32 Carvedilol 6.25 Mg Tab PO 6.25 mg BID CHAPARRITA Administration Diltiazem HCl 30 mg 05/05/20 21:00 05/06/20 11:16 Diltiazem Hcl 30 Mg Tablet PO 30 mg ACHS CHAPARRITA Administration Docusate Sodium 100 mg 05/02/20 09:00 05/06/20 09:15 Docusate 100 Mg Cap PO 100 mg DAILY CHAPARRITA Administration Pantoprazole Sodium 40 mg 04/24/20 09:00 05/06/20 09:16 Pantoprazole 40 Mg Vial IVP 40 mg DAILY CHAPARRITA Administration Sodium Chloride 10 ml 04/26/20 22:00 05/04/20 09:27 Flush - Normal Saline 10 Ml Syringe IVF 10 ml PRN PRN Administration Saline Flush Hospitalist Exam Vitals: Vital Signs (12 hours) Temp Pulse Resp BP Pulse Ox 05/06/20 11:12 114 H 28 H 92 L 05/06/20 10:32 141/80 H 05/06/20 07:13 110 H 20 98 05/06/20 07:11 98 05/06/20 06:00 36.1 F L 15 05/06/20 04:00 20 05/06/20 02:43 114 H 05/06/20 02:42 104 H 16 99 05/06/20 02:00 20 05/06/20 00:00 95 Weight Admit Weight 265 lb 14.04 oz Weight 292 lb 12.382 oz Most Recent Monitor Data Heart Rate from ECG 105 NIBP 142/102 NIBP BP-Mean 115 Respiration from ECG 22 SpO2 93 General Appearance: awake alert ENT: normocephalic atraumatic Neck: supple Respiratory: normal chest expansion, no tachypnea Gastrointestinal: soft Extremities: no cyanosis, no clubbing, 1+ LE edema Hosp A/P - Plan 05/05/20: Patient is a pleasant 69-year-old quadriplegic gentleman who was admi tted to the hospital on April 22, 2020 for acute kidney injury and shortness of breath. Shortness of breath was most likely secondary to combination of pulmonary hypertension and mucous plugging. 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 He was seen by pulmonary and nephrology services. He had a tracheostomy prior to admission. He underwent bronchoscopy and was found to have distal tracheal mucous plugging. The mucous plug was removed. Renal ultrasound was limited but did not show mass or hydronephrosis. The right kidney was not evaluated on this exam. 2D echocardiogram was technically difficult examination but EF appeared to be normal. His renal function stabilized. He has been cleared for discharge by nephrology service. In terms of the pancreatic mass, he could not get CT scan with contrast because of renal insufficiency. I ordered MRI to evaluate the mass back the patient would not fit in the MRI machine at the [facility]. He will need to have the study done at [facility], since he will be able to fit in the machine there. I have asked him to follow-up with primary care provider and have the test done at [facility]. He does continue to have high oxygen requirements and therefore he is being evaluated for LTAC versus rehab. Case management is involved in this process. 05/06: No new events overnight. Urine output seems to be better. Generalized edema still present. Creatinine level improving. Hosp A/P (1) SWETHA (acute kidney injury) Code(s): N17.9 - ACUTE KIDNEY FAILURE, UNSPECIFIED Status: Acute (2) SOB (shortness of breath) Code(s): R06.02 - SHORTNESS OF BREATH Status: Acute (3) Pulmonary hypertension Code(s): I27.20 - PULMONARY HYPERTENSION, UNSPECIFIED Status: Chronic (4) Quadriplegia Code(s): G82.50 - QUADRIPLEGIA, UNSPECIFIED Status: Chronic (5) Pancreatic mass Status: Acute (6) Atrial fibrillation Code(s): I48.91 - UNSPECIFIED ATRIAL FIBRILLATION Status: Chronic Qualifiers: Atrial fibrillation type: paroxysmal Qualified Code(s): I48.0 - Paroxysmal atrial fibrillation (7) Chronic diastolic (congestive) heart failure Code(s): I50.32 - CHRONIC DIASTOLIC (CONGESTIVE) HEART FAILURE Status: Acute (8) Pleural effusion Code(s): J90 - PLEURAL EFFUSION, NOT ELSEWHERE CLASSIFIED Status: Acute (9) Acute metabolic encephalopathy Code(s): G93.41 - METABOLIC ENCEPHALOPATHY Status: Acute
--- NOTE | 2020-05-06 12:19 | RAD ---
RADIOGRAPH CHEST 1 VIEW: DATE: 05/06/2020 TIME: 11:36 AM HISTORY: 69-year-old male follow-up pneumonia COMPARISON: 05/04/2020 FINDINGS: Limited because of body habitus. Moderate to large right pleural effusion. Opacification of most of the right lung except for right apex (apex unchanged) and a new small aerate d portion of right midlung zone (this portion was totally opacified previously). Moderate to large left pleural effusion. Dense opacification of lower two thirds of left lung. The density has increased at the left base comp ared to prior. Tracheostomy tube. No pneumothorax. IMPRESSION: 1) moderate to large bilateral pleural effusions. 2) consolidations of most of the bilateral lungs, with relative sparing of apices. 3) regions of interval slight improvement of aeration at right midlung field, and worsening of aerati on at left base.
[2020-05-06 12:55] LABS: Actual Bicarbonate (HCO3a) 31.7 mEq/L (22-28); Base Excess (BEa) 4.4 mEq/L (-2.0 to +3.0); CO2 Tension 57.6 mmHg (35.0-45.0); Calcium, Ionized (arterial) 1.13 mmol/L (1.12-1.30); Carboxyhemoglobin (COHb) 1.1 gm% (0.0-3.0); Hemoglobin (Hb) 15.2 g/dL (14.0-18.0); Potassium - ABG Lab 3.73 mmol/L (3.70-5.30); pH, Arterial 7.36 (7.35-7.45)
[2020-05-06 12:56] LABS: Puncture Site LRA
[2020-05-06] MEDS: Atorvastatin Calcium 20 MG TAB PO SCH (21:22)
[2020-05-07 04:48] LABS: Anion Gap 16 mmol/L (10-20); BUN (Urea Nitrogen) 65 mg/dL (8.4-25.7); Calc. Creatinine Clearance 57 mL/min (70-130); Calcium 8.4 mg/dL (7.8-10.44); Carbon Dioxide 28 mmol/L (23-31); Chloride 106 mmol/L (98-107); Glucose 85 mg/dL (80-115); Potassium 3.7 mmol/L (3.5-5.1); Sodium 146 mmol/L (136-145)
[2020-05-07 05:04] LABS: Anisocytosis SLIGHT = 6-15 cells (100X) (0-5/hpf); Band 2 % (5-11); Hemoglobin 14.2 g/dL (14.0-18.0); Lymphocytes 18 % (21-51); MDiff Complete? YES; Mean Corpuscular HGB CONC 32.8 g/dL (32.0-36.0); Mean Corpuscular Hemoglobin 30.7 pg (27.0-31.0); Mean Corpuscular Volume 93.5 fL (78.0-98.0); Mean Platelet Volume 11.4 fL (7.4-10.4); Monocytes 5 % (0-10); Neutrophil 75 % (42-75); Nucleated RBC 1 % (0); Platelet Count 80 thou/uL (130-400); Platelet Morphology Comment Appears Decreased; RBC Distribution Width 16.2 % (11.5-14.5); Red Blood Cell (RBC) Count 4.64 mill/uL (4.70-6.10); White Blood Cell (WBC) Count 6.8 thou/uL (4.8-10.8)
[2020-05-07] MEDS: Apixaban 2.5 MG TAB PO SCH ×2 (08:48→20:34)
[2020-05-07] MEDS: Pantoprazole 40 MG VIAL IVP SCH (08:55)
[2020-05-07] MEDS ORDERED: Aspirin Chewable 81 MG TAB ONE (09:02)
[2020-05-07] MEDS: Docusate 100 MG CAP PO SCH (09:03)
[2020-05-07] MEDS ORDERED: Carvedilol 6.25 MG TAB ONE (09:03)
[2020-05-07] MEDS: Aspirin Chewable 81 MG TAB PO SCH (09:03)
[2020-05-07] MEDS: Carvedilol 6.25 MG TAB PO SCH ×2 (09:03→20:33)
--- NOTE | 2020-05-07 09:07 | RAD ---
CHEST 1 VIEW: Date: 05/07/2020 INDICATION: History of pneumonia. COMPARISON: Prior exam dated 05/06/2020. IMPRESSION: Bilateral pleural parenchymal opacities persist. Cardiomegaly and pulmonary vascular congestion is si milar appearing. Tracheostomy tube is similar appearing. No pneumothorax is evident. POS: [facility]
[2020-05-07] MEDS ORDERED: Sodium Chloride 0.9% 20 ML ONE (09:12)
[2020-05-07] MEDS: Bumetanide 1 MG/4 ML VIAL IVP SCH (13:23)
--- NOTE | 2020-05-07 15:53 | PDOC.HOSPP ---
- Subjective Encounter Date: 05/07/20 Subjective: The patient denies any new complaints. He has been tachycardic today. Generalized edema is noted. - Objective Vital Signs & Weight: Vital Signs (12 hours) Temp Pulse Resp BP Pulse Ox 05/07/20 14:38 108 H 15 89 L 05/07/20 11:58 97.2 F L 05/07/20 10:26 116 H 17 91 L 05/07/20 09:03 118/76 05/07/20 08:00 97.7 F 05/07/20 07:34 94 L 05/07/20 07:28 118 H 13 94 L 05/07/20 07:05 96 05/07/20 06:00 12 05/07/20 04:00 97.9 F 12 Weight Admit Weight 265 lb 14.04 oz Weight 287 lb 14.779 oz Most Recent Monitor Data Heart Rate from ECG 119 NIBP 122/77 NIBP BP-Mean 92 Respiration from ECG 25 SpO2 93 I&O: 05/06/20 05/07/20 05/08/20 06:59 06:59 06:59 Intake Total 125 819 8112 Output Total 595 1225 345 Balance -175 -805 695 Result Diagrams: 05/07/20 03:54 05/07/20 03:54 Hospitalist ROS - Medication Medications: Active Medications Generic Name Dose Route Start Last Admin Trade Name Freq PRN Reason Stop Dose Admin Acetaminophen 650 mg 04/22/20 12:19 05/03/20 21:40 Acetaminophen 325 Mg Tab PO 650 mg Q4H PRN Administration Headache/Fever/Mild Pain (1-3) Albuterol/Ipratropium 3 ml 04/28/20 18:30 05/07/20 14:38 Ipratropium/Albuterol Sulfate 3 Ml Neb NEB 3 ml [id number] CHAPARRITA Administration Apixaban 2.5 mg 04/27/20 09:00 05/07/20 08:48 Apixaban 2.5 Mg Tab PO 2.5 mg BID CHAPARRITA Administration Aspirin 81 mg 04/23/20 09:00 05/07/20 09:03 Aspirin Chewable 81 Mg Tab PO 81 mg DAILY CHAPARRITA Administration Atorvastatin Calcium 20 mg 04/22/20 21:00 05/06/20 21:22 Atorvastatin Calcium 20 Mg Tab PO 20 mg HS CHAPARRITA Administration Bumetanide 1 mg 05/07/20 14:00 05/07/20 13:23 Bumetanide 1 Mg/4 Ml Vial IVP 1 mg 0600,1400 CHAPARRITA Administration Carvedilol 6.25 mg 05/03/20 09:00 05/07/20 09:03 Carvedilol 6.25 Mg Tab PO 6.25 mg BID CHAPARRITA Administration Docusate Sodium 100 mg 05/02/20 09:00 05/07/20 09:03 Docusate 100 Mg Cap PO 100 mg DAILY CHAPARRITA Administration Pantoprazole Sodium 40 mg 04/24/20 09:00 05/07/20 08:55 Pantoprazole 40 Mg Vial IVP 40 mg DAILY CHAPARRITA Administration Sodium Chloride 10 ml 04/26/20 22:00 05/04/20 09:27 Flush - Normal Saline 10 Ml Syringe IVF 10 ml PRN PRN Administration Saline Flush Hospitalist Exam Vitals: Vital Signs (12 hours) Temp Pulse Resp BP Pulse Ox 05/07/20 14:38 108 H 15 89 L 05/07/20 11:58 97.2 F L 05/07/20 10:26 116 H 17 91 L 05/07/20 09:03 118/76 05/07/20 08:00 97.7 F 05/07/20 07:34 94 L 05/07/20 07:28 118 H 13 94 L 05/07/20 07:05 96 05/07/20 06:00 12 05/07/20 04:00 97.9 F 12 Weight Admit Weight 265 lb 14.04 oz Weight 287 lb 14.779 oz Most Recent Monitor Data Heart Rate from ECG 119 NIBP 122/77 NIBP BP-Mean 92 Respiration from ECG 25 SpO2 93 General Appearance: awake alert ENT: normocephalic atraumatic Heart: irregular Respiratory: normal chest expansion, no tachypnea Extremities: no cyanosis, no clubbing, 2+ LE edema Hosp A/P - Plan 05/05/20: Patient is a pleasant 69-year-old quadriplegic gentleman who was admitted to the hospital on April 22, 2020 for acute kidney injury and shortn ess of breath. Shortness of breath was most likely secondary to combination of pulmonary hypertension and mucous plugging. 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 He was seen by pulmonary and nephrology services. He had a tracheostomy prior to admission. He underwent bronchoscopy and was found to have distal tracheal mucous plugging. The mucous plug was removed. Renal ultrasound was limited but did not show mass or hydronephrosis. The right kidney was not evaluated on this exam. 2D echocardiogram was technically difficult examination but EF appeared to be normal. His renal function stabilized. He has been cleared for discharge by nephrology service. In terms of the pancreatic mass, he could not get CT scan with contrast because of renal insufficiency. I ordered MRI to evaluate the mass back the patient would not fit in the MRI machine at the [facility]. He will need to have the study done at [facility], since he will be able to fit in the machine there. I have asked him to follow-up with primary care provider and have the test done at [facility]. He does continue to have high oxygen requirements and therefore he is being evaluated for LTAC versus rehab. Case management is involved in this process. 05/06: No new events overnight. Urine output seems to be better. Generalized edema still present. Creatinine level improving. 05/07: The patient is very edematous. I have started Bumex IV twice daily. Since his blood pressure is marginal, diltiazem has been held. We will continue to watch his heart rate. He is on Coreg. PT and OT evaluation. LTAC referral. Hosp A/P (1) SWETHA (acute kidney injury) Code(s): N17.9 - ACUTE KIDNEY FAILURE, UNSPECIFIED Status: Acute (2) SOB (shortness of breath) Code(s): R06.02 - SHORTNESS OF BREATH Status: Acute (3) Pulmonary hypertension Code(s): I27.20 - PULMONARY HYPERTENSION, UNSPECIFIED Status: Chronic (4) Quadriplegia Code(s): G82.50 - QUADRIPLEGIA, UNSPECIFIED Status: Chronic (5) Pancreatic mass Status: Acute (6) Atrial fibrillation Code(s): I48.91 - UNSPECIFIED ATRIAL FIBRILLATION Status: Chronic Qualifiers: Atrial fibrillation type: paroxysmal Qualified Code(s): I48.0 - Paroxysmal atrial fibrillation (7) Chronic diastolic (congestive) heart failure Code(s): I50.32 - CHRONIC DIASTOLIC (CONGESTIVE) HEART FAILURE Status: Acute (8) Pleural effusion Code(s): J90 - PLEURAL EFFUSION, NOT ELSEWHERE CLASSIFIED Status: Acute (9) Acute metabolic encephalopathy Code(s): G93.41 - METABOLIC ENCEPHALOPATHY Status: Acute
--- NOTE | 2020-05-07 16:07 | PRG ---
DATE OF SERVICE: 05/07/2020 SUBJECTIVE: The patient was seen and examined at bedside. No nausea or vomiting. No shortness of breath. Resting comfortably. OBJECTIVE: GENERAL: This is a well-built male, in no apparent distress. VITAL SIGNS: Temperature 97.2, pulse 120, respiratory rate 24, blood pressure 122/77. HEENT: Atraumatic, normocephalic. NECK: Supple. CV: S1 and S2. Regular. RESPIRATORY: Clear. GI: Abdomen is soft. MUSCULOSKELETAL: 2+ edema. DERMATOLOGIC: No skin rash. NEUROLOGIC: Alert, awake. PSYCHIATRIC: Mood and affect normal. LABORATORY DATA: Potassium 3.7, sodium 146, BUN 65, creatinine is 2.2. ASSESSMENT AND PLAN: 1. Acute kidney injury on chronic kidney disease. Renal function getting better. Good urine output with diuresis and cardiorenal syndrome, on diuretics now. 2. Hypernatremia, most likely from diuretics. 3. Cardiorenal syndrome. 4. Hypocalcemia, better. 5. Anemia. 6. Severe pulmonary hypertension. 7. Altered mentation better. 8. Acute hypoxic respiratory failure secondary to fluid overload. 9. Fluid overload. 10. Obesity. 11. Overall, labs are better. We will continue to monitor. Avoid nephrotoxins. Recommend cautious use of diuretics with close monitoring of electrolytes and renal function. We will follow. Job ID: [id number]
[2020-05-07] MEDS: Polyethylene Glycol 3350 17 GM Packet PO PRN (16:10)
--- NOTE | 2020-05-07 19:35 | PRG ---
DATE OF SERVICE: 05/07/2020 SUBJECTIVE: Be Lam remains critically ill. OBJECTIVE: VITAL SIGNS: FiO2 is at 50%, heart rate is 103, blood pressure 116/80, respiratory rates in the 20s to low 30s. LUNGS: Remarkable for rhonchi bilaterally. HEART: Regular rhythm. ABDOMEN: Soft. EXTREMITIES: Without any change. LABORATORY DATA: White count 6.8, hemoglobin 14.2, platelets 80,000. Sodium 146, potassium 3.7, chloride 106, bicarb 28, BUN 65, and creatinine 2.25. IMPRESSION: 1. Status post quadriplegia, chronic respiratory failure, and a tracheostomy in place. 2. Chronic kidney disease, which appears to be reasonably stable. 3. Chronic muscle dysfunction secondary to his quadriplegia, leading him to become more and more ventilator dependent. PLAN: Continue supportive care. Job ID: [id number]
[2020-05-07] MEDS: Atorvastatin Calcium 20 MG TAB PO SCH (20:34)
[2020-05-08] MEDS ORDERED: Sodium Chloride 0.9% 30 ML ONE (03:33)
[2020-05-08 06:00] LABS: #Basophils 0.1 thou/uL (0.0-0.2); #Eosinphils 0.1 thou/uL (0.0-0.7); #Lymphocytes 1.6 thou/uL (1.20-3.40); #Monocytes 0.7 thou/uL (0.11-0.59); #Neutrophils 5.8 thou/uL (1.40-6.50); %Basophils 0.6 % (0.0-1.0); %Lymphocytes 19.2 % (21.0-51.0); %Monocytes 8.9 % (0.0-10.0); %Neutrophils 70.3 % (42.0-75.0); Hemoglobin 14.1 g/dL (14.0-18.0); Mean Corpuscular HGB CONC 31.5 g/dL (32.0-36.0); Mean Corpuscular Hemoglobin 29.2 pg (27.0-31.0); Mean Corpuscular Volume 92.8 fL (78.0-98.0); Mean Platelet Volume 11.9 fL (7.4-10.4); Platelet Count 76 thou/uL (130-400); RBC Distribution Width 16.2 % (11.5-14.5); Red Blood Cell (RBC) Count 4.82 mill/uL (4.70-6.10); White Blood Cell (WBC) Count 8.3 thou/uL (4.8-10.8)
[2020-05-08 06:13] LABS: Anion Gap 13 mmol/L (10-20); BUN (Urea Nitrogen) 62 mg/dL (8.4-25.7); Calc. Creatinine Clearance 56 mL/min (70-130); Calcium 8.5 mg/dL (7.8-10.44); Carbon Dioxide 33 mmol/L (23-31); Chloride 104 mmol/L (98-107); Glucose 112 mg/dL (80-115); Potassium 3.6 mmol/L (3.5-5.1); Sodium 146 mmol/L (136-145)
[2020-05-08] MEDS: Bumetanide 1 MG/4 ML VIAL IVP SCH (06:44)
--- NOTE | 2020-05-08 07:54 | PRG ---
DATE OF SERVICE: 05/08/2020 SUBJECTIVE: The patient is currently on a trach collar and actually doing quite well. He is more verbal today than he has been. His x-ray actually shows both lungs have fairly good aeration. He has atelectasis versus pleural effusion in the bases. OBJECTIVE: VITAL SIGNS: Temperature 97.3, pulse 120, blood pressure 133/91, O2 saturation in the low 90s. Total intake 1430, output 1046. HEENT: Unremarkable. NECK: Trach in good position. LUNGS: Clear anteriorly bilaterally. CARDIOVASCULAR: S1 and S2. Regular. ABDOMEN: Soft. EXTREMITIES: Trace edema. LABORATORY DATA: Sodium 146, potassium 3.6, chloride 104, CO2 of 33, BUN 62, creatinine 2.3, glucose 112. White blood cell count 8.3, hematocrit 44.7, and platelet count 76. ASSESSMENT: 1. Chronic respiratory failure secondary to quadriplegia. 2. Acute renal failure. PLAN: He looks good today, probably still needs either LTAC or rehab placement. This is the first day that he has looked himself since he has been here, so I am hopeful he can get back to his baseline. I have reviewed the orders on his chart. My only concern is the use of Eliquis with his low platelet count. They will have to watch closely. Job ID: [id number]
--- NOTE | 2020-05-08 07:59 | RAD ---
Portable frontal chest radiograph: 05/08/2020 COMPARISON: 05/07/2020 HISTORY: Pneumonia FINDINGS: Stable tracheostomy tube. Stable enlargement of the cardiac silhouette with stable dense op acity in the perihilar regions and both lung bases suggesting a combination of pulmonary vascular congestion, airspace disease, and pleural fluid. IMPRESSION: No significant interval change.
[2020-05-08] MEDS: Apixaban 2.5 MG TAB PO SCH ×2 (09:25→21:34)
[2020-05-08] MEDS: Docusate 100 MG CAP PO SCH (09:25)
[2020-05-08] MEDS: Pantoprazole 40 MG VIAL IVP SCH (09:26)
[2020-05-08] MEDS ORDERED: Aspirin Chewable 81 MG TAB ONE (09:28)
[2020-05-08] MEDS: Carvedilol 6.25 MG TAB PO SCH ×2 (09:28→21:35)
[2020-05-08] MEDS: Aspirin Chewable 81 MG TAB PO SCH (09:28)
[2020-05-08] MEDS ORDERED: Carvedilol 6.25 MG TAB ONE (09:28)
[2020-05-08] MEDS ORDERED: Potassium Chloride 20 MEQ TAB PO SCH (10:15)
[2020-05-08] MEDS: Bumetanide 1 MG TAB PO SCH (15:36)
[2020-05-08] MEDS: Polyethylene Glycol 3350 17 GM Packet PO PRN (15:36)
--- NOTE | 2020-05-08 16:09 | PDOC.HOSPP ---
- Subjective Encounter Date: 05/08/20 Subjective: The patient has no new complaints today. Fluid balance has been negative since yesterday. - Objective Vital Signs & Weight: Vital Signs (12 hours) Temp Pulse Pulse Resp BP BP Pulse Ox 05/08/20 14:40 108 H 20 94 L 05/08/20 13:58 105 H 107/80 05/08/20 11:53 97.5 F L 05/08/20 10:43 111 H 20 95 05/08/20 09:28 129/78 05/08/20 08:10 98.1 F 05/08/20 07:20 91 L 05/08/20 07:01 103 H 24 H 95 05/08/20 06:46 95 Weight Admit Weight 265 lb 14.04 oz Weight 4.624 oz Most Recent Monitor Data Heart Rate from ECG 112 NIBP 99/65 NIBP BP-Mean 76 Respiration from ECG 30 SpO2 91 I&O: 05/07/20 05/08/20 05/09/20 06:59 06:59 06:59 Intake Total 420 1430 840 Output Total 1225 1046 649 Balance -805 384 191 Result Diagrams: 05/08/20 05:40 05/08/20 05:40 Hospitalist ROS - Medication Medications: Active Medications Generic Name Dose Route Start Last Admin Trade Name Freq PRN Reason Stop Dose Admin Acetaminophen 650 mg 04/22/20 12:19 05/03/20 21:40 Acetaminophen 325 Mg Tab PO 650 mg Q4H PRN Administration Headache/Fever/Mild Pain (1-3) Albuterol/Ipratropium 3 ml 04/28/20 18:30 05/08/20 14:40 Ipratropium/Albuterol Sulfate 3 Ml Neb NEB 3 ml [id number] CHAPARRITA Administration Apixaban 2.5 mg 04/27/20 09:00 05/08/20 09:25 Apixaban 2.5 Mg Tab PO 2.5 mg BID CHAPARRITA Administration Aspirin 81 mg 04/23/20 09:00 05/08/20 09:28 Aspirin Chewable 81 Mg Tab PO 81 mg DAILY CHAPARRITA Administration Atorvastatin Calcium 20 mg 04/22/20 21:00 05/07/20 20:34 Atorvastatin Calcium 20 Mg Tab PO 20 mg HS CHAPARRITA Administration Bumetanide 1 mg 05/08/20 16:30 05/08/20 15:36 Bumetanide 1 Mg Tab PO 1 mg BID-AC CHAPARRITA Administration Carvedilol 6.25 mg 05/03/20 09:00 05/08/20 09:28 Carvedilol 6.25 Mg Tab PO 6.25 mg BID CHAPARRITA Administration Docusate Sodium 100 mg 05/02/20 09:00 05/08/20 09:25 Docusate 100 Mg Cap PO 100 mg DAILY CHAPARRITA Administration Pantoprazole Sodium 40 mg 04/24/20 09:00 05/08/20 09:26 Pantoprazole 40 Mg Vial IVP 40 mg DAILY CHAPARRITA Administration Polyethylene Glycol 17 gm 05/07/20 14:16 05/08/20 15:36 Polyethylene Glycol 3350 17 Gm Packet PO 17 gm DAILYPRN PRN Administration Constipation Sodium Chloride 10 ml 04/26/20 22:00 05/04/20 09:27 Flush - Normal Saline 10 Ml Syringe IVF 10 ml PRN PRN Administration Saline Flush Hospitalist Exam Vitals: Vital Signs (12 hours) Temp Pulse Pulse Resp BP BP Pulse Ox 05/08/20 14:40 108 H 20 94 L 05/08/20 13:58 105 H 107/80 05/08/20 11:53 97.5 F L 05/08/20 10:43 111 H 20 95 05/08/20 09:28 129/78 05/08/20 08:10 98.1 F 05/08/20 07:20 91 L 05/08/20 07:01 103 H 24 H 95 05/08/20 06:46 95 Weight Admit Weight 265 lb 14.04 oz Weight 4.624 oz Most Recent Monitor Data Heart Rate from ECG 112 NIBP 99/65 NIBP BP-Mean 76 Respiration from ECG 30 SpO2 91 General Appearance: awake alert ENT: normocephalic atraumatic Neck: supple Heart: RRR Respiratory: normal chest expansion, no tachypnea Extremities: no cyanosis, no clubbing, 2+ LE edema Hosp A/P - Plan 05/05/20: Patient is a pleasant 69-year-old quadriplegic gentleman who was admitted to the hospital on April 22, 2020 for acute kidney injury and shortness of breath. Shortness of breath was most likely secondary to combination of pulmonary hypertension and mucous plugging. 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 He was seen by pulmonary and nephrology services. He had a tracheostomy prior to admission. He underwent bronchoscopy and was found to have distal tracheal mucous plugging. The mucous plug was removed. Renal ultrasound was limited but did not show mass or hydronephrosis. The right kidney was not evaluated on this exam. 2D echocardiogram was technically difficult examination but EF appeared to be normal. His renal function stabilized. He has been cleared for discharge by nephrology service. In terms of the pancreatic mass, he could not get CT scan with contrast because of renal insufficiency. I ordered MRI to evaluate the mass back the patient would not fit in the MRI machine at the [facility]. He will need to have the study done at [facility], since he will be able to fit in the machine there. I have asked him to follow-up with primary care provider and have the test done at [facility]. He does continue to have high oxygen requirements and therefore he is being evaluated for LTAC versus rehab. Case management is involved in this process. 05/06: No new events overnight. Urine output seems to be better. Generalized edema still present. Creatinine level improving. 05/07: The patient is very edematous. I have started Bumex IV twice daily. Since his blood pressure is marginal, diltiazem has been held. We will continue to watch his heart rate. He is on Coreg. PT and OT evaluation. LTAC referral. 05/08: Negative fluid balance over the past 24 hours. His generalized edema is improving. Decrease Bumex to 1 mg orally twice daily. Creatinine level is stable. His blood pressure is better than yesterday. Heart rate is controlled. He is accepted to rehab once clinically stable. Hosp A/P (1) SWETHA (acute kidney injury) Code(s): N17.9 - ACUTE KIDNEY FAILURE, UNSPECIFIED Status: Acute (2) SOB (shortness of breath) Code(s): R06.02 - SHORTNESS OF BREATH Status: Acute (3) Pulmonary hypertension Code(s): I27.20 - PULMONARY HYPERTENSION, UNSPECIFIED Status: Chronic (4) Quadriplegia Code(s): G82.50 - QUADRIPLEGIA, UNSPECIFIED Status: Chronic (5) Pancreatic mass Status: Acute (6) Atrial fibrillation Code(s): I48.91 - UNSPECIFIED ATRIAL FIBRILLATION Status: Chronic Qualifiers: Atrial fibrillation type: paroxysmal Qualified Code(s): I48.0 - Paroxysmal atrial fibrillation (7) Chronic diastolic (congestive) heart failure Code(s): I50.32 - CHRONIC DIASTOLIC (CONGESTIVE) HEART FAILURE Status: Acute (8) Pleural effusion Code(s): J90 - PLEURAL EFFUSION, NOT ELSEWHERE CLASSIFIED Status: Acute (9) Acute metabolic encephalopathy Code(s): G93.41 - METABOLIC ENCEPHALOPATHY Status: Acute
[2020-05-08] MEDS ORDERED: Albumin 5% 500 ML ONE (18:29)
[2020-05-08] MEDS ORDERED: Albumin 5% 0 ML ONE (18:30)
[2020-05-08] MEDS ORDERED: Sodium Chloride 0.9% 20 ML ONE (18:35)
[2020-05-08] MEDS ORDERED: Albumin 25% 25 GM/100 ML BOT IVPB SCH (20:00)
[2020-05-08] MEDS: Atorvastatin Calcium 20 MG TAB PO SCH (21:34)
[2020-05-09] MEDS: Albumin 25% 25 GM/100 ML BOT IVPB SCH ×3 (00:53→15:00)
[2020-05-09] MEDS ORDERED: Sodium Chloride 0.9% 40 ML ONE (02:49)
[2020-05-09 07:21] LABS: #Eosinphils 0.1 thou/uL (0.0-0.7); #Lymphocytes 1.2 thou/uL (1.20-3.40); #Monocytes 0.6 thou/uL (0.11-0.59); %Basophils 0.4 % (0.0-1.0); %Eosinophils 1.1 % (0.0-10.0); %Lymphocytes 20.5 % (21.0-51.0); %Monocytes 9.5 % (0.0-10.0); %Neutrophils 68.4 % (42.0-75.0); Anion Gap 13 mmol/L (10-20); BUN (Urea Nitrogen) 57 mg/dL (8.4-25.7); Calc. Creatinine Clearance 0 mL/min (70-130); Calcium 8.4 mg/dL (7.8-10.44); Carbon Dioxide 33 mmol/L (23-31); Chloride 104 mmol/L (98-107); Glucose 105 mg/dL (80-115); Hemoglobin 13.2 g/dL (14.0-18.0); Mean Corpuscular HGB CONC 31.8 g/dL (32.0-36.0); Mean Corpuscular Hemoglobin 29.8 pg (27.0-31.0); Mean Corpuscular Volume 93.7 fL (78.0-98.0); Mean Platelet Volume 7.2 fL (7.4-10.4); Platelet Count 62 thou/uL (130-400); Potassium 3.6 mmol/L (3.5-5.1); RBC Distribution Width 16.6 % (11.5-14.5); Red Blood Cell (RBC) Count 4.44 mill/uL (4.70-6.10); Sodium 146 mmol/L (136-145); White Blood Cell (WBC) Count 5.8 thou/uL (4.8-10.8)
--- NOTE | 2020-05-09 07:33 | RAD ---
Exam: Chest one view HISTORY:Pneumonia Comparison: 05/08/2020 FINDINGS: Lines and tubes: Stable tracheostomy Cardiac silhouette:Stable cardiomegaly Aorta: Unremarkable Pulmonary vessels: Normal Costophrenic angles: Stable bilateral effusion LUNGS: Stable multi lobar interstitial and alveolar opacities. Pneumothorax: None Osseous abnormalities: None IMPRESSION: No significant interval change.
--- NOTE | 2020-05-09 07:55 | PRG ---
DATE OF SERVICE: 05/09/2020 SUBJECTIVE: The patient remains on mechanical ventilation and trach collar during the day. He looks stable. OBJECTIVE: VITAL SIGNS: Temperature 96.8, pulse 108 to 124, and blood pressure 139/105. HEENT: Unchanged. NECK: Trach with some bloody secretions. CARDIAC: S1 and S2. Regular. ABDOMEN: Soft and nontender. EXTREMITIES: Edematous. LABORATORY DATA: His labs could not be reviewed because [employer] was down earlier this morning. This will be checked later. His chest x-ray shows extremely rotated film, looks like fairly good aeration in both lungs, complains of cardiomegaly. ASSESSMENT AND PLAN: Status largely unchanged. The patient continues to require fairly close care for his ventilatory needs and quadriplegia. My hope is that he can be placed in a detention facility or LTAC as a transition between here and home, looks like he was denied at our local rehab facility, so the telephonic case manager will have to keep looking. Job ID: [id number]
--- NOTE | 2020-05-09 08:11 | PRG ---
DATE OF SERVICE: 05/08/2020 SUBJECTIVE: The patient is seen and examined at bedside. No complaints. No fever or chills. No shortness of breath reported. OBJECTIVE: GENERAL: This is a well-built male, in no apparent distress. VITAL SIGNS: Temperature 97.5, pulse , respiratory rate 20, and blood pressure 107/80. HEENT: Atraumatic, normocephalic. NECK: Supple. Trach present. CV: S1 and S2 heard. RESPIRATORY: Clear. GASTROINTESTINAL: Abdomen is soft. MUSCULOSKELETAL: 1+ edema. DERMATOLOGIC: No skin rash. NEUROLOGICAL: Awake. LABORATORY DATA: Potassium 3.6, sodium 146, BUN is 62, and creatinine is 2.28. ASSESSMENT AND PLAN: 1. Acute kidney injury on chronic kidney disease, stage 3. Renal function seems to be stable, slightly worse. I did talk to Dr. Hutchison and plan is to change his diuretics to p.o. Follow with Pulmonology also. 2. Hypernatremia, most likely reduce the diuretic dose. Might need free water supplementation. 3. Alkalosis secondary to diuresis. 4. Cardiorenal syndrome. 5. Hypercalcemia. 6. Severe pulmonary hypertension. 7. Altered mentation, better. 8. Acute hypoxic respiratory failure, seems to be stable. 9. Fluid overload. 10. Obesity. Hypernatremia and alkalosis suggests some contraction alkalosis happening and I would reduce the diuretic dose to p.o. and keep it at Bumex 1 mg p.o. b.i.d. We will continue to follow. Avoid nephrotoxins. Job ID: [id number]
[2020-05-09] MEDS: Pantoprazole 40 MG VIAL IVP SCH (08:46)
[2020-05-09] MEDS: Bumetanide 1 MG TAB PO SCH ×2 (08:46→15:42)
[2020-05-09] MEDS: Docusate 100 MG CAP PO SCH (08:46)
[2020-05-09] MEDS: Aspirin Chewable 81 MG TAB PO SCH (08:50)
[2020-05-09] MEDS: Apixaban 2.5 MG TAB PO SCH ×2 (08:50→21:05)
[2020-05-09] MEDS ORDERED: Carvedilol 6.25 MG TAB ONE (08:59)
[2020-05-09] MEDS: Carvedilol 6.25 MG TAB PO SCH ×2 (09:00→21:05)
[2020-05-09] MEDS ORDERED: Sodium Chloride 0.9% 10 ML ONE ×2 (09:03→18:55)
--- NOTE | 2020-05-09 16:00 | PDOC.HOSPP ---
- Subjective Encounter Date: 05/09/20 Subjective: Well appearing and eager to go home - Objective Vital Signs & Weight: Vital Signs (12 hours) Temp Pulse Resp BP BP Pulse Ox 05/09/20 15:51 97.3 F L 05/09/20 14:31 125 H 20 89 L 05/09/20 12:00 98.6 F 05/09/20 10:43 122 H 20 90 L 05/09/20 10:06 142/98 H 05/09/20 09:00 133/95 H 05/09/20 08:00 97.5 F L 05/09/20 07:41 93 L 05/09/20 06:55 120 H 20 92 L Weight Admit Weight 265 lb 14.04 oz Weight 287 lb 14.779 oz Most Recent Monitor Data Heart Rate from ECG 118 NIBP 142/101 NIBP BP-Mean 114 Respiration from ECG 28 SpO2 89 I&O: 05/08/20 05/09/20 05/10/20 06:59 06:59 06:59 Intake Total 1430 1190 210 Output Total 1046 832 330 Balance 384 358 -120 Result Diagrams: 05/09/20 03:34 05/09/20 03:34 Hospitalist ROS - Medication Medications: Active Medications Generic Name Dose Route Start Last Admin Trade Name Freq PRN Reason Stop Dose Admin Acetaminophen 650 mg 04/22/20 12:19 05/03/20 21:40 Acetaminophen 325 Mg Tab PO 650 mg Q4H PRN Administration Headache/Fever/Mild Pain (1-3) Albuterol/Ipratropium 3 ml 04/28/20 18:30 05/09/20 14:31 Ipratropium/Albuterol Sulfate 3 Ml Neb NEB 3 ml [id number] CHAPARRITA Administration Apixaban 2.5 mg 04/27/20 09:00 05/09/20 08:50 Apixaban 2.5 Mg Tab PO Not Given BID CHAPARRITA Aspirin 81 mg 04/23/20 09:00 05/09/20 08:50 Aspirin Chewable 81 Mg Tab PO Not Given DAILY CHAPARRITA Atorvastatin Calcium 20 mg 04/22/20 21:00 05/08/20 21:34 Atorvastatin Calcium 20 Mg Tab PO 20 mg HS CHAPARRITA Administration Bumetanide 1 mg 05/08/20 16:30 05/09/20 15:42 Bumetanide 1 Mg Tab PO 1 mg BID-AC CHAPARRITA Administration Carvedilol 6.25 mg 05/03/20 09:00 05/09/20 09:00 Carvedilol 6.25 Mg Tab PO 6.25 mg BID CHAPARRITA Administration Docusate Sodium 100 mg 05/02/20 09:00 05/09/20 08:46 Docusate 100 Mg Cap PO 100 mg DAILY CHAPARRITA Administration Pantoprazole Sodium 40 mg 04/24/20 09:00 05/09/20 08:46 Pantoprazole 40 Mg Vial IVP 40 mg DAILY CHAPARRITA Administration Polyethylene Glycol 17 gm 05/07/20 14:16 05/08/20 15:36 Polyethylene Glycol 3350 17 Gm Packet PO 17 gm DAILYPRN PRN Administration Constipation Sodium Chloride 10 ml 04/26/20 22:00 05/08/20 18:36 Flush - Normal Saline 10 Ml Syringe IVF 10 ml PRN PRN Administration Saline Flush Hospitalist Exam Vitals: Vital Signs (12 hours) Temp Pulse Resp BP BP Pulse Ox 05/09/20 15:51 97.3 F L 05/09/20 14:31 125 H 20 89 L 05/09/20 12:00 98.6 F 05/09/20 10:43 122 H 20 90 L 05/09/20 10:06 142/98 H 05/09/20 09:00 133/95 H 05/09/20 08:00 97.5 F L 05/09/20 07:41 93 L 05/09/20 06:55 120 H 20 92 L Weight Admit Weight 265 lb 14.04 oz Weight 287 lb 14.779 oz Most Recent Monitor Data Heart Rate from ECG 118 NIBP 142/101 NIBP BP-Mean 114 Respiration from ECG 28 SpO2 89 General Appearance: NAD Eye: PERRL ENT: normocephalic atraumatic Neck: supple, symmetric Heart: RRR, no murmur Respiratory: CTAB, no wheezes Gastrointestinal: soft, non-tender, non-distended Extremities: no cyanosis Skin: normal turgor Hosp A/P (1) Acute and chronic respiratory failure with hypoxia Code(s): J96.21 - ACUTE AND CHRONIC RESPIRATORY FAILURE WITH HYPOXIA Status: Acute (2) Chronic diastolic (congestive) heart failure Code(s): I50.32 - CHRONIC DIASTOLIC (CONGESTIVE) HEART FAILURE Status: Acute (3) Pancreatic mass Status: Acute - Plan plan for today 2/3 His labs indicating volume contraction, Bumex was changed to PO. SW is searching for an accepting LTAC versus going home if his vent is functioning and staying stable.
[2020-05-09] MEDS ORDERED: Diphenoxylate HCl/Atropine Tablet PO PRN (18:03)
[2020-05-09] MEDS: Atorvastatin Calcium 20 MG TAB PO SCH (21:05)
--- NOTE | 2020-05-10 06:13 | PRG ---
DATE OF SERVICE: 05/09/2020 SUBJECTIVE: The patient was seen and examined at the bedside. at the bedside. He denies any complaints. was concerned that he was declined from the local rehab and they are exploring options. The patient remains fluid overloaded. He made less amount of urine yesterday IV diuretics. Also on IV albumin. OBJECTIVE: GENERAL: This is a well-built male, in no apparent distress. VITAL SIGNS: Temperature 98.6, pulse 122, respiratory rate 34, and blood pressure 126/98. HEENT: Atraumatic, normocephalic. NECK: Trach present. CV: S1 and S2 heard. RESPIRATORY: Clear. GASTROINTESTINAL: Abdomen is soft. MUSCULOSKELETAL: 2+ edema. DERMATOLOGIC: No skin rash. NEUROLOGIC: Alert, awake. LABORATORY DATA: Sodium 146, potassium 3.6, BUN is 57, and creatinine is 2.1. ASSESSMENT AND PLAN: 1. Acute kidney injury on chronic kidney disease, stage 3. Renal function is stable. 2. Chronic edema. 3. Cardiorenal syndrome. 4. Hypocalcemia. 5. Altered mentation. 6. Acute hypoxic respiratory failure. 7. Obesity. Overall, labs are better. Continue on p.o. diuretics with close monitoring of labs. We will follow. Job ID: [id number]
--- NOTE | 2020-05-10 07:51 | PRG ---
DATE OF SERVICE: 05/10/2020 SUBJECTIVE: The patient is doing somewhat better. He is in good spirits today. He is continuing ventilation at night and trach collar during the day. OBJECTIVE: VITAL SIGNS: Temperature 97.9, pulse 121, and blood pressure 158/114. HEENT: Unchanged. NECK: Trach in good position. LUNGS: Have equal breath sounds bilaterally. CARDIAC: S1 and S2. Regular. ABDOMEN: Soft. EXTREMITIES: Trace edema. LABORATORY DATA: I do not see any new labs today, but they were ordered. ASSESSMENT: 1. Chronic respiratory failure, requiring mechanical ventilation. 2. Acute on chronic renal insufficiency. PLAN: Anticipating that his will bring the Trilogy ventilator up today, so that we can test it and make sure it is working okay before deciding where he goes next. Job ID: [id number]
[2020-05-10] MEDS: Bumetanide 1 MG TAB PO SCH (07:53)
[2020-05-10] MEDS ORDERED: Aspirin Chewable 81 MG TAB ONE (08:02)
[2020-05-10] MEDS: Aspirin Chewable 81 MG TAB PO SCH (08:03)
[2020-05-10] MEDS: Carvedilol 6.25 MG TAB PO SCH ×2 (08:03→20:09)
[2020-05-10] MEDS ORDERED: Carvedilol 6.25 MG TAB ONE ×3 (08:03→23:15)
[2020-05-10] MEDS: Apixaban 2.5 MG TAB PO SCH ×2 (08:03→20:10)
[2020-05-10] MEDS: Docusate 100 MG CAP PO SCH (08:03)
[2020-05-10] MEDS: Pantoprazole 40 MG VIAL IVP SCH (08:04)
[2020-05-10 11:01] LABS: Hemoglobin 13.6 g/dL (14.0-18.0); Mean Corpuscular Volume 93.4 fL (78.0-98.0); Mean Platelet Volume 13.6 fL (7.4-10.4); Platelet Count 31 thou/uL (130-400); RBC Distribution Width 16.3 % (11.5-14.5); Red Blood Cell (RBC) Count 4.69 mill/uL (4.70-6.10); White Blood Cell (WBC) Count 5.3 thou/uL (4.8-10.8)
[2020-05-10 11:47] LABS: Band 2 % (5-11); Eosinophils 1 % (0-10); Lymphocytes 28 % (21-51); MDiff Complete? YES; Monocytes 8 % (0-10); Neutrophil 61 % (42-75); Nucleated RBC 1 % (0); Platelet Morphology Comment Appears Decreased; Polychromasia SLIGHT = 2-3 cells (100X) (0-2/hpf)
[2020-05-10 12:59] LABS: Anion Gap 27 mmol/L (10-20); BUN (Urea Nitrogen) 57 mg/dL (8.4-25.7); Calc. Creatinine Clearance 56 mL/min (70-130); Calcium 8.5 mg/dL (7.8-10.44); Carbon Dioxide 20 mmol/L (23-31); Chloride 111 mmol/L (98-107); Glucose 120 mg/dL (80-115); Potassium 6.1 mmol/L (3.5-5.1); Sodium 152 mmol/L (136-145)
[2020-05-10] MEDS ORDERED: Dextrose 50% Abboject 50 ML SYRINGE ONE (13:20)
[2020-05-10] MEDS ORDERED: LOKELMA 10 GM PACKET PO SCH (13:30)
[2020-05-10] MEDS ORDERED: Insulin Regular 300 UNITS/3 ML VIAL IVP SCH (13:30)
[2020-05-10] MEDS ORDERED: Dextrose 5% in Water 1,000 ML IV SCH (13:30)
[2020-05-10] MEDS ORDERED: Calcium Gluc 4.6 MEQ/10 ML (100 MG/ML) SLOW IVP SCH (13:30)
[2020-05-10] MEDS ORDERED: LOKELMA 5 GM PACKET PO SCH ×2 (13:45→21:00)
[2020-05-10] MEDS ORDERED: Dextrose 50% Abboject 50 ML SYRINGE SLOW IVP SCH (13:45)
[2020-05-10 17:45] LABS: Anion Gap 15 mmol/L (10-20); BUN (Urea Nitrogen) 53 mg/dL (8.4-25.7); Calc. Creatinine Clearance 59 mL/min (70-130); Calcium 8.4 mg/dL (7.8-10.44); Carbon Dioxide 28 mmol/L (23-31); Chloride 106 mmol/L (98-107); Glucose 115 mg/dL (80-115); Potassium 3.8 mmol/L (3.5-5.1); Sodium 145 mmol/L (136-145)
--- NOTE | 2020-05-10 18:11 | PRG ---
DATE OF SERVICE: 05/10/2020 SUBJECTIVE: The patient is seen and examined at the bedside. was at the bedside this morning. The patient was also checked this evening. Apparently, when his labs came back this afternoon, his potassium was elevated, hypernatremia. He had few runs of ventricular tachycardia also. The patient is making around 20 to 30 mL of urine per hour. Denies any symptoms. No complaints. OBJECTIVE: GENERAL: This is a well-built male, in no apparent distress. VITAL SIGNS: Temperature 97.7, pulse 170, respiratory rate , blood pressure 103/80. HEENT: Atraumatic and normocephalic. NECK: With trach collar. CV: S1 and S2 heard. RESPIRATORY: Clear. GI: Abdomen is soft. MUSCULOSKELETAL: 2+ edema. DERMATOLOGIC: No skin rash. NEUROLOGIC: . LABORATORY DATA: Potassium is 6.1, BUN is 57, creatinine is 2.26. ASSESSMENT AND PLAN: 1. Acute kidney injury on chronic kidney disease stage 3. Labs actually stable, making stable amount of urine. 2. Chronic edema. 3. Cardiorenal syndrome with severe pulmonary hypertension. 4. Hypocalcemia. 5. Altered mentation, better. 6. Hypernatremia. We will add free water. Recheck labs later on. 7. Hyperkalemia. We will have Lokelma. We will stop diuretics. 8. Acidosis. 9. Cardiac arrhythmias. 10. Obesity. Plan to stop diuretics given the hypernatremia and acidosis. We will start on D5 water at 50 mL/h and also start Lokelma. The patient also given D50 and insulin 10 units and also getting calcium gluconate given his runs of ventricular tachycardia. We will recheck labs later in the afternoon and further decision will be made based on the lab results. We will follow. Job ID: [id number]
--- NOTE | 2020-05-10 18:58 | PDOC.HOSPP ---
- Subjective Subjective: no change in his mental status - Objective Vital Signs & Weight: Vital Signs (12 hours) Temp Pulse Pulse Pulse Resp BP BP 05/10/20 16:00 97.7 F 05/10/20 14:32 123 H 28 H 05/10/20 14:14 125 H 119 H 146/89 H 05/10/20 12:00 96.8 F L 05/10/20 10:30 112 H 25 H 05/10/20 08:03 133/110 H 05/10/20 08:00 98.2 F 05/10/20 07:39 124 H 26 H BP Pulse Ox Pulse Ox Pulse Ox 05/10/20 16:00 05/10/20 14:32 05/10/20 14:14 153/91 H 91 L 92 L 05/10/20 12:00 05/10/20 10:30 05/10/20 08:03 05/10/20 08:00 94 L 05/10/20 07:39 93 L Weight Admit Weight 265 lb 14.04 oz Weight 288 lb 4.8 oz Most Recent Monitor Data Heart Rate from ECG 110 NIBP 103/80 NIBP BP-Mean 87 Respiration from ECG 27 SpO2 90 I&O: 05/09/20 05/10/20 05/11/20 06:59 06:59 06:59 Intake Total 1190 530 585 Output Total 832 820 305 Balance 358 -290 280 Result Diagrams: 05/10/20 10:23 05/10/20 17:11 Hospitalist ROS - Medication Medications: Active Medications Generic Name Dose Route Start Last Admin Trade Name Freq PRN Reason Stop Dose Admin Acetaminophen 650 mg 04/22/20 12:19 05/03/20 21:40 Acetaminophen 325 Mg Tab PO 650 mg Q4H PRN Administration Headache/Fever/Mild Pain (1-3) Albuterol/Ipratropium 3 ml 04/28/20 18:30 05/10/20 14:32 Ipratropium/Albuterol Sulfate 3 Ml Neb NEB 3 ml [id number] CHAPARRITA Administration Apixaban 2.5 mg 04/27/20 09:00 05/10/20 08:03 Apixaban 2.5 Mg Tab PO 2.5 mg BID CHAPARRITA Administration Aspirin 81 mg 04/23/20 09:00 05/10/20 08:03 Aspirin Chewable 81 Mg Tab PO 81 mg DAILY CHAPARRITA Administration Atorvastatin Calcium 20 mg 04/22/20 21:00 05/09/20 21:05 Atorvastatin Calcium 20 Mg Tab PO 20 mg HS CHAPARRITA Administration Carvedilol 6.25 mg 05/03/20 09:00 05/10/20 08:03 Carvedilol 6.25 Mg Tab PO 6.25 mg BID CHAPARRITA Administration Docusate Sodium 100 mg 05/02/20 09:00 05/10/20 08:03 Docusate 100 Mg Cap PO 100 mg DAILY CHAPARRITA Administration Hyoscyamine Sulfate 0.125 mg 05/09/20 18:23 05/09/20 18:42 Hyoscyamine Sulfate 0.125 Mg Tab PO 0.125 mg Q4H PRN Administration Indigestion Pantoprazole Sodium 40 mg 04/24/20 09:00 05/10/20 08:04 Pantoprazole 40 Mg Vial IVP 40 mg DAILY CHAPARRITA Administration Polyethylene Glycol 17 gm 05/07/20 14:16 05/08/20 15:36 Polyethylene Glycol 3350 17 Gm Packet PO 17 gm DAILYPRN PRN Administration Constipation Sodium Chloride 10 ml 04/26/20 22:00 05/08/20 18:36 Flush - Normal Saline 10 Ml Syringe IVF 10 ml PRN PRN Administration Saline Flush Hospitalist Exam Vitals: Vital Signs (12 hours) Temp Pulse Pulse Pulse Resp BP BP 05/10/20 16:00 97.7 F 05/10/20 14:32 123 H 28 H 05/10/20 14:14 125 H 119 H 146/89 H 05/10/20 12:00 96.8 F L 05/10/20 10:30 112 H 25 H 05/10/20 08:03 133/110 H 05/10/20 08:00 98.2 F 05/10/20 07:39 124 H 26 H BP Pulse Ox Pulse Ox Pulse Ox 05/10/20 16:00 05/10/20 14:32 05/10/20 14:14 153/91 H 91 L 92 L 05/10/20 12:00 05/10/20 10:30 05/10/20 08:03 05/10/20 08:00 94 L 05/10/20 07:39 93 L Weight Admit Weight 265 lb 14.04 oz Weight 288 lb 4.8 oz Most Recent Monitor Data Heart Rate from ECG 110 NIBP 103/80 NIBP BP-Mean 87 Respiration from ECG 27 SpO2 90 General Appearance: NAD Eye: PERRL, anicteric sclera ENT: normocephalic atraumatic Neck: supple, symmetric Heart: RRR, no murmur Respiratory: CTAB, no wheezes, no rales Gastrointestinal: soft, non-tender, non-distended Hosp A/P (1) Acute and chronic respiratory failure with hypoxia Code(s): J96.21 - ACUTE AND CHRONIC RESPIRATORY FAILURE WITH HYPOXIA Status: Acute (2) Chronic diastolic (congestive) heart failure Code(s): I50.32 - CHRONIC DIASTOLIC (CONGESTIVE) HEART FAILURE Status: Acute (3) Pancreatic mass Status: Acute - Plan plan for today 2/3 His labs indicating volume contraction, Bumex was changed to PO. SW is searching for an accepting LTAC versus going home if his vent is functioning and staying stable. plan for today 2/ he had a run of SVT he was found o be hypernatremic and hyperkalemic , he was [facility]. if he does well on his TRilogy he might be able to go home.
[2020-05-10] MEDS ORDERED: Sodium Chloride 0.9% 40 ML ONE (19:34)
[2020-05-10] MEDS: Atorvastatin Calcium 20 MG TAB PO SCH (20:09)
[2020-05-11] MEDS ORDERED: hydrALAZINE 20 MG/ML VIAL SLOW IVP PRN (02:30)
[2020-05-11] MEDS ORDERED: hydrALAZINE 20 MG/ML VIAL ONE (02:33)
[2020-05-11 06:38] LABS: ALT (SGPT) 8 U/L (8-55); AST (SGOT) 13 U/L (5-34); Albumin 3.2 g/dL (3.4-4.8); Alkaline Phosphatase 43 U/L (40-110); Anion Gap 18 mmol/L (10-20); BUN (Urea Nitrogen) 50 mg/dL (8.4-25.7); Bilirubin, Total 1.9 mg/dL (0.2-1.2); Calc. Creatinine Clearance 63 mL/min (70-130); Calcium 8.5 mg/dL (7.8-10.44); Carbon Dioxide 28 mmol/L (23-31); Chloride 106 mmol/L (98-107); Globulin 2.5 g/dL (2.4-3.5); Glucose 110 mg/dL (80-115); Potassium 3.7 mmol/L (3.5-5.1); Protein, Total 5.7 g/dL (5.8-8.1); Sodium 148 mmol/L (136-145)
[2020-05-11 06:46] LABS: Hemoglobin 13.7 g/dL (14.0-18.0); Mean Corpuscular HGB CONC 31.8 g/dL (32.0-36.0); Mean Corpuscular Hemoglobin 30.1 pg (27.0-31.0); Mean Corpuscular Volume 94.8 fL (78.0-98.0); Mean Platelet Volume 12.9 fL (7.4-10.4); Platelet Count 42 thou/uL (130-400); RBC Distribution Width 16.4 % (11.5-14.5); Red Blood Cell (RBC) Count 4.55 mill/uL (4.70-6.10); White Blood Cell (WBC) Count 6.3 thou/uL (4.8-10.8)
[2020-05-11 07:59] LABS: Band 2 % (5-11); Eosinophils 2 % (0-10); Lymphocytes 16 % (21-51); MDiff Complete? YES; Monocytes 3 % (0-10); Neutrophil 65 % (42-75); Nucleated RBC 3 % (0); Platelet Morphology Comment Appears Decreased; Polychromasia SLIGHT = 2-3 cells (100X) (0-2/hpf); Reactive Lymphocytes 11 % (0-10); Schistocytes SLIGHT = 2-5 cells (100X) (0-1/hpf); Target Cells SLIGHT = 2-5 cells (100X) (0-1/hpf)
[2020-05-11] MEDS ORDERED: Carvedilol 6.25 MG TAB ONE (08:05)
[2020-05-11] MEDS ORDERED: Aspirin Chewable 81 MG TAB ONE (08:06)
[2020-05-11] MEDS: Aspirin Chewable 81 MG TAB PO SCH (08:29)
[2020-05-11] MEDS: Pantoprazole 40 MG VIAL IVP SCH (08:30)
[2020-05-11] MEDS: Apixaban 2.5 MG TAB PO SCH (08:31)
[2020-05-11] MEDS: Docusate 100 MG CAP PO SCH (08:31)
[2020-05-11 08:36] VITALS: BMI 41.2
[2020-05-11] MEDS ORDERED: Bumetanide 1 MG TAB PO SCH (09:00)
--- NOTE | 2020-05-11 10:04 | PRG ---
DATE OF SERVICE: 05/11/2020 SUBJECTIVE: He is doing well from pulmonary standpoint. He uses Trilogy ventilator last night and with the refined settings, did quite well with little alarming. OBJECTIVE: VITAL SIGNS: His temperature is 97.2, pulse 112, blood pressure 118/87, and O2 saturation 91% on trach collar. HEENT: Unremarkable. NECK: No JVD. LUNGS: Clear anteriorly. CARDIAC: S1 and S2, regular. ABDOMEN: Soft. EXTREMITIES: Edematous. LABORATORY DATA: White blood cell count 6.3, hematocrit 43.2, and platelet count 42. Sodium 140, potassium 3.7, chloride 106, CO2 of 28, BUN 50, creatinine 2.0, glucose 110. ASSESSMENT: 1. Chronic respiratory failure secondary to quadriplegia. 2. Acute renal insufficiency. 3. Thrombocytopenia, not explained. PLAN: From a pulmonary standpoint, he can go home on a ventilator. I do not think he needs the intermediate stop at the nursing facility. However, there were some renal issues and thrombocytopenia that probably need to be addressed before allowing him to discharge. Job ID: [id number]
[2020-05-11] MEDS: Carvedilol 6.25 MG TAB PO SCH (13:22)
[2020-05-11 13:23] VITALS: BP 127/86
[2020-05-11] MEDS ORDERED: Fleet Enema 133 ML BOT FS SCH (13:45)
--- NOTE | 2020-05-11 14:58 | PRG ---
DATE OF SERVICE: 05/11/2020 SUBJECTIVE: The patient was seen and examined at the bedside. was at the bedside. The patient might be going home today. He is feeling better today. No shortness breath, no chest pain, and is making around 800 mL of urine. OBJECTIVE: GENERAL: This is a well-built male, in no apparent distress. VITAL SIGNS: Temperature 97.2, pulse 117, respiratory rate 22, blood pressure 123/98. HEENT: Atraumatic, normocephalic. NECK: Trach present. CV: S1 and S2 heard. RESPIRATORY: Clear. GI: Abdomen is soft. MUSCULOSKELETAL: 2+ edema. DERMATOLOGIC: No skin rash. NEUROLOGIC: Awake. LABORATORY DATA: Potassium 3.7, BUN is 50, creatinine is 2.03. ASSESSMENT AND PLAN: 1. Acute kidney injury on chronic kidney disease, stage 3. Lab seems to be stable. 2. Chronic edema. 3. Cardiorenal stenosis. 4. Severe pulmonary hypertension. 5. Hypocalcemia. 6. Altered mentation. 7. Hyperkalemia. 8. Acidosis. 9. Obesity. Labs are stable, but the patient remains chronically edematous. Okay with Bumex 1 mg p.o. daily. The patient is at high risk for sudden complications and also high risk for readmission. Family is aware. Continue close monitor as outpatient. Job ID: [id number]
[2020-05-11 16:07] VITALS: TEMP 97.7
--- NOTE | 2020-05-11 20:14 | PDOC.DS.DS ---
Provider Date of Admission: 04/22/20 13:46 Date of Discharge: 05/11/20 Admitting Provider: Irvin Wong MD Primary Care Physician: MYESHA DA SILVA Course Hospital Course: Discharge diagnosis: 1. Acute kidney injury 2. Shortness of breath secondary to pulmonary hypertension and mucous plugging 3. Hyperkalemia 4. Influenza test negative 5. COVID-19 test negative Hospital course: Patient is a pleasant 69-year-old quadriplegic gentleman who was admitted to the hospital on April 22, 2020 for acute kidney injury and shortness of breath. Shortness of breath was most likely secondary to combination of pulmonary hypertension and mucous plugging. 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 He was seen by pulmonary and nephrology services. He had a tracheostomy prior to admission. He underwent bronchoscopy and was found to have distal tracheal mucous plugging. The mucous plug was removed. Renal ultrasound was limited but did not show mass or hydronephrosis. The right kidney was not evaluated on this exam. 2D echocardiogram was technically diffic ult examination but EF appeared to be normal. His renal function stabilized. He has been cleared for discharge by nephrology service. In terms of the pancreatic mass, he could not get CT scan with contrast because of renal insufficiency. I ordered MRI to evaluate the mass back the patient would not fit in the MRI machine at the [facility]. He will need to have the study done at [facility], since he will be able to fit in the machine there. I have asked him to follow-up with primary care provider and have the test done at [facility]. His platelets were fluctuating on the low side so I stopped his aspirin upon discharge, his Eliquis was adjusted to his kidney function. his lasix was stopped and he was transitioned to Bumex. His respiratory status stabilized and he is being discharged home. all of the above was explained o his and she will follow-up with his PCP for blood work. Discharge destination: Home Total amount of time spent coordinating this discharge: 32 minutes Resuscitation Status: 04/22/20 12:19 Resuscitation Status Routine Resuscitation Status: FULL: Full Resuscitation Lab Results: 05/11/20 05:55 05/11/20 05:42 Abnormal Lab Results - Last 48 hrs 05/10/20 10:23: RBC 4.69 L, Hgb 13.6 L, MCHC 31.0 L, RDW 16.3 H, Plt Count 31 L, MPV 13.6 H, Band Neuts % (Manual) 2 L, Nucleated RBCs # (Man) 1 H, Plt Morphology Comment Appears Decreased L 05/10/20 12:18: Sodium 152 H, Potassium 6.1 H, Chloride 111 H, Carbon Dioxide 20 L, Anion Gap 27 H, BUN 57 H, Creatinine 2.26 H 05/10/20 17:11: BUN 53 H, Creatinine 2.14 H 05/11/20 05:42: Sodium 148 H, BUN 50 H, Creatinine 2.03 H, Total Bilirubin 1.9 H, Serum Total Protein 5.7 L, Albumin 3.2 L 05/11/20 05:55: RBC 4.55 L, Hgb 13.7 L, MCHC 31.8 L, RDW 16.4 H, Plt Count 42 L, MPV 12.9 H, Band Neuts % (Manual) 2 L, Lymphocytes % (Manual) 16 L, Reactive Lymphs % 11 H, Nucleated RBCs # (Man) 3 H, Plt Morphology Comment Appears Decreased L Microbiology - Entire Visit 04/22/20 10:34 Venous blood - Left Hand Blood Culture - Final Presumptive Corynebacterium sp 04/22/20 11:03 Venous blood - Left Arm Blood Culture - Final NO GROWTH IN 5 DAYS Vitals: Vital Signs (12 hours) Temp Pulse Resp BP 05/11/20 16:00 97.7 F 05/11/20 13:22 127/86 05/11/20 12:00 97.2 F L 05/11/20 10:38 115 H 18 Weight Admit Weight 265 lb 14.04 oz Weight 287 lb 14.779 oz Most Recent Monitor Data Heart Rate from ECG 130 NIBP 123/99 NIBP BP-Mean 107 Respiration from ECG 24 SpO2 87 Physical Exam: The patient was seen and examined on the day of discharge. Problem (1) Acute and chronic respiratory failure with hypoxia Code(s): J96.21 - ACUTE AND CHRONIC RESPIRATORY FAILURE WITH HYPOXIA Status: Acute (2) Chronic diastolic (congestive) heart failure Code(s): I50.32 - CHRONIC DIASTOLIC (CONGESTIVE) HEART FAILURE Status: Acute (3) Pancreatic mass Status: Acute Plan Prescriptions: Bumetanide [Bumex] 1 mg PO QAM #30 tab Apixaban [Eliquis] 2.5 mg PO BID #60 tab Home Medications: Medication Instructions Recorded Confirmed Type Atorvastatin Calcium 20 mg PO HS 04/22/20 05/07/20 History Docusate Sodium [Dulcolax Stool 100 mg PO DAILY 05/07/20 05/07/20 History Softener] Apixaban [Eliquis] 2.5 mg PO BID #60 tab 05/11/20 Rx Bumetanide [Bumex] 1 mg PO QAM #30 tab 05/11/20 Rx Carvedilol [Coreg] 6.25 mg PO BID tab 05/11/20 Rx Polyethylene Glycol 3350 [Miralax] 17 gm PO DAILYPRN PRN pk 05/11/20 Rx Allergies: No Known Allergies Allergy (Verified 06/25/19 11:20) Discharge Instructions:: Check your blood pressure and heart rate 3 times a day and shows readings to your primary care provider. -You will kidney function and electrolytes checked through primary care provider's office in 3 to 5 days. Activity:: Activity as Tolerated Nourishment:: Heart Healthy Diet, Low Sodium Diet, Renal Diet Additional Therapy Instructions:: follow up with PCP in 1 week, recheck blood work to make sure platelet count is stable. If become more swollen you can take extra dose of Bumex. Referrals: [facility] [Outside] JOHNATHON MORENO & [Primary Care Provider] - 3 Days Disposition: HOME HEALTH Quality CORE MEASURES:: N/A
--- NOTE | 2020-05-12 22:48 | EKG ---
Test Reason : Blood Pressure : / mmHG Vent. Rate : 098 BPM Atrial Rate : 119 BPM P-R Int : 000 ms QRS Dur : 142 ms QT Int : 402 ms P-R-T Axes : 000 022 196 degrees QTc Int : 513 ms Atrial fibrillation Left bundle branch block Abnormal ECG Confirmed by VANESSA FRANKS MD ([id number]), metropolitan editor ISAC YATES ([id number]) on 05/12/2020 10:48:01 PM Referred By: Confirmed By:VANESSA FRANKS MD
== END 2020-05-11 16:20 | disposition home health service (06) | DRG 207 ==
LOC: ERS 09:35 → ERHOLD 13:46 → CCU 17:13 → PACU-TCU 04-29 05:30
PROVIDERS: ADMIT Internal Medicine; ATTEND Internal Medicine
PROC: 0BC18ZZ Extirpation of Matter from Trachea, Via Natural or Artificial Opening Endoscopic (ICD-10-PCS; principal; 2020-04-22)
PROC: 5A1955Z Respiratory Ventilation, Greater than 96 Consecutive Hours (ICD-10-PCS; 2020-04-22)
PROC: 0BC38ZZ Extirpation of Matter from Right Main Bronchus, Via Natural or Artificial Opening Endoscopic (ICD-10-PCS; 2020-04-30)
DX: J98.09 Other diseases of bronchus, not elsewhere classified (principal); J96.21 Acute and chronic respiratory failure with hypoxia; G82.50 Quadriplegia, unspecified; G93.41 Metabolic encephalopathy; N17.9 Acute kidney failure, unspecified; I50.32 Chronic diastolic (congestive) heart failure; I13.0 Hypertensive heart and chronic kidney disease with heart failure and stage 1 through stage 4 chronic kidney disease, or unspecified chronic kidney disease; J98.11 Atelectasis; E87.3 Alkalosis; N18.4 Chronic kidney disease, stage 4 (severe); E87.0 Hyperosmolality and hypernatremia; I47.1 Supraventricular tachycardia; Z99.11 Dependence on respirator [ventilator] status; Z68.41 Body mass index [BMI] 40.0-44.9, adult; E87.2 Acidosis; I27.20 Pulmonary hypertension, unspecified; Z20.822 Contact with and (suspected) exposure to COVID-19; Z79.82 Long term (current) use of aspirin; K86.89 Other specified diseases of pancreas; E78.5 Hyperlipidemia, unspecified; E66.9 Obesity, unspecified; I48.0 Paroxysmal atrial fibrillation; D63.1 Anemia in chronic kidney disease; E87.5 Hyperkalemia; E86.1 Hypovolemia; E83.51 Hypocalcemia; K59.00 Constipation, unspecified; D69.6 Thrombocytopenia, unspecified; Z93.0 Tracheostomy status; Z98.1 Arthrodesis status; Z79.899 Other long term (current) drug therapy; Z79.01 Long term (current) use of anticoagulants; T50.2X5A Adverse effect of carbonic-anhydrase inhibitors, benzothiadiazides and other diuretics, initial encounter
CPT/HCPCS: 0240U; 36415; 36416; 36600; 51701; 70450; 71045; 71250; 76770; 80048; 80053; 81003; 81015; 82140; 82550; 82805; 83605; 83690; 83880; 84484; 85025; 85379; 85610; 85730; 87040; 93005; 93306; 94002; 94003; 94640; 96365; 96375; C9113; J0360; J0456; J1100; J1815; J1940; J2001; J2543; J2920; J3370; J3490; J7030; J7620; P9045; P9047; S0028